=== PATIENT | female | born 1950 | race African-American/Black ===

== ENCOUNTER 2020-01-04 22:32 | Inpatient (IN) | payer OTHER ==
--- NOTE | 2020-01-04 22:44 | PDOC ---
History of Present Illness - General Stated Complaint: G-TUBE REPLACEMENT Time Seen by Provider: 01/04/20 22:44 History Source: Patient, [facility] Records Exam Limitations: Dementia - History of Present Illness Initial Comments: 69 [facility] with PMH schizophrenia, CHF, DM, asthma, GERD, dysphagia, cerebral infarction BIBA to ED for G/J tube clogging. [place] records indicated J-tube, which she receives tube feeds for, is clogged. Pt endoursed no complaints and denied pain. ROS General: denied fever, chills, generalized weakness. HEENT: denied sore throat, rhinorrhea, ear pain. Cardiovascular: denied chest pain, palpitations, syncope, diaphoresis. Respiratory: denied shortness of breath, cough, sputum production, hemoptysis. Gastrointestinal: denied abdominal pain, nausea, vomiting, diarrhea, constipation, blood in stool. Genitourinary: denied dysuria, increased urinary frequency, hematuria, urinary incontinence, flank pain. Back: denied back pain. Musculoskeletal: denied joint pain, muscle pain, joint swelling. Neurological: denied headache, dizziness, numbness, tingling, weakness. Integumentary: denied rash, laceration, abrasion. Hematologic/Lymphatic: denied bruising or bleeding. PE Constitutional: Well-nourished, Well-developed, appearing stated age. HEENT: head is normocephalic, atraumatic. EOMI. PERRLA. pinpoint pupils bilaterally. Neck: supple. Full ROM. Cardiovascular: regular heart rhythm. Normal S1 and S2. no murmurs. no pericardial friction rub. Respiratory: clear to auscultation bilaterally. no crackles, rhonchi or wheezing. no stridor. Chest: right chest permacath noted. Gastrointestinal: soft, flat, nontender. G/J tube noted to abdomen, appears in place, no surrounding erythema or discharge. The G portion is attached to a de la garza bag with yellow gastric contents. The J-tube has food particles in it. normal bowel sounds. no rebound, guarding, or masses. Extremities: peripheral pulses intact and equal. no lower extremity edema noted. Neurological: CN 2-12 grossly intact. moves all four extremities. Psych: awake, alert, oriented x3. follows commands. answers questions appropriately. speaks with few words. Past History - Past Medical History Allergies/Adverse Reactions: Allergies Allergy/AdvReac Type Severity Reaction Status Date / Time lactose Allergy Verified 01/10/20 18:31 levofloxacin Allergy Verified 01/10/20 18:31 lisinopril Allergy Verified 01/10/20 18:31 Phenothiazines Allergy Verified 01/10/20 18:31 sulfamethoxazole Allergy Verified 01/10/20 18:31 [From Bactrim] trimethoprim [From Bactrim] Allergy Verified 01/10/20 18:31 zoysn Allergy Uncoded 01/10/20 18:31 Home Medications: Ambulatory Orders Acetaminophen Oral Solution [Tylenol Oral Solution -] 650 mg GT Q6H PRN Albuterol 2.5/Ipratropium 0.5 [Duoneb -] 1 neb IH QID 01/10/20 Carvedilol [Coreg -] 12.5 mg GT BID 01/10/20 Clopidogrel Bisulfate [Plavix -] 75 mg GT DAILY 01/10/20 Dextran 70/Hypromellose/Pf [Genteal Tears 0.1%-0.3% Drop] 1 each OU TID Fludrocortisone Acetate [Florinef -] 0.1 mg GT ASDIR 01/10/20 Furosemide Oral Solution [Lasix Oral Solution -] 20 mg GT DAILY 01/10/20 Heparin Sodium,Porcine [Heparin Sodium] 5,000 unit IJ Q12H 01/10/20 Hydrocortisone [Cortef -] 10 mg GT DAILY 01/10/20 Insulin Lispro [Humalog] 100 unit SQ TID 01/10/20 Levothyroxine Sodium [Unithroid] 100 mcg GT DAILY 01/10/20 Pantoprazole Suspension [Protonix Packets For Oral Suspension -] 40 mg GT DAILY 01/10/20 Risperidone [Risperdal Oral Soln] 2 mg GT HS 01/10/20 Risperidone [Risperdal Oral Soln] 3 mg GT DAILY 01/10/20 Sennosides [Senna] 10 ml GT DAILY PRN 01/10/20 ED Treatment Course - LABORATORY CBC & Chemistry Diagram: 01/05/20 05:30 01/05/20 05:30 Medical Decision Making - Medical Decision Making 69 year old female with above PMH [facility]. Initial Vital Signs Temp Pulse Resp BP Pulse Ox 98.2 F 73 18 105/53 L 96 01/04/20 23:43 01/04/20 23:43 01/04/20 23:43 01/04/20 23:43 01/04/20 23:43 Afebrile. No tachycardia. No tachypnea. Mild hypotension. No hypoxia on room air. Labs ordered: CBC, CMP, coags, T&S Imaging ordered: CXR Medications ordered: none EKG performed at I attempted to flush the J-tube, but was unsuccessful, pt will need to be admitted for GI evaluation and possible replacement. CXR my view: large heart. no infiltrate noted. right chest port noted. pacer/ defibrillator noted. increased interstitial findings. -Pending official report EKG performed at 0053: rate 67, regular rhythm, normal axis, normal intervals, QTc 481, no acute ST changes. 01/05/20 00:27 Laboratory Last Values WBC 9.3 K/mm3 (4.0-10.0) 01/04/20 23:25 RBC 3.30 M/mm3 (3.60-5.2) L 01/04/20 23:25 Hgb 10.4 GM/dL (10.7-15.3) L 01/04/20 23:25 Hct 31.8 % (32.4-45.2) L 01/04/20 23:25 MCV 96.2 fl (80-96) H 01/04/20 23:25 MCH 31.4 pg (25.7-33.7) 01/04/20 23: MCHC 32.6 g/dl (32.0-36.0) 01/04/20 23:25 RDW 19.9 % (11.6-15.6) H 01/04/20 23:25 Plt Count 355 K/MM3 (134-434) 01/04/20 23:25 MPV 7.8 fl (7.5-11.1) 01/04/20 23:25 Absolute Neuts (auto) 7.4 K/mm3 (1.5-8.0) 01/04/20 23:25 Neutrophils % 78.9 % (42.8-82.8) 01/04/20 23:25 Lymphocytes % 13.4 % (8-40) 01/04/20 23:25 Monocytes % 6.2 % (3.8-10.2) 01/04/20 23:25 Eosinophils % 0.7 % (0-4.5) 01/04/20 23:25 Basophils % 0.8 % (0-2.0) 01/04/20 23:25 Nucleated RBC % 0 % (0-0) 01/04/20 23:25 PT with INR 10.80 SEC (9.7-13.0) 01/04/20 23:25 INR 0.92 (0.83-1.09) 01/04/20 23:25 PTT (Actin FS) 41.5 SECONDS (25.2-36.5) H 01/04/20 23:25 Sodium Cancelled 01/04/20 23:25 Potassium Cancelled 01/04/20 23:25 Chloride Cancelled 01/04/20 23:25 Carbon Dioxide Cancelled 01/04/20 23:25 Anion Gap Cancelled 01/04/20 23:25 BUN Cancelled 01/04/20 23:25 Creatinine Cancelled 01/04/20 23:25 Est GFR (CKD-EPI)AfAm Cancelled 01/04/20 23:25 Est GFR (CKD-EPI)NonAf Cancelled 01/04/20 23:25 Random Glucose Cancelled 01/04/20 23:25 Calcium Cancelled 01/04/20 23:25 Total Bilirubin Cancelled 01/04/20 23:25 AST Cancelled 01/04/20 23:25 ALT Cancelled 01/04/20 23:25 Alkaline Phosphatase Cancelled 01/04/20 23:25 Total Protein Cancelled 01/04/20 23:25 Albumin Cancelled 01/04/20 23:25 Lab reported CMP hemolyzed. Re-draw sent. Pt to be admitted for GI eval and possible J/G-tube replacement. Discharge - Discharge Information Problems reviewed: Yes Clinical Impression/Diagnosis: Jejunostomy malfunction Condition: Stable Disposition: HALFWAY FACILITY - Admission Yes - Follow up/Referral - Patient Discharge Instructions - Post Discharge Activity
--- NOTE | 2020-01-04 23:07 | PDOC ---
Documentation entered by Cassandra Samuels SCRIBE, acting as scribe for Anisa Bryant MD. Anisa Bryant MD: This documentation has been prepared by the Arvind rubio Xhesika, SCRIBE, under my direction and personally reviewed by me in its entirety. I confirm that the documentation accurately reflects all work, treatment, procedures, and medical decision making performed by me. Attending Attestation - Resident Resident Name: LorenaCat - ED Attending Attestation I have performed the following: I have examined & evaluated the patient, The case was reviewed & discussed with the resident, I agree w/resident's findings & plan, Exceptions are as noted - HPI HPI: 01/04/20 23:04 69-year-old female brought in by ambulance from [facility] for replacement of a GT tube that was clogged It is not clear from the notes from the [facility] when this tube was initially placed Patient has not been to the emergency department before - Physicial Exam PE: 01/04/20 23:05 69-year-old female presents with JG tube for evaluation Head normocephalic atraumatic Lungs are clear to auscultation CVS is regular rate rhythm S1-S2 Abdomen is nontender there is a G J-tube that is in place and the gastric tube is draining bile, the J-tube is clogged Skin warm and dry Neuro patient is alert, has halting speech that is difficult to understand - Medical Decision Making 01/04/20 23:06 Past medical history significant for dysphasia ,recurrent aspiration pneumonia and therefore placement of GJ tube pt also has GERD, schizophrenia, diabetes 01/04/20 23:06 Patient needs to be admitted for GI consult and possible IR for replacement of the GJ tube Admit MedSurg 01/05/20 00:42
[2020-01-04 23:36] LABS: BASO % 0.8 % (0-2.0); EOS % 0.7 % (0-4.5); HEMATOCRIT 31.8 % (32.4-45.2); HEMOGLOBIN 10.4 GM/dL (10.7-15.3); LYMPH % 13.4 % (8-40); MCH 31.4 pg (25.7-33.7); MCHC 32.6 g/dl (32.0-36.0); MEAN CELL VOLUME 96.2 fl (80-96); MEAN PLT VOLUME 7.8 fl (7.5-11.1); MONO % 6.2 % (3.8-10.2); NEUT % 78.9 % (42.8-82.8); PLATELET COUNT 355 K/MM3 (134-434); RDW 19.9 % (11.6-15.6); WHITE BLOOD COUNT 9.3 K/mm3 (4.0-10.0)
[2020-01-04 23:55] VITALS: BMI 33.3
[2020-01-04 23:56] LABS: INR 0.92 (0.83-1.09); PROTHROMBIN TIME (PATIENT) 10.8 SEC (9.7-13.0)
[2020-01-05] MEDS ORDERED: SODIUM CHLORIDE 500 ML IV STA (00:10)
[2020-01-05 01:08] LABS: ALBUMIN 2.5 g/dl (3.4-5.0); BILIRUBIN,TOTAL 0.4 mg/dL (0.2-1); BLOOD UREA NITROGEN 82.6 mg/dL (7-18); CALCIUM 9.5 mg/dL (8.5-10.1); CREATININE 1.7 mg/dL (0.55-1.3); POTASSIUM 4.5 mmol/L (3.5-5.1); TOT PROT 7.5 g/dl (6.4-8.2)
--- NOTE | 2020-01-05 02:41 | HP ---
CHIEF COMPLAINT: G-J tube malfunction PCP: Dr. Chapa HISTORY OF PRESENT ILLNESS: 69F PMH schizophrenia, CHF, DM, CKD stage 3, hypothyroidism, Asthma GERD, dysphagia, cerebral infarct who presents today due to G-J tube malfunction. As per group home report patient was receiving feeds until approximately 8:30pm at which point there as a new noise from the machine used to deliver feeds. Staff alerted the MD who recommended transfer to [place]. Upon arrival here the tube could not be flushed. Patient states she is comfortable, and denies any abdominal pain, nausea, vomiting, diarrhea. She denies chest pain, shortness of breath, dysuria, and fevers and chills. She is able to communicate with the examiner but not all sentences are coherent. ER course was notable for: (1) G-J tube was not able to be flushed. (2) Chest X-ray was completed, did not show any acute pathology (3) Initial labs showed hypochloremia, and Hgb of 10.4 Recent Travel: None PAST MEDICAL HISTORY:schizophrenia, CHF, DM, CKD stage 3, hypothyroidism, Asthma GERD, dysphagia, cerebral infarct PAST SURGICAL HISTORY: Denies FAMILY MEDICAL HISTORY: Denies Social History: Smoking:Denies Alcohol:Denies Drugs: Denies Allergies lactose Allergy (Verified 01/05/20 02:19) levofloxacin Allergy (Verified 01/05/20 02:19) lisinopril Allergy (Verified 01/05/20 02:19) Phenothiazines Allergy (Verified 01/05/20 02:19) sulfamethoxazole [From Bactrim] Allergy (Verified 01/05/20 02:19) trimethoprim [From Bactrim] Allergy (Verified 01/05/20 02:19) zoysn Allergy (Uncoded 01/05/20 02:19) HOME MEDICATIONS: Home Medications Medication Instructions Recorded Albuterol 2.5/Ipratropium 0.5 3 ml NEB QID 01/05/20 [Duoneb -] Carvedilol [Coreg -] 12.5 mg GT BID 01/05/20 Clopidogrel Bisulfate [Clopidogrel] 75 mg GT DAILY 01/05/20 Dextran 70/Hypromellose/Pf 1 drop OU TID@0900,1700,2100 01/05/20 [Genteal Tears 0.1%-0.3% Drop] Fludrocortisone Acetate 1 tab GT ASDIR 01/05/20 Furosemide Oral Solution [Lasix 20 ml GT DAILY 01/05/20 Oral Solution -] Hydrocortisone 10 mg GT DAILY 01/05/20 Insulin Lispro [Humalog Kwikpen See Protocol SQ QID 01/05/20 U-100] Levothyroxine [Synthroid -] 100 mcg GT DAILY 01/05/20 Menthol/Zinc Oxide [Calmoseptine 1 applic TP TID 01/05/20 Ointment] Omeprazole 40 mg GT DAILY 01/05/20 Risperidone [Risperdal] 2 ml GT DAILY@1530 01/05/20 Risperidone [Risperdal] 3 ml GT DAILY@0900 01/05/20 REVIEW OF SYSTEMS CONSTITUTIONAL: Absent: fever, chills, diaphoresis, generalized weakness, malaise, loss of appetite, weight change HEENT: Absent: rhinorrhea, nasal congestion, throat pain, throat swelling, difficulty swallowing, mouth swelling, ear pain, eye pain, visual changes CARDIOVASCULAR: Absent: chest pain, syncope, palpitations, irregular heart rate, lightheadedness , peripheral edema RESPIRATORY: Absent: cough, shortness of breath, dyspnea with exertion, orthopnea, wheezing, stridor, hemoptysis GASTROINTESTINAL: Absent: abdominal pain, abdominal distension, nausea, vomiting, diarrhea, constipation, melena, hematochezia GENITOURINARY: Absent: dysuria, frequency, urgency, hesitancy, hematuria, flank pain, genital pain MUSCULOSKELETAL: Absent: myalgia, arthralgia, joint swelling, back pain, neck pain SKIN: Absent: rash, itching, pallor HEMATOLOGIC/IMMUNOLOGIC: Absent: easy bleeding, easy bruising, lymphadenopathy, frequent infections ENDOCRINE: Absent: unexplained weight gain, unexplained weight loss, heat intolerance, cold intolerance NEUROLOGIC: Absent: headache, focal weakness or paresthesias, dizziness, unsteady gait, seizure, mental status changes, bladder or bowel incontinence PHYSICAL EXAMINATION Vital Signs - 24 hr 01/04/20 01/05/20 23:43 02:36 Temperature 98.2 F 97.1 F L Pulse Rate 73 73 Respiratory 18 Rate Blood Pressure 105/53 L 109/67 O2 Sat by Pulse 96 Oximetry (%) GENERAL: Awake, alert, and fully oriented, in no acute distress. HEAD: Normal with no signs of trauma. EYES:ISABELLA, sclera anicteric EARS, NOSE, THROAT: Moist mucous membranes. LUNGS: Breath sounds equal, clear to auscultation bilaterally. No wheezes, and no crackles. No accessory muscle use. HEART: Regular rate and rhythm, normal S1 and S2 without murmur, rub or gallop. ABDOMEN: Nontender, normoactive bowel sounds. G-tube in placed, draining bilious drainage. Slight erythema around placement site. UPPER EXTREMITIES: 2+ pulses, warm, well-perfused. No cyanosis. No clubbing. No peripheral edema. LOWER EXTREMITIES: 2+ pulses, warm, well-perfused. No calf tenderness. No peripheral edema. NEUROLOGICAL: Cranial nerves II-XII intact. PSYCHIATRIC: Cooperative. Good eye contact. Appropriate mood and affect. ill. Laboratory Results - last 24 hr 01/04/20 01/04/20 01/04/20 23:25 23:25 23:25 WBC 9.3 RBC 3.30 L Hgb 10.4 L Hct 31.8 L MCV 96.2 H MCH 31.4 MCHC 32.6 RDW 19.9 H Plt Count 355 MPV 7.8 Absolute Neuts (auto) 7.4 Neutrophils % 78.9 Lymphocytes % 13.4 Monocytes % 6.2 Eosinophils % 0.7 Basophils % 0.8 Nucleated RBC % 0 PT with INR INR PTT (Actin FS) 41.5 H Sodium Cancelled Potassium Cancelled Chloride Cancelled Carbon Dioxide Cancelled Anion Gap Cancelled BUN Cancelled Creatinine Cancelled Est GFR (CKD-EPI)AfAm Cancelled Est GFR (CKD-EPI)NonAf Cancelled Random Glucose Cancelled Calcium Cancelled Total Bilirubin Cancelled AST Cancelled ALT Cancelled Alkaline Phosphatase Cancelled Total Protein Cancelled Albumin Cancelled Blood Type Antibody Screen 01/04/20 01/04/20 01/05/20 23:25 23:25 00:24 WBC RBC Hgb Hct MCV MCH MCHC RDW Plt Count MPV Absolute Neuts (auto) Neutrophils % Lymphocytes % Monocytes % Eosinophils % Basophils % Nucleated RBC % PT with INR 10.80 INR 0.92 PTT (Actin FS) Sodium 134 L Potassium 4.5 Chloride 94 L Carbon Dioxide 30 Anion Gap 11 BUN 82.6 H Creatinine 1.7 H Est GFR (CKD-EPI)AfAm 35.29 Est GFR (CKD-EPI)NonAf 30.45 Random Glucose 98 Calcium 9.5 Total Bilirubin 0.4 AST 17 ALT 15 Alkaline Phosphatase 169 H Total Protein 7.5 Albumin 2.5 L Blood Type B NEGATIVE Antibody Screen Negative ASSESSMENT/PLAN: 69F PMH schizophrenia, CHF, DM, CKD stage 3, hypothyroidism, Asthma GERD, dysphagia, cerebral infarct who presents today due to G-J tube malfunction. 1) Clogged G-J tube -J-tube was working until evening today. Unable to flush in the ED. Draining bilious fluid in the bag. -NPO -GI consulted appreciate recs 2)Hx of DM -HbA1c -Insulin Sliding scale 3) GERD -Holding home medications due to dysphagia and G-tube malfunction 4)Hypothyroidism -Holding home synthroid until tube replaced 5) Hx of CHF -Holding clopidogrel, carvedilol until Tube is replaced 6) Schizophrenia -Holding Risperdal until tube replaced 7)Normoctic anemia -Iron studies, ferritin, TSH, B12 8) Hx of CKD -Continue monitoring Creatinine and BUN -NS @ 75 ml/hr 9) Elevated transaminase -RUQ US F: NS @ 75 ml/hr E: Trend CMP N: NPO Dispo: Admit to Med/Surg Visit type - Emergency Visit Emergency Visit: Yes ED Registration Date: 01/05/20 Care time: The patient presented to the Emergency Department on the above date and was hospitalized for further evaluation of their emergent condition. - New Patient This patient is new to me today: Yes Date on this admission: 01/05/20 - Critical Care Critical Care patient: No ATTENDING PHYSICIAN STATEMENT I saw and evaluated the patient. I reviewed the resident's note and discussed the case with the resident. I agree with the resident's findings and plan as documented. SUBJECTIVE: OBJECTIVE: ASSESSMENT AND PLAN:
--- NOTE | 2020-01-05 04:18 | PN ---
Teaching Attending Note Name of Resident: Shena Plata ATTENDING PHYSICIAN STATEMENT I saw and evaluated the patient. I reviewed the resident's note and discussed the case with the resident. I agree with the resident's findings and plan as documented. SUBJECTIVE: History obtained from medical records and ER records as patient is a poor historian. 69-year-old resident of [facility] with history of schizophrenia, CHF status post AICD, status post right chest Chemo-Port insertion, diabetes mellitus, asthma, GERD, dysphagia, CVA brought in by ambulance after J-tube was clogged and unable to be flushed. Patient herself does not have any complaints. OBJECTIVE: Last Vital Signs Temp Pulse Resp BP Pulse Ox 97.1 F L 73 18 109/67 99 01/05/20 02:36 01/05/20 02:36 01/04/20 23:43 01/05/20 02:36 01/05/20 04:00 On physical exam patient was a elderly lady with unintelligible speech appeared to be sitting in chair. Not in any visible distress. Lungs are clear to auscultation bilaterally, cardiac exam showed S1, S2 with normal rate and rhythm. Abdomen was soft nontender with normal bowel sounds with PEG in place. No lower extremity edema appreciated Abnormal Lab Results 01/04/20 01/04/20 01/05/20 23:25 23:25 00:24 RBC 3.30 L Hgb 10.4 L Hct 31.8 L MCV 96.2 H RDW 19.9 H PTT (Actin FS) 41.5 H Sodium 134 L Chloride 94 L BUN 82.6 H Creatinine 1.7 H Alkaline Phosphatase 169 H Albumin 2.5 L Imaging studies reviewed ASSESSMENT AND PLAN: #Clogged J-tube Admit to [facility] GI consult for J-tube replacement PT/PTT/type and screen Keep n.p.o. for now Fall precautions and bedrest #Diabetes mellitus Send A1c NovoLog sliding scale Basal insulin #GERD Holding medication till J-tube was replaced #Hypothyroidism Holding Synthroid until J-tube is replaced #CHF/CAD? Hold clopidogrel, carvedilol until J-tube is replaced #Schizophrenia Hold Risperdal until J-tube is replaced #Normocytic anemia Iron studies, ferritin, TSH, vitamin B12 #Elevated creatinineuncertain if CKD or DONIS Trend renal parameters IV fluid hydration #Hypoalbuminemia #Elevated alk phos Right upper quadrant ultrasound #DVT prophylaxisheparin subcutaneously
[2020-01-05] MEDS ORDERED: HEPARIN NA (PORCINE) 5,000 UNITS/ML 1ML VIAL ONE (06:24)
[2020-01-05 06:30] LABS: BASO % 0.6 % (0-2.0); EOS % 1.1 % (0-4.5); HEMATOCRIT 30.8 % (32.4-45.2); HEMOGLOBIN 10.4 GM/dL (10.7-15.3); LYMPH % 17.8 % (8-40); MCH 31.9 pg (25.7-33.7); MCHC 33.7 g/dl (32.0-36.0); MEAN CELL VOLUME 94.6 fl (80-96); MEAN PLT VOLUME 7.5 fl (7.5-11.1); MONO % 5.4 % (3.8-10.2); NEUT % 75.1 % (42.8-82.8); PLATELET COUNT 398 K/MM3 (134-434); RBC 3.26 M/mm3 (3.60-5.2); RDW 20.1 % (11.6-15.6); WHITE BLOOD COUNT 8.4 K/mm3 (4.0-10.0)
[2020-01-05] MEDS: HEPARIN NA (PORCINE) 5,000 UNITS/ML 1ML VIAL SQ SCH ×3 (06:33→21:19)
[2020-01-05] MEDS: INSULIN SLIDING SCALE (NOVOLOG) 1 VIAL SQ SCH ×4 (06:33→21:20)
[2020-01-05 06:42] LABS: INR 0.92 (0.83-1.09); PROTHROMBIN TIME (PATIENT) 10.8 SEC (9.7-13.0)
[2020-01-05 06:45] LABS: ACTIVATED PTT 58.9 SECONDS (25.2-36.5)
[2020-01-05 07:07] LABS: ALBUMIN 2.8 g/dl (3.4-5.0); BILIRUBIN,TOTAL 0.3 mg/dL (0.2-1); BLOOD UREA NITROGEN 89.4 mg/dL (7-18); CREATININE 1.8 mg/dL (0.55-1.3); POTASSIUM 4.6 mmol/L (3.5-5.1); TOT PROT 7.9 g/dl (6.4-8.2)
--- NOTE | 2020-01-05 10:41 | EKG ---
Test Reason : Blood Pressure : / mmHG Vent. Rate : 067 BPM Atrial Rate : 067 BPM P-R Int : 162 ms QRS Dur : 094 ms QT Int : 456 ms P-R-T Axes : 055 -22 034 degrees QTc Int : 481 ms NORMAL SINUS RHYTHM POSSIBLE LEFT ATRIAL ENLARGEMENT LEFT VENTRICULAR HYPERTROPHY ABNORMAL ECG NO PREVIOUS ECGS AVAILABLE Confirmed by Rom Scott MD ([id number]) on 01/05/2020 10:41:09 AM Referred By: Confirmed By:Rom Scott MD
[2020-01-05] MEDS ORDERED: VANCOMYCIN 1 GM in D5W (PRE-DOCKED) 1,000 MG/250 ML IVPB ONE (11:13)
[2020-01-05] MEDS ORDERED: HYDROCORTISONE SOD SUCCINATE 100 MG/2 ML VIAL IVPB SCH (11:15)
--- NOTE | 2020-01-05 11:26 | PN ---
Progress Note (short form) - Note Progress Note: Spoke with PMD- DR Chapa-- h/o adrenal insufficiency , schizophrenia,CHF, GERD , large hiatal hernia, CAD, s/p PPM She is hypothermic-- as per PMD-- she is on Florinef-- she gets episodes of hypotension, hypothermia No distress She was sent here by [facility] [place] for malfunction J tube Vital Signs - 24 hr 01/04/20 01/05/20 01/05/20 23:43 02:36 04:00 Temperature 98.2 F 97.1 F L Pulse Rate 73 73 Pulse Rate [ Left] Pulse Rate [ Right Radial] Respiratory 18 Rate Blood Pressure 105/53 L 109/67 Blood Pressure [Left Arm] Blood Pressure [Right Arm] O2 Sat by Pulse 96 99 Oximetry (%) 01/05/20 01/05/20 01/05/20 04:35 06:43 10:54 Temperature 95.0 F L Pulse Rate 76 Pulse Rate [ 78 Left] Pulse Rate [ 75 Right Radial] Respiratory 19 16 18 Rate Blood Pressure 101/59 L Blood Pressure 107/63 [Left Arm] Blood Pressure 102/71 [Right Arm] O2 Sat by Pulse 96 99 Oximetry (%) Current Medications Generic Name Dose Route Start Last Admin Trade Name Freq PRN Reason Stop Dose Admin Heparin Sodium (Porcine) 5,000 unit 01/05/20 06:00 01/05/20 06:33 Heparin - SQ 5,000 unit TID [facility] Administration Hydrocortisone Sodium Succinate 100 mg 01/05/20 11:15 Solu-Cortef - IVPB Q8H [facility] Dextrose/Sodium Chloride 1,000 mls @ 83 mls/hr 01/05/20 11:15 D5-Ns - IV ASDIR [facility] Insulin Aspart 1 vial 01/05/20 07:00 01/05/20 06:33 Novolog Vial Sliding Scale - SQ Not Given ACHS [facility] Protocol Laboratory Results - last 24 hr 01/04/20 01/04/20 01/04/20 23:25 23:25 23:25 WBC 9.3 RBC 3.30 L Hgb 10.4 L Hct 31.8 L MCV 96.2 H MCH 31.4 MCHC 32.6 RDW 19.9 H Plt Count 355 MPV 7.8 Absolute Neuts (auto) 7.4 Neutrophils % 78.9 Lymphocytes % 13.4 Monocytes % 6.2 Eosinophils % 0.7 Basophils % 0.8 Nucleated RBC % 0 PT with INR INR PTT (Actin FS) 41.5 H Sodium Cancelled Potassium Cancelled Chloride Cancelled Carbon Dioxide Cancelled Anion Gap Cancelled BUN Cancelled Creatinine Cancelled Est GFR (CKD-EPI)AfAm Cancelled Est GFR (CKD-EPI)NonAf Cancelled POC Glucometer Random Glucose Cancelled Hemoglobin A1c % Calcium Cancelled Iron TIBC Iron Saturation Unsaturated IBC Ferritin Total Bilirubin Cancelled AST Cancelled ALT Cancelled Alkaline Phosphatase Cancelled Total Protein Cancelled Albumin Cancelled Vitamin B12 TSH Blood Type Antibody Screen 01/04/20 01/04/20 01/05/20 23:25 23:25 00:24 WBC RBC Hgb Hct MCV MCH MCHC RDW Plt Count MPV Absolute Neuts (auto) Neutrophils % Lymphocytes % Monocytes % Eosinophils % Basophils % Nucleated RBC % PT with INR 10.80 INR 0.92 PTT (Actin FS) Sodium 134 L Potassium 4.5 Chloride 94 L Carbon Dioxide 30 Anion Gap 11 BUN 82.6 H Creatinine 1.7 H Est GFR (CKD-EPI)AfAm 35.29 Est GFR (CKD-EPI)NonAf 30.45 POC Glucometer Random Glucose 98 Hemoglobin A1c % Calcium 9.5 Iron TIBC Iron Saturation Unsaturated IBC Ferritin Total Bilirubin 0.4 AST 17 ALT 15 Alkaline Phosphatase 169 H Total Protein 7.5 Albumin 2.5 L Vitamin B12 TSH Blood Type B NEGATIVE Antibody Screen Negative 01/05/20 01/05/20 01/05/20 05:30 05:30 05:30 WBC 8.4 RBC 3.26 L Hgb 10.4 L Hct 30.8 L MCV 94.6 MCH 31.9 MCHC 33.7 RDW 20.1 H Plt Count 398 MPV 7.5 Absolute Neuts (auto) 6.3 Neutrophils % 75.1 Lymphocytes % 17.8 D Monocytes % 5.4 Eosinophils % 1.1 Basophils % 0.6 Nucleated RBC % 0 PT with INR 10.80 INR 0.92 PTT (Actin FS) 58.9 H Sodium 135 L Potassium 4.6 Chloride 90 L Carbon Dioxide 35 H Anion Gap 11 BUN 89.4 H Creatinine 1.8 H Est GFR (CKD-EPI)AfAm 32.94 Est GFR (CKD-EPI)NonAf 28.42 POC Glucometer Random Glucose 124 H Hemoglobin A1c % Calcium 10.0 Iron 93 TIBC 380 Iron Saturation 24 Unsaturated IBC 287 H Ferritin 623.1 H Total Bilirubin 0.3 AST 16 ALT 19 Alkaline Phosphatase 180 H Total Protein 7.9 Albumin 2.8 L Vitamin B12 857 TSH 7.31 H Blood Type Antibody Screen 01/05/20 01/05/20 05:30 06:22 WBC RBC Hgb Hct MCV MCH MCHC RDW Plt Count MPV Absolute Neuts (auto) Neutrophils % Lymphocytes % Monocytes % Eosinophils % Basophils % Nucleated RBC % PT with INR INR PTT (Actin FS) Sodium Potassium Chloride Carbon Dioxide Anion Gap BUN Creatinine Est GFR (CKD-EPI)AfAm Est GFR (CKD-EPI)NonAf POC Glucometer 118 Random Glucose Hemoglobin A1c % 4.9 Calcium Iron TIBC Iron Saturation Unsaturated IBC Ferritin Total Bilirubin AST ALT Alkaline Phosphatase Total Protein Albumin Vitamin B12 TSH Blood Type Antibody Screen S1 S2 RRR Lungs clear Abd- soft, NT Right chest wall portcath Left PPM J tube + No edema A/P Adrenal insuff -- start Hydrocortisone IV -- on jessica hugger as she is hypothermic Malfunction J tube -- GI called by hospitalist team -- IR consult -- iv fluids DVT prophylaxis-- Heparin sc Problem List - Problems (1) Adrenal insufficiency Code(s): E27.40 - UNSPECIFIED ADRENOCORTICAL INSUFFICIENCY (2) CHF (congestive heart failure) Code(s): I50.9 - HEART FAILURE, UNSPECIFIED (3) CAD (coronary artery disease) Code(s): I25.10 - ATHSCL HEART DISEASE OF [place] CORONARY ARTERY W/O ANG PCTRS (4) Jejunostomy malfunction Code(s): K94.13 - ENTEROSTOMY MALFUNCTION
[2020-01-05] MEDS: DEXTROSE 5%-NORMAL SALINE 1,000 ML IV SCH (11:33)
[2020-01-05] MEDS ORDERED: LEVOTHYROXINE SODIUM 100 MCG VIAL IVPUSH SCH (12:00)
[2020-01-05] MEDS ORDERED: PT OWN MED DRAWER 7, Y5N ONE ×2 (12:28→21:11)
--- NOTE | 2020-01-05 14:19 | CON.GI ---
Consult Consult Specialty:: GI Referred by:: Dr. Plata Reason for Consultation:: Clogged J-tube - History of Present Illness Chief Complaint: Clogged J-tube History of Present Illness: Called to see patient for clogged G-J tube. Gastrostomy tube flushes without issue. Unable to pass material through jejunostomy port with modest pressure. Attempted to pass endoscopy cleaning brush, but lumen too narrow. Reason for J portion not clear. Date of placement unclear as well. Patient not conversant. - History Source History Provided By: Medical Record Limitations to Obtaining History: Unresponsive - Alcohol/Substance Use Hx Alcohol Use: No - Smoking History Smoking history: Unknown if ever smoked Have you smoked in the past 12 months: No Home Medications - Allergies Allergies/Adverse Reactions: Allergies Allergy/AdvReac Type Severity Reaction Status Date / Time lactose Allergy Verified 01/05/20 02:19 levofloxacin Allergy Verified 01/05/20 02:19 lisinopril Allergy Verified 01/05/20 02:19 Phenothiazines Allergy Verified 01/05/20 02:19 sulfamethoxazole Allergy Verified 01/05/20 02:19 [From Bactrim] trimethoprim [From Bactrim] Allergy Verified 01/05/20 02:19 zoysn Allergy Uncoded 01/05/20 02:19 - Home Medications Home Medications: Ambulatory Orders Albuterol 2.5/Ipratropium 0.5 [Duoneb -] 3 ml NEB QID 01/05/20 Carvedilol [Coreg -] 12.5 mg GT BID 01/05/20 Clopidogrel Bisulfate [Clopidogrel] 75 mg GT DAILY 01/05/20 Dextran 70/Hypromellose/Pf [Genteal Tears 0.1%-0.3% Drop] 1 drop OU TID@0900, 1700,2100 01/05/20 Fludrocortisone Acetate 1 tab GT ASDIR 01/05/20 Furosemide Oral Solution [Lasix Oral Solution -] 20 ml GT DAILY 01/05/20 Hydrocortisone 10 mg GT DAILY 01/05/20 Insulin Lispro [Humalog Kwikpen U-100] See Protocol SQ QID 01/05/20 Levothyroxine [Synthroid -] 100 mcg GT DAILY 01/05/20 Menthol/Zinc Oxide [Calmoseptine Ointment] 1 applic TP TID 02/12/20 Omeprazole 40 mg GT DAILY 01/05/20 Risperidone [Risperdal] 2 ml GT DAILY@1530 01/05/20 Risperidone [Risperdal] 3 ml GT DAILY@0900 01/05/20 Physical Exam-GI Vital Signs: Vital Signs Temperature 95.0 F L 01/05/20 10:54 Pulse Rate 76 01/05/20 10:54 Respiratory Rate 18 01/05/20 10:54 Blood Pressure 101/59 L 01/05/20 10:54 O2 Sat by Pulse Oximetry (%) 91 L 01/05/20 12:57 Gastrointestinal Inspection: Yes: Other (G-tube with multiple ports epigastrum.) ...Palpate: Yes: Soft. No: Tenderness Labs: CBC, BMP 01/05/20 05:30 01/05/20 05:30 INR, PTT INR 0.92 (0.83-1.09) 01/05/20 05:30 Assessment/Plan Reviewed with 8W nurse. Agree with current plan for IR to OK to use G-tube for meds at this time. Uncertain reason for J portion of G-J tube. Will reassess following IR evaluation.
[2020-01-05] MEDS: HYDROCORTISONE 10 MG TABLET GT SCH (17:38)
[2020-01-05] MEDS: LEVOTHYROXINE NA 100 MCG TABLET (FP) GT SCH (17:38)
[2020-01-05] MEDS ORDERED: INSULIN (NOVOLOG) ASPART 100 UNITS/ML 10ML VIAL ONE (21:11)
[2020-01-05] MEDS: CARVEDILOL 12.5 MG TABLET (FP) GT SCH (21:20)
[2020-01-06] MEDS: FAMOTIDINE 40 MG/5 ML ORAL SUSPENSION NGT SCH ×2 (00:20→09:40)
[2020-01-06] MEDS: HEPARIN NA (PORCINE) 5,000 UNITS/ML 1ML VIAL SQ SCH ×2 (06:24→14:36)
[2020-01-06] MEDS: INSULIN SLIDING SCALE (NOVOLOG) 1 VIAL SQ SCH ×3 (06:24→18:11)
[2020-01-06] MEDS ORDERED: risperiDONE 1 MG/1 ML ML - 30 ML BOTTLE GT SCH ×2 (09:00→15:30)
[2020-01-06] MEDS ORDERED: PT OWN MED DRAWER 7, Y5N ONE ×2 (09:33→14:34)
[2020-01-06] MEDS: HYDROCORTISONE 10 MG TABLET GT SCH (09:39)
[2020-01-06] MEDS: LEVOTHYROXINE NA 100 MCG TABLET (FP) GT SCH (09:39)
[2020-01-06] MEDS: CARVEDILOL 12.5 MG TABLET (FP) GT SCH (09:39)
[2020-01-06] MEDS ORDERED: FUROSEMIDE 40 MG/5 ML UNIT-DOSE CUP GT SCH (10:00)
[2020-01-06] MEDS ORDERED: FLUDROCORTISONE ACETATE 0.1 MG TABLET (FP) GT SCH (10:00)
[2020-01-06] MEDS ORDERED: MORPHINE SULFATE 2 MG/ML VIAL IVPUSH PRN (11:04)
--- NOTE | 2020-01-06 11:33 | DS ---
Physical Examination Vital Signs: Vital Signs Temperature 95.0 F L 01/06/20 09:38 Pulse Rate 75 01/06/20 09:38 Respiratory Rate 18 01/06/20 09:38 Blood Pressure 124/70 01/06/20 09:38 O2 Sat by Pulse Oximetry (%) 94 L 01/05/20 21:00 Constitutional: Yes: No Distress Cardiovascular: Yes: Regular Rate and Rhythm Respiratory: Yes: Diminished Gastrointestinal: Yes: Normal Bowel Sounds, Soft. No: Tenderness Edema: No Labs: CBC, BMP 01/05/20 05:30 01/05/20 05:30 Discharge Summary Problems reviewed: Yes Reason For Visit: MALFUNCTION OF JEJUNOSTOMY Current Active Problems Adrenal insufficiency (Acute) CAD (coronary artery disease) (Acute) CHF (congestive heart failure) (Acute) Jejunostomy malfunction (Acute) Health Concerns: sent from [facility] for malfunction J tube GI evaluated pt-- gastric port is working but J - port is not Sent to IR today now functioning well stable for dc to [place] Condition: Stable - Instructions Referrals: Reymundo Chapa MD [Primary Care Provider] - Disposition: [facility] - Home Medications Comprehensive Discharge Medication List: Ambulatory Orders Albuterol 2.5/Ipratropium 0.5 [Duoneb -] 3 ml NEB QID 01/05/20 Carvedilol [Coreg -] 12.5 mg GT BID 01/05/20 Clopidogrel Bisulfate [Clopidogrel] 75 mg GT DAILY 01/05/20 Dextran 70/Hypromellose/Pf [Genteal Tears 0.1%-0.3% Drop] 1 drop OU TID@0900, 1700,2100 01/05/20 Fludrocortisone Acetate 1 tab GT ASDIR 01/05/20 Furosemide Oral Solution [Lasix Oral Solution -] 20 ml GT DAILY 01/05/20 Hydrocortisone 10 mg GT DAILY 01/05/20 Insulin Lispro [Humalog Kwikpen U-100] See Protocol SQ QID 01/05/20 Levothyroxine [Synthroid -] 100 mcg GT DAILY 01/05/20 Menthol/Zinc Oxide [Calmoseptine Ointment] 1 applic TP TID 01/05/20 Omeprazole 40 mg GT DAILY 01/05/20 Risperidone [Risperdal] 2 ml GT DAILY@1530 01/05/20 Risperidone [Risperdal] 3 ml GT DAILY@0900 01/05/20
[2020-01-06] MEDS: DEXTROSE 5%-NORMAL SALINE 1,000 ML IV SCH (11:57)
[2020-01-06 19:08] VITALS: BP 120/68; PULSE 45; TEMP 98
== END 2020-01-06 21:12 | DRG 394 ==
LOC: JER 22:32 → JERBED 01-05 00:27 → J8W 01-05 09:14
PROVIDERS: ADMIT Internal Medicine; ATTEND Internal Medicine
PROC: 0D2 Gastrointestinal System, Change (ICD-10-PCS; principal; 2020-01-06)
DX: K94.13 Enterostomy malfunction (principal); I13.0 Hypertensive heart and chronic kidney disease with heart failure and stage 1 through stage 4 chronic kidney disease, or unspecified chronic kidney disease; E27.40 Unspecified adrenocortical insufficiency; E11.9 Type 2 diabetes mellitus without complications; I50.9 Heart failure, unspecified; J45.909 Unspecified asthma, uncomplicated; F20.9 Schizophrenia, unspecified; D64.9 Anemia, unspecified; R74.0 Nonspecific elevation of levels of transaminase and lactic acid dehydrogenase [LDH]; E03.9 Hypothyroidism, unspecified; E88.09 Other disorders of plasma-protein metabolism, not elsewhere classified; I25.10 Atherosclerotic heart disease of native coronary artery without angina pectoris; K21.9 Gastro-esophageal reflux disease without esophagitis; N18.3 Chronic kidney disease, stage 3 (moderate); Y83.9 Surgical procedure, unspecified as the cause of abnormal reaction of the patient, or of later complication, without mention of misadventure at the time of the procedure
CPT/HCPCS: 36415; 49452; 71045-TC-FY; 76000-TC-FY; 76705-TC; 80053; 82607; 82728; 82962; 83036; 83540; 83550; 84443; 85025; 85610; 85730; 86850; 86900; 86901; 93005; 93010; 99285-25; C1769; C1887; J1644

== ENCOUNTER 2020-01-10 18:14 | Inpatient (IN) | payer OTHER ==
--- NOTE | 2020-01-10 18:27 | PDOC ---
History of Present Illness - General Chief Complaint: Revisit, Lab Variance Stated Complaint: ABNOMRAL LABS Time Seen by Provider: 01/10/20 18:24 History Source: Patient Exam Limitations: No Limitations - History of Present Illness Initial Comments: 01/10/20 18:25 HPI: 69yo F PMH schizophrenia, CHF, CKD, DM, asthma, GERD, dysphagia, cerebral infarction BIBEMS from [facility] for elevated K (6.2). Patient denies any symptoms, when asked if anything is bothering her she requests a kate tigist. Has jejunostomy tube in place, de la garza catheter draining somewhat cloudy urine. Denies fevers, chills, chest/abdominal pain, nausea, vomiting, SOB. All: Per chart Meds: Per chart PMH: As above PSH: Per chart [facility] Past History - Travel Traveled outside of the country in the last 30 days: No Close contact w/someone who was outside of country & ill: No - Past Medical History Allergies/Adverse Reactions: Allergies Allergy/AdvReac Type Severity Reaction Status Date / Time lactose Allergy Verified 01/10/20 18:31 levofloxacin Allergy Verified 01/10/20 18:31 lisinopril Allergy Verified 01/10/20 18:31 Phenothiazines Allergy Verified 01/10/20 18:31 sulfamethoxazole Allergy Verified 01/10/20 18:31 [From Bactrim] trimethoprim [From Bactrim] Allergy Verified 01/10/20 18:31 zoysn Allergy Uncoded 01/10/20 18:31 Home Medications: Ambulatory Orders Acetaminophen Oral Solution [Tylenol Oral Solution -] 650 mg GT Q6H PRN Albuterol 2.5/Ipratropium 0.5 [Duoneb -] 1 neb IH QID 01/10/20 Carvedilol [Coreg -] 12.5 mg GT BID 01/10/20 Clopidogrel Bisulfate [Plavix -] 75 mg GT DAILY 01/10/20 Dextran 70/Hypromellose/Pf [Genteal Tears 0.1%-0.3% Drop] 1 each OU TID Fludrocortisone Acetate [Florinef -] 0.1 mg GT ASDIR 01/10/20 Furosemide Oral Solution [Lasix Oral Solution -] 20 mg GT DAILY 01/10/20 Heparin Sodium,Porcine [Heparin Sodium] 5,000 unit IJ Q12H 01/10/20 Hydrocortisone [Cortef -] 10 mg GT DAILY 01/10/20 Insulin Lispro [Humalog] 100 unit SQ TID 01/10/20 Levothyroxine Sodium [Unithroid] 100 mcg GT DAILY 01/10/20 Pantoprazole Suspension [Protonix Packets For Oral Suspension -] 40 mg GT DAILY 01/10/20 Risperidone [Risperdal Oral Soln] 2 mg GT HS 01/10/20 Risperidone [Risperdal Oral Soln] 3 mg GT DAILY 01/10/20 Sennosides [Senna] 10 ml GT DAILY PRN 01/10/20 Anemia: Yes Asthma: Yes COPD: Yes CHF: Yes GI Disorders: Yes (GERD) - Psycho Social/Smoking Cessation Hx Smoking History: Unknown if ever smoked Have you smoked in the past 12 months: No Hx Alcohol Use: No Drug/Substance Use Hx: No Substance Use Type: None Hx Substance Use Treatment: No Review of Systems - Review of Systems Able to Perform ROS?: Yes Is the patient limited Norwegian proficient: Yes Constitutional: No: Chills, Fever, Weakness HEENTM: No: Nose Congestion, Throat Pain Respiratory: No: Cough, Shortness of Breath Cardiac (ROS): No: Chest Pain, Irregular Heart Rate, Lightheadedness, Palpitations, Syncope, Chest Tightness ABD/GI: No: Constipated, Diarrhea, Nausea, Poor Appetite, Poor Fluid Intake, Vomiting : No: Burning, Dysuria, Frequency Musculoskeletal: No: Back Pain, Muscle Pain, Muscle Weakness Integumentary: No: Pruritus, Rash Neurological: No: Headache, Numbness, Tingling, Weakness Psychiatric: No: Stressors, Change in Appetite Endocrine: No: Increased Thirst, Increased Urine Hematologic/Lymphatic: No: Anemia, Blood Clots, Easy Bleeding All Other Systems: Reviewed and Negative *Physical Exam - Physical Exam 01/10/20 19:02 Vitals reviewed, AFVSS, borderline hypotensive GEN: Chronically ill, appears stated age, NAD, comfortable. AAOx2 (name, hospital, did not know president). HEENT: NCAT, EOMI, PERRL. Sclera anicteric, non-injected. No facial asymmetry. Moist mucous membranes. Trachea midline. CV: RRR, S1/S2, no murmurs / rubs / gallops appreciated. LUNG: CTAB, normal work of breathing. No wheezes, rales, rhonchi. No cough. Speaking full sentences. GI: Soft, NTND, +BS, no guarding, no rebound. No masses. Neg CVAT b/l. + Jejunostomy tube in place, de la garza in place. EXTREMITIES: 2+ distal pulses. No LE edema. No obvious deformities of all extremities. SKIN: Warm, dry, no rashes appreciated, non-jaundiced. PSYCH: Normal mood and affect. Cooperative and appropriate. NEURO: CN grossly intact. Moving all extremities well. Normal strength and sensation grossly. ED Treatment Course - LABORATORY CBC & Chemistry Diagram: 01/10/20 19:20 01/10/20 21:41 Medical Decision Making - Critical Care Time Total Critical Care Time (minutes): 90 Critical Care Statement: The care of this patient involved high complexity decision making to prevent further life threatening deterioration of the patient 's condition and/or to evaluate & treat vital organ system(s) failure or risk of failure. Management of critical high potassium, torsade de pointes. - Medical Decision Making 01/10/20 18:40 69yo F PMH schizophrenia, CHF, CKD, DM, asthma, GERD, dysphagia, cerebral infarction BIBEMS from [facility] for elevated K (6.2). - CBC, CMP, Cardiac Profile, EKG, UA, UCx EKbpm, NSR, left axis deviation, QTc 439, no ST changes, no peaked T waves or QRS widening 01/10/20 20:56 - Mild leukocytosis - K 7.2, BUN 144, Cr 4.5 - Calcium Gluconate 1000 mg / 20min - D50, Regular Insulin 10 U - Albuterol Nebs x3 - Lokelma 10mg - Will repeat BMP and EKG following treatment administration 01/10/20 21:55 - S/p 2mg Magnesium - 2nd IV placed by Dr. Conti under US guidance - 1L NS running Dispo: Admission 01/10/20 22:22 - ICU team onboard - Sign-out given to hospitalist DIGITAL CAMPAIGN SPECIALIST - Dr. Blount aware, coming in - Call placed to Vascular Surgery for line placement - Spoke with Patient's sister, Whit, states that she is HCP, patient is Full Code - Patient has not been on HD before, but she and sister agree to it Dispo: ICU, Gustabo Silav 01/10/20 23:03 - S/p calcium gluconate - K 5.3 on repeat - Amiodarone given 150 x 2 Discharge - Discharge Information Problems reviewed: Yes Clinical Impression/Diagnosis: Hyperkalemia, DONIS (acute kidney injury) Condition: Guarded - Admission Yes - Follow up/Referral - Patient Discharge Instructions - Post Discharge Activity
--- NOTE | 2020-01-10 18:43 | PDOC ---
Documentation entered by Sanjana Kilgore SCRIBE, acting as scribe for Anisa Bryant MD. Anisa Bryant MD: This documentation has been prepared by the scribe, Sanjana Kilgore SCRIBE, under my direction and personally reviewed by me in its entirety. I confirm that the documentation accurately reflects all work, treatment, procedures, and medical decision making performed by me. Attending Attestation - Resident Resident Name: Nixon Fountain - ED Attending Attestation I have performed the following: I have examined & evaluated the patient, The case was reviewed & discussed with the resident, I agree w/resident's findings & plan, Exceptions are as noted - HPI HPI: 01/10/20 18:42 69-year-old female [facility]. The patient is a 69-year-old female with a past medical history significant for schizophrenia, COPD, CHF,HTN, CKD, hypothyroidism, cerebral infarct, dysphagia, DM, jejunostomy who presents to the emergency department from [facility] for evaluation for elevated potassium. - Physicial Exam PE: 01/10/20 21:11 GENERAL: Conversant 70 year old female, who can tell you her name. Well-appearing, well-nourished. No apparent distress. HEENT: +pinpoint pupils. Normocephalic, atraumatic. CARDIOVASCULAR: Normal S1, S2. Regular rhythm. CHEST: Port in place to anterior chest. PULMONARY: Clear to auscultation bilaterally. ABDOMEN: +protuberant abdomen, soft. Feeding tube without erythema or drainage from the area. EXTREMITIES: Normal ROM in all four extremities. No gross deformities. SKIN: Warm, dry. No rash NEUROLOGICAL: Alert and oriented x1, Able to raise all extremities, follows simple commands. - Critical Care Time Total Critical Care Time: 90 Critical Care Statement: The care of this patient involved high complexity decision making to prevent further life threatening deterioration of the patient 's condition and/or to evaluate & treat vital organ system(s) failure or risk of failure. - Medical Decision Making 01/10/20 22:08 Bedside bladder ultrasound did not show any appreciable urine in the bladder 01/10/20 22:08 Patient had a witnessed run of V. tach and was given amiodarone 300 mg IV bolus she had a second run an amiodarone infusion was started she was also given magnesium she also had a run of torsades Dr. Hernandez was consulted and came in and saw the pt, He also spoke to the sister, Whit who gave permission for dialysis if it was needed I also witnessed the sister's giving approval for dialysis and any other live saving procedures needed including intubation 01/10/20 23:16 01/10/20 23:22 REPEAT K=5.3 and pt will not need emergent dialysis pt accepted for admission to ICU
[2020-01-10 20:14] LABS: BASO % 0.2 % (0-2.0); EOS % 0.2 % (0-4.5); HEMATOCRIT 40.6 % (32.4-45.2); HEMOGLOBIN 13.2 GM/dL (10.7-15.3); LYMPH % 12.2 % (8-40); MCH 31.7 pg (25.7-33.7); MCHC 32.5 g/dl (32.0-36.0); MEAN CELL VOLUME 97.5 fl (80-96); MEAN PLT VOLUME 7.7 fl (7.5-11.1); MONO % 6.6 % (3.8-10.2); NEUT % 80.8 % (42.8-82.8); PLATELET COUNT 596 K/MM3 (134-434); RBC 4.17 M/mm3 (3.60-5.2); RDW 20.4 % (11.6-15.6); WHITE BLOOD COUNT 12.4 K/mm3 (4.0-10.0)
[2020-01-10 20:49] LABS: ALBUMIN 3.5 g/dl (3.4-5.0); ALK PHOS 250 U/L (45-117); ANION GAP 14 MMOL/L (8-16); BILIRUBIN,TOTAL 0.4 mg/dL (0.2-1); CALCIUM 10.8 mg/dL (8.5-10.1); CHLORIDE 95 mmol/L (98-107); CO2 25 mmol/L (21-32); CREATININE 4.5 mg/dL (0.55-1.3); GLUCOSE,RANDOM 132 mg/dL (74-106); SGOT/AST 19 U/L (15-37); SGPT/ALT 32 U/L (13-61); SODIUM 133 mmol/L (136-145); TOT PROT 9.7 g/dl (6.4-8.2)
[2020-01-10 20:51] LABS: BLOOD UREA NITROGEN 144.3 mg/dL (7-18); POTASSIUM 7.3 mmol/L (3.5-5.1)
[2020-01-10] MEDS ORDERED: INSULIN REGULAR HUMAN 100 UNITS/ML *VIAL IVPUSH ONE (20:53)
[2020-01-10] MEDS ORDERED: ALBUTEROL SO4 0.5 % INH SOLN 2.5 MG/0.5 ML VIAL.NEB. NEB ONE (20:53)
[2020-01-10] MEDS ORDERED: CALCIUM GLUCONATE 10% - 1,000 MG/10 ML VIAL IVPB ONE ×2 (20:54→22:14)
[2020-01-10] MEDS ORDERED: DEXTROSE 50%-WATER - 25 GM/50 ML VIAL IVPUSH ONE (20:54)
[2020-01-10] MEDS ORDERED: SODIUM ZIRCONIUM CYCLOSILICATE (LOKELMA) 5 GM PACKET PO ONE (21:00)
[2020-01-10] MEDS ORDERED: CALCIUM GLUCONATE 10% - 1,000 MG/10 ML VIAL ONE ×2 (21:02→22:52)
[2020-01-10] MEDS ORDERED: DEXTROSE 50%-WATER 25 GM/50 ML DISP.SYRIN ONE (21:02)
[2020-01-10] MEDS ORDERED: ALBUTEROL SO4 0.083% IH SOL 2.5 MG/3 ML VIAL.NEB. NEB ONE (21:02)
[2020-01-10] MEDS ORDERED: INSULIN REGULAR HUMAN 100 UNITS/ML *VIAL ONE (21:02)
[2020-01-10] MEDS ORDERED: AMIODARONE HCL 150 MG/3 ML VIAL IVPUSH ONE (21:26)
[2020-01-10] MEDS ORDERED: AMIODARONE HCL 150 MG/3 ML VIAL ONE (21:34)
[2020-01-10] MEDS ORDERED: AMIODARONE IN DEXTROSE,ISO-OSM 150 MG/100 ML BAG IVPB ONE ×2 (21:40→22:04)
[2020-01-10] MEDS ORDERED: MAGNESIUM SULF 50% (8.12 MEQ/2 ML-1 GM VIAL) IVPB ONE ×2 (21:41→22:12)
[2020-01-10] MEDS ORDERED: MAGNESIUM 1GM/D5W - 2 GM/200 ML IVPB IVPB ONE (21:45)
[2020-01-10] MEDS ORDERED: AMIODARONE IN DEXTROSE,ISO-OSM 360 MG/200 ML BAG ONE (21:45)
[2020-01-10] MEDS ORDERED: MAGNESIUM SULF 50% (8.12 MEQ/2 ML-1 GM VIAL) ONE (21:52)
[2020-01-10] MEDS ORDERED: SODIUM CHLORIDE 1,000 ML IV STA ×2 (21:58→22:50)
--- NOTE | 2020-01-10 22:28 | HP ---
Admitting History and Physical - Primary Care Physician PCP: Rona Tyson - Admission Chief Complaint: Abnormal Lab Value- Hyperkalemia History of Present Illness: This is a 69-year-old woman from [facility] with a past medical history significant for Schizophrenia, COPD, CHF, HTN, DM, CKD, Hypothyroidism, Cerebral Infarct, Dysphagia,s /p jejunostomy. Who presents to the emergency department for evaluation for elevated potassium. Patient is unable to provide HPI due to her clinical condition- non-verbal. In the ED, K- 7.3, patient had 2 episodes of Vtach with Torsades. Patient was given Hyperkalemia Protocol. Repeat K 5.3, Patient was given Amiodarone bolus then started on a Amiodarone Infusion. Renal was consulted for possible emergent dialysis. Patient will be admitted to ICU. 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 Cardiovascular: Yes: CHF, HTN Pulmonary: Yes: COPD Renal/: Yes: Renal Failure Endocrine: Yes: Diabetes Mellitus, Hypothyroidism - Past Surgical History Additional Past Surgical History: Jejunostomy - Advance Directives Advance Directives: Yes: Health Care Proxy - Smoking History Smoking history: Unknown if ever smoked Have you smoked in the past 12 months: No - Alcohol/Substance Use Hx Alcohol Use: No History of Substance Use: reports: None - Social History Usual Living Arrangement: Yes: Longterm ADL: Support Services History of Recent Travel: No Home Medications - Allergies Allergies/Adverse Reactions: Allergies Allergy/AdvReac Type Severity Reaction Status Date / Time lactose Allergy Verified 01/10/20 18:31 levofloxacin Allergy Verified 01/10/20 18:31 lisinopril Allergy Verified 01/10/20 18:31 Phenothiazines Allergy Verified 01/10/20 18:31 sulfamethoxazole Allergy Verified 01/10/20 18:31 [From Bactrim] trimethoprim [From Bactrim] Allergy Verified 01/10/20 18:31 zoysn Allergy Uncoded 01/10/20 18:31 - Home Medications Home Medications: Ambulatory Orders Acetaminophen Oral Solution [Tylenol Oral Solution -] 650 mg GT Q6H PRN Albuterol 2.5/Ipratropium 0.5 [Duoneb -] 1 neb IH QID 01/10/20 Carvedilol [Coreg -] 12.5 mg GT BID 01/10/20 Clopidogrel Bisulfate [Plavix -] 75 mg GT DAILY 01/10/20 Dextran 70/Hypromellose/Pf [Genteal Tears 0.1%-0.3% Drop] 1 each OU TID Fludrocortisone Acetate [Florinef -] 0.1 mg GT ASDIR 01/10/20 Furosemide Oral Solution [Lasix Oral Solution -] 20 mg GT DAILY 01/10/20 Heparin Sodium,Porcine [Heparin Sodium] 5,000 unit IJ Q12H 01/10/20 Hydrocortisone [Cortef -] 10 mg GT DAILY 01/10/20 Insulin Lispro [Humalog] 100 unit SQ TID 01/10/20 Levothyroxine Sodium [Unithroid] 100 mcg GT DAILY 01/10/20 Pantoprazole Suspension [Protonix Packets For Oral Suspension -] 40 mg GT DAILY 01/10/20 Risperidone [Risperdal Oral Soln] 2 mg GT HS 01/10/20 Risperidone [Risperdal Oral Soln] 3 mg GT DAILY 01/10/20 Sennosides [Senna] 10 ml GT DAILY PRN 01/10/20 Family Medical History Family History: Unable to Obtain Review of Systems Unable to obtain ROS, reason: Clinical Condition Physical Examination Vital Signs: Vital Signs Temperature 98.1 F 01/10/20 18:29 Pulse Rate 102 H 01/10/20 20:57 Respiratory Rate 22 H 01/10/20 20:57 Blood Pressure 110/75 01/10/20 20:57 O2 Sat by Pulse Oximetry (%) 94 L 01/10/20 20:57 Constitutional: Yes: No Distress, Calm, Other (non-verbal at baseline) Eyes: Yes: Conjunctiva Clear, PERRL HENT: Yes: WNL, Atraumatic, Normocephalic Neck: Yes: WNL, Supple, Trachea Midline Cardiovascular: Yes: Tachycardia, Pulse Irregular, S1, S2 Respiratory: Yes: Diminished, On Nasal O2 Gastrointestinal: Yes: Normal Bowel Sounds, Other (Jejunostomy mid abd- intact bilious content noted intubing and collection bag) Renal/: Yes: De La Garza Present (cloudy, sediment yellow urine noted in tubing and de la garza bag) Breast(s): Yes: WNL, Left Musculoskeletal: Yes: WNL Extremities: Yes: WNL Edema: No Peripheral Pulses WNL: Yes Labs: CBC, BMP 01/10/20 19:20 Laboratory Tests 01/10/20 01/10/20 01/10/20 19:20 19:20 19:20 WBC 12.4 H RBC 4.17 Hgb 13.2 Hct 40.6 D MCV 97.5 H MCH 31.7 MCHC 32.5 RDW 20.4 H Plt Count 596 H D MPV 7.7 Absolute Neuts (auto) 10.1 H Neutrophils % 80.8 Lymphocytes % 12.2 D Monocytes % 6.6 Eosinophils % 0.2 D Basophils % 0.2 Nucleated RBC % 1 H Puncture Site Patient Temperature ABG pH ABG pCO2 at Pt Temp ABG pO2 at Pt Temp ABG HCO3 ABG O2 Sat (Measured) ABG O2 Content ABG Base Excess Doug Test O2 Delivery Device Oxygen Flow Rate Sodium 133 L Potassium 7.3 H* Chloride 95 L Carbon Dioxide 25 Anion Gap 14 BUN 144.3 H* Creatinine 4.5 H Est GFR (CKD-EPI)AfAm 10.88 Est GFR (CKD-EPI)NonAf 9.39 Random Glucose 132 H Lactic Acid Calcium 10.8 H Total Bilirubin 0.4 AST 19 ALT 32 Alkaline Phosphatase 250 H Creatine Kinase Cancelled 25 L Troponin I Cancelled < 0.02 Total Protein 9.7 H Albumin 3.5 Urine Color Urine Appearance Urine pH Ur Specific [place] Urine Protein Urine Glucose (UA) Urine Ketones Urine Blood Urine Nitrite Urine Bilirubin Urine Urobilinogen Ur Leukocyte Esterase Urine WBC (Auto) Urine RBC (Auto) Urine Casts (Auto) U Epithel Cells (Auto) Urine Bacteria (Auto) Ur Random Creatinine Ur Random Sodium Ur Random Potassium 01/10/20 21:41 WBC RBC Hgb Hct MCV MCH MCHC RDW Plt Count MPV Absolute Neuts (auto) Neutrophils % Lymphocytes % Monocytes % Eosinophils % Basophils % Nucleated RBC % Puncture Site Patient Temperature ABG pH ABG pCO2 at Pt Temp ABG pO2 at Pt Temp ABG HCO3 ABG O2 Sat (Measured) ABG O2 Content ABG Base Excess Doug Test O2 Delivery Device Oxygen Flow Rate Sodium 136 Potassium 5.3 H Chloride 98 Carbon Dioxide 24 Anion Gap 14 BUN 146.7 H* Creatinine 4.7 H Est GFR (CKD-EPI)AfAm 10.32 Est GFR (CKD-EPI)NonAf 8.91 Random Glucose 271 H Lactic Acid Calcium 11.4 H Total Bilirubin AST ALT Alkaline Phosphatase Creatine Kinase Troponin I < 0.02 Total Protein Albumin Urine Color Urine Appearance Urine pH Ur Specific [place] Urine Protein Urine Glucose (UA) Urine Ketones Urine Blood Urine Nitrite Urine Bilirubin Urine Urobilinogen Ur Leukocyte Esterase Urine WBC (Auto) Urine RBC (Auto) Urine Casts (Auto) U Epithel Cells (Auto) Urine Bacteria (Auto) Ur Random Creatinine Ur Random Sodium Ur Random Potassium Intake & Output 01/08/20 01/09/20 01/10/20 01/11/20 23:59 23:59 23:59 23:59 Weight 73.028 kg 65.771 kg Imaging - Results Chest X-ray: Report Reviewed, Image Reviewed EKG: Image Reviewed Problem List - Problems (1) Hyperkalemia Code(s): E87.5 - HYPERKALEMIA (2) Ventricular tachycardia seen on mold changer Code(s): I47.2 - VENTRICULAR TACHYCARDIA (3) Torsades de pointes Code(s): I47.2 - VENTRICULAR TACHYCARDIA (4) Acute renal failure superimposed on chronic kidney disease Code(s): N17.9 - ACUTE KIDNEY FAILURE, UNSPECIFIED; N18.9 - CHRONIC KIDNEY DISEASE, UNSPECIFIED (5) CAD (coronary artery disease) Code(s): I25.10 - ATHSCL HEART DISEASE OF [place] CORONARY ARTERY W/O ANG PCTRS (6) CHF (congestive heart failure) Code(s): I50.9 - HEART FAILURE, UNSPECIFIED (7) Diabetes mellitus Code(s): E11.9 - TYPE 2 DIABETES MELLITUS WITHOUT COMPLICATIONS (8) HTN (hypertension) Code(s): I10 - ESSENTIAL (PRIMARY) HYPERTENSION (9) Hypothyroidism Code(s): E03.9 - HYPOTHYROIDISM, UNSPECIFIED (10) H/O cerebral infarction Code(s): Z86.73 - PRSNL HX OF TIA (TIA), AND CEREB INFRC W/O RESID DEFICITS Assessment/Plan This is a 69-year-old woman from [facility] with a past medical history significant for Schizophrenia, COPD, CHF, HTN, DM, CKD, Hypothyroidism, Cerebral Infarct, Dysphagia, s/p Jejunostomy. Admitted to ICU for Hyperkalemia, Acute on Chronic Renal Failure, Cardiac Dysrhythmia for further evaluation of their emergent condition. Problems: 1. Acute on Chronic CKD 2. Hyperkalemia 3. Dysrhythmias 4. Hypertension 5. Diabetes Mellitus 6. CHF 7. COPD 8. Cerebral Infarct 9. Hypothyroidism 10. Schizophrenia Plan: Admit ICU ARF Likely due to profound dehydration Nephrology aware and is following Urine lytes, osmo, serum osmo, Na spot-pending Renal US-pending UA, Urine Culture-pending Sputum Culture-pending Continue cardiac monitoring K 7.3- Hyperkalemia Protocol initiated in ED, repeat K 5.3 V Tach and Torsades noted on mold changer- likely secondary to Hyperkalemia- Amiodarone bolus and Infusion started in ED Appreciate Cardiology consult Appreciate Nursing Coordinator consult Serial Enzymes neg x2 Echo in am Monitor CBC, BMP, Mg, Phos Check TSH BGMs ISS, when feedings resumed Hold BP meds- currently normotensive Maintain MAP > 65 Continue Duoneb O2 FEN- Replete lytes prn, NPO DVT ppx- SCDs, Heparin SQ Code Status- Full Code, HCP- sister Keys ([phone]) Dispo: Requires Inpatient Care Visit type - Emergency Visit Emergency Visit: Yes ED Registration Date: 01/10/20 Care time: The patient presented to the Emergency Department on the above date and was hospitalized for further evaluation of their emergent condition. - New Patient This patient is new to me today: Yes Date on this admission: 01/10/20 - Critical Care Critical Care patient: Yes Total Critical Care Time (in minutes): 35 Critical Care Statement: The care of this patient involved high complexity decision making to prevent further life threatening deterioration of the patient 's condition and/or to evaluate & treat vital organ system(s) failure or risk of failure.
[2020-01-10 22:33] LABS: ANION GAP 14 MMOL/L (8-16); CALCIUM 11.4 mg/dL (8.5-10.1); CHLORIDE 98 mmol/L (98-107); CO2 24 mmol/L (21-32); CREATININE 4.7 mg/dL (0.55-1.3); GLUCOSE,RANDOM 271 mg/dL (74-106); POTASSIUM 5.3 mmol/L (3.5-5.1); SODIUM 136 mmol/L (136-145)
--- NOTE | 2020-01-10 22:37 | CONSULT ---
Consultation: REQUESTING PROVIDER: Dr. Bryant CONSULT REQUEST: ICU management. HISTORY OF PRESENT ILLNESS: 69 y/o female with PMH of CHF, schizophrenia, DM, CKD stage 3, hypothyroidism, GERD, previous cerebral infarct presents to the ED from [facility] with elevated potassium - patient had a potassium of 6.3 in the fpc with an elevated Cr. upon arrival to the ED - patient had a potassium of 7.3, BUN 144 Cr. 4.5 patient also had multiple runs of torsades de pointes- EKG showed no peaked T waves; no ST or T wave abnormalities; patient received a total of 4 mg magnesium sulfate , 1 gram calcium gluconate, (x2) lokelma x1, 2L of normal saline, started on an amiodarone drip repeat BMP shows K 5.3, Na 136, REVIEW OF SYSTEMS: unable to fully obtain as patient is altered though she denies pain CONSTITUTIONAL: Absent: fever, chills, diaphoresis, generalized weakness, malaise, loss of appetite, weight change HEENT: Absent: rhinorrhea, nasal congestion, throat pain, throat swelling, difficulty swallowing, mouth swelling, ear pain, eye pain, visual changes CARDIOVASCULAR: Absent: chest pain, syncope, palpitations, irregular heart rate, lightheadedness, peripheral edema RESPIRATORY: Absent: cough, shortness of breath, dyspnea with exertion, orthopnea, wheezing, stridor, hemoptysis GASTROINTESTINAL: Absent: abdominal pain, abdominal distension, nausea, vomiting, diarrhea, constipation, melena, hematochezia GENITOURINARY: Absent: dysuria, frequency, urgency, hesitancy, hematuria, flank pain, genital pain MUSCULOSKELETAL: Absent: myalgia, arthralgia, joint swelling, back pain, neck pain SKIN: Absent: rash, itching, pallor HEMATOLOGIC/IMMUNOLOGIC: Absent: easy bleeding, easy bruising, lymphadenopathy, frequent infections ENDOCRINE: Absent: unexplained weight gain, unexplained weight loss, heat intolerance, cold intolerance NEUROLOGIC: Absent: headache, focal weakness or paresthesias, dizziness, unsteady gait, seizure, mental status changes, bladder or bowel incontinence PSYCHIATRIC: Absent: anxiety, depression, suicidal or homicidal ideation, hallucinations. PHYSICAL EXAMINATION Vital Signs - 24 hr 01/10/20 01/10/20 01/10/20 18:29 18:45 20:57 Temperature 98.1 F Pulse Rate 96 H Pulse Rate [ 102 H Radial] Respiratory 20 22 H Rate Blood Pressure 95/69 Blood Pressure 110/75 [Left Arm] O2 Sat by Pulse 98 96 94 L Oximetry (%) GENERAL: Awake, alert, oriented to self; NAD EYES: PEERLA; EOMI; no scleral icterus NECK:no JVD; no lymphadenopathy. LUNGS: CTA B/L; no rales, rhonchi or wheezing HEART: Regular rate and rhythm, normal S1 and S2 without murmur, rub or gallop. ABDOMEN: Soft, NT/ND +BS in all 4 quadrants ; J tube in place no erythema surrounding the area MUSCULOSKELETAL: Normal range of motion at all joints. No bony deformities or tenderness. No CVA tenderness. EXTREMITIES: warm; well-perfused no clubbing/cyanosis or edema NEUROLOGICAL: unable to assess due to patients mental status . PSYCHIATRIC: Cooperative. Good eye contact. Appropriate mood and affect. SKIN: Warm, dry, normal turgor, no rashes or lesions noted. Laboratory Results - last 24 hr 01/10/20 01/10/20 01/10/20 19:20 19:20 19:20 WBC 12.4 H RBC 4.17 Hgb 13.2 Hct 40.6 D MCV 97.5 H MCH 31.7 MCHC 32.5 RDW 20.4 H Plt Count 596 H D MPV 7.7 Absolute Neuts (auto) 10.1 H Neutrophils % 80.8 Lymphocytes % 12.2 D Monocytes % 6.6 Eosinophils % 0.2 D Basophils % 0.2 Nucleated RBC % 1 H Sodium 133 L Potassium 7.3 H* Chloride 95 L Carbon Dioxide 25 Anion Gap 14 BUN 144.3 H* Creatinine 4.5 H Est GFR (CKD-EPI)AfAm 10.88 Est GFR (CKD-EPI)NonAf 9.39 Random Glucose 132 H Calcium 10.8 H Total Bilirubin 0.4 AST 19 ALT 32 Alkaline Phosphatase 250 H Creatine Kinase Cancelled 25 L Troponin I Cancelled < 0.02 Total Protein 9.7 H Albumin 3.5 01/10/20 21:41 WBC RBC Hgb Hct MCV MCH MCHC RDW Plt Count MPV Absolute Neuts (auto) Neutrophils % Lymphocytes % Monocytes % Eosinophils % Basophils % Nucleated RBC % Sodium 136 Potassium 5.3 H Chloride 98 Carbon Dioxide 24 Anion Gap 14 BUN Creatinine 4.7 H Est GFR (CKD-EPI)AfAm 10.32 Est GFR (CKD-EPI)NonAf 8.91 Random Glucose 271 H Calcium 11.4 H Total Bilirubin AST ALT Alkaline Phosphatase Creatine Kinase Troponin I < 0.02 Total Protein Albumin Active Medications Generic Name Dose Route Start Last Admin Trade Name Kate PRN Reason Stop Dose Admin Chlorhexidine Gluconate 1 applic 01/11/20 22:00 Hibiclens For Decolonization - TP HS ISELA Heparin Sodium (Porcine) 5,000 unit 01/11/20 10:00 Heparin - SQ BID ISELA Sodium Chloride 1,000 mls @ 1,000 mls/hr 01/10/20 21:58 Normal Saline - IV 01/10/20 22:57 ASDIR STA Mupirocin 1 applic 01/11/20 10:00 Bactroban Ointment (For Decolonization) - NS 01/16/20 09:59 BID ISELA ASSESSMENT/PLAN: 69 y/o female with PMH of CHF, schizophrenia, DM, CKD stage 3, hypothyroidism, GERD, previous cerebral infarct presents to the ED from [facility] with elevated potassium and change in mental status #Neuro patient is currenty AOX1 -baseline mental status unclear; willl call family for info regarding baseline -previous infarct; #Cardio history of CHF, HTN, CAD -underwent a few episodes of torsades; received 4 gram mag started on amiodarone gtt -cardio consulted -echo ordered -monitor hemodynamics -will hold antihypertensives in light of slight hypotension -holding risperidone in light of episodes of torsades -repeat EKG in AM #Endo DM history -ISS -BGMS ACHS #GI GERD history patient has G tube -will c/w feeds #Pulm stable; no issues maintain O2 >90 #Psych history of schizophrenia -holding risperidone in light of torsades episodess #Renal CKD history -k7.3-->5.3; Cr 4.7 -received lokelma x1, calcium gluconate x2, 2l of NS -Dr eduardo consulted; no need for emergent HD as K improved -monitor urine output; I's and O's -repeat BMP in AM -after 2nd liter of NS will start IVF ns@125mls/hr -renal/bladder US ordered F/E/N NS@125mls/hr monitor electrolytes-repeat BMP in AM G tube feeds code status: full code- sister Whit is HCP Dispo: We will continue to follow the patient. Thank you for this consultative opportunity. Problem List - Problems (1) DONIS (acute kidney injury) Code(s): N17.9 - ACUTE KIDNEY FAILURE, UNSPECIFIED (2) Hyperkalemia Code(s): E87.5 - HYPERKALEMIA (3) CAD (coronary artery disease) Code(s): I25.10 - ATHSCL HEART DISEASE OF [place] CORONARY ARTERY W/O ANG PCTRS (4) CHF (congestive heart failure) Code(s): I50.9 - HEART FAILURE, UNSPECIFIED (5) Jejunostomy malfunction Code(s): K94.13 - ENTEROSTOMY MALFUNCTION Visit type - Emergency Visit Emergency Visit: Yes Care time: The patient presented to the Emergency Department on the above date and was hospitalized for further evaluation of their emergent condition. - New Patient This patient is new to me today: Yes Date on this admission: 01/10/20 - Critical Care Critical Care patient: Yes Total Critical Care Time (in minutes): 35 Critical Care Statement: The care of this patient involved high complexity dec ision making to prevent further life threatening deterioration of the patient's condition and/or to evaluate & treat vital organ system(s) failure or risk of failure. ATTENDING PHYSICIAN STATEMENT I saw and evaluated the patient. I reviewed the resident's note and discussed the case with the resident. I agree with the resident's findings and plan as documented. SUBJECTIVE: OBJECTIVE: ASSESSMENT AND PLAN:
[2020-01-10] MEDS ORDERED: AMIODARONE IN DEXTROSE,ISO-OSM 360 MG/200 ML BAG IVPB ONE (22:56)
[2020-01-10 23:04] LABS: BLOOD UREA NITROGEN 146.7 mg/dL (7-18)
--- NOTE | 2020-01-10 23:05 | CONSULT ---
Consult Consult Specialty:: Nephrology Reason for Consultation:: DONIS and hyperkalemia - History of Present Illness Chief Complaint: sent in for hyperkalemia History of Present Illness: Pt is a 69 year old female with pmhx of schizophrenia, copd, chf, htn, ckd, hypothyroidisn, cva, dm, and j-tube who presents with hyperkalemia and renal failure. [place] to give history. She says that she is thirsty. She denies shortness of breath. Her renal function has worsened since her last hospitalization. She has a de la garza. I was called as a stat consult. Her potassium was treated medically in the ER. Her repeat potassium improved. 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 Cardio/Vascular: Yes: HTN - Alcohol/Substance Use Hx Alcohol Use: No - Smoking History Smoking history: Unknown if ever smoked Have you smoked in the past 12 months: No Home Medications - Allergies Allergies/Adverse Reactions: Allergies Allergy/AdvReac Type Severity Reaction Status Date / Time lactose Allergy Verified 01/10/20 18:31 levofloxacin Allergy Verified 01/10/20 18:31 lisinopril Allergy Verified 01/10/20 18:31 Phenothiazines Allergy Verified 01/10/20 18:31 sulfamethoxazole Allergy Verified 01/10/20 18:31 [From Bactrim] trimethoprim [From Bactrim] Allergy Verified 01/10/20 18:31 zoysn Allergy Uncoded 01/10/20 18:31 - Home Medications Home Medications: Ambulatory Orders Acetaminophen Oral Solution [Tylenol Oral Solution -] 650 mg GT Q6H PRN Albuterol 2.5/Ipratropium 0.5 [Duoneb -] 1 neb IH QID 01/10/20 Carvedilol [Coreg -] 12.5 mg GT BID 01/10/20 Clopidogrel Bisulfate [Plavix -] 75 mg GT DAILY 01/10/20 Dextran 70/Hypromellose/Pf [Genteal Tears 0.1%-0.3% Drop] 1 each OU TID Fludrocortisone Acetate [Florinef -] 0.1 mg GT ASDIR 01/10/20 Furosemide Oral Solution [Lasix Oral Solution -] 20 mg GT DAILY 01/10/20 Heparin Sodium,Porcine [Heparin Sodium] 5,000 unit IJ Q12H 01/10/20 Hydrocortisone [Cortef -] 10 mg GT DAILY 01/10/20 Insulin Lispro [Humalog] 100 unit SQ TID 01/10/20 Levothyroxine Sodium [Unithroid] 100 mcg GT DAILY 01/10/20 Pantoprazole Suspension [Protonix Packets For Oral Suspension -] 40 mg GT DAILY 01/10/20 Risperidone [Risperdal Oral Soln] 2 mg GT HS 01/10/20 Risperidone [Risperdal Oral Soln] 3 mg GT DAILY 01/10/20 Sennosides [Senna] 10 ml GT DAILY PRN 01/10/20 Family Medical History Family History: Denies Review of Systems Unable to obtain ROS, reason: poor historian - Review of Systems Constitutional: reports: Malaise Eyes: reports: No Symptoms HENT: reports: No Symptoms Neck: reports: No Symptoms Cardiovascular: reports: No Symptoms Genitourinary: reports: Other (de la garza) Musculoskeletal: reports: Muscle Weakness Endocrine: reports: No Symptoms Hematology/Lymphatic: reports: No Symptoms Psychiatric: reports: No Symptoms Physical Exam Vital Signs: Vital Signs Temperature 98.1 F 01/10/20 18:29 Pulse Rate 102 H 01/10/20 20:57 Respiratory Rate 22 H 01/10/20 20:57 Blood Pressure 110/75 01/10/20 20:57 O2 Sat by Pulse Oximetry (%) 94 L 01/10/20 20:57 Constitutional: Yes: Calm Eyes: Yes: Conjunctiva Clear HENT: Yes: Atraumatic, Other (dry mucous [place]braines) Cardiovascular: Yes: S1, S2 Respiratory: Yes: CTA Bilaterally, On Nasal O2 Gastrointestinal: Yes: Soft Renal/: Yes: De La Garza Present Musculoskeletal: Yes: Muscle Weakness Edema: No Neurological: Yes: Confusion Labs: CBC, BMP 01/10/20 19:20 01/10/20 21:41 Imaging - Results Chest X-ray: Report Reviewed Problem List - Problems (1) DONIS (acute kidney injury) Code(s): N17.9 - ACUTE KIDNEY FAILURE, UNSPECIFIED (2) Hyperkalemia Code(s): E87.5 - HYPERKALEMIA (3) CAD (coronary artery disease) Code(s): I25.10 - ATHSCL HEART DISEASE OF [place] CORONARY ARTERY W/O ANG PCTRS (4) CHF (congestive heart failure) Code(s): I50.9 - HEART FAILURE, UNSPECIFIED Assessment/Plan Current Medications Generic Name Dose Route Start Last Admin Trade Name Freq PRN Reason Stop Dose Admin Chlorhexidine Gluconate 1 applic 01/11/20 22:00 Hibiclens For Decolonization - TP HS ISELA Chlorhexidine Gluconate 1 applic 01/11/20 22:00 Hibiclens For Decolonization - TP HS ISELA Heparin Sodium (Porcine) 5,000 unit 01/11/20 10:00 Heparin - SQ BID ISELA Sodium Chloride 1,000 mls @ 1,000 mls/hr 01/10/20 22:50 Normal Saline - IV 01/10/20 23:49 ASDIR STA Amiodarone HCl/Dextrose 360 mg in 200 mls @ 33.333 mls/hr 01/10/20 22:56 Nexterone 360 Mg/200 Ml Bag IVPB 01/11/20 04:55 ONCE ONE Protocol 1 MG/MIN Mupirocin 1 applic 01/11/20 10:00 Bactroban Ointment (For Decolonization) - NS 01/16/20 09:59 BID ISELA Mupirocin 1 applic 01/11/20 10:00 Bactroban Ointment (For Decolonization) - NS 01/16/20 09:59 BID ISELA Laboratory Tests 01/10/20 01/10/20 01/10/20 19:20 19:20 21:41 WBC 12.4 H Hgb 13.2 Plt Count 596 H D Sodium 133 L 136 Potassium 7.3 H* 5.3 H BUN 144.3 H* Pending Creatinine 4.5 H 4.7 H Calcium 10.8 H 11.4 H Impression 1. DONIS 2. hyperkalemia 3. hypercalcemia 4. hx cva 5. hx htn 6. dm Plan - potassium is improved - pt is starting to make urine - potassium treated medically - called and spoke to her sister [phone] (Sheba Abdi) - admit to ICU - discussed with ER and ICU team - pt appears very dehydrated - will need hypercalcemia workup if not improved by am - keep on tele - cardio eval - will evaluate again for HD tomorrow - check ua, drill punch operator and lytes to calc fena - check u/s kidneys and bladder
[2020-01-10 23:50] LABS: EPI CELLS 0.8 /HPF (0-5/HPF); HYALINE CASTS 8 /lpf (0-8); URINE APPEARANCE CLOUDY; URINE BACTERIA 95.5 /hpf (NEGATIVE); URINE BILIRUBIN NEGATIVE (NEGATIVE); URINE COLOR YELLOW; URINE GLUCOSE (UA) NEGATIVE (NEGATIVE); URINE KETONE TRACE (NEGATIVE); URINE LEUK ESTERASE 3+ (NEGATIVE); URINE NITRITE NEGATIVE (NEGATIVE); URINE PROTEIN TRACE (NEGATIVE); URINE UROBILINOGEN 0.2 mg/dL (0.2-1.0); URINE WBC 112 /hpf (0-5)
[2020-01-11] MEDS: SODIUM CHLORIDE 1,000 ML IV SCH ×2 (00:30→23:54)
[2020-01-11 01:40] LABS: URINE RBC 5.9 /hpf (0-4)
[2020-01-11] MEDS ORDERED: VASOPRESSIN 20 UNITS/ML VIAL IV ONE (03:17)
[2020-01-11] MEDS ORDERED: PIPERACILLIN/TAZOBACTAM 3.375 GM VIAL IVPB ONE (03:25)
[2020-01-11] MEDS ORDERED: DEXTROSE 5%-WATER - 50 ML IVPB ONE (03:25)
[2020-01-11] MEDS: PIPERACILLIN/TAZOB 3.375 GM 3.375 GM in DEXTROSE 5%-WATER - 50 ML IVPB ONE ×2 (03:29→03:46)
[2020-01-11] MEDS: VASOPRESSIN 50 UNITS in SODIUM CHLORIDE 97.5 ML IVPB SCH (03:30)
[2020-01-11 03:32] LABS: EPI CELLS 11.8 /HPF (0-5/HPF); HYALINE CASTS 19 /lpf (0-8); URINE APPEARANCE CLOUDY; URINE BACTERIA 97.4 /hpf (NEGATIVE); URINE BILIRUBIN NEGATIVE (NEGATIVE); URINE COLOR YELLOW; URINE GLUCOSE (UA) NEGATIVE (NEGATIVE); URINE KETONE NEGATIVE (NEGATIVE); URINE LEUK ESTERASE 2+ (NEGATIVE); URINE NITRITE NEGATIVE (NEGATIVE); URINE PROTEIN NEGATIVE (NEGATIVE); URINE RBC 2 /hpf (0-4); URINE UROBILINOGEN 0.2 mg/dL (0.2-1.0); URINE WBC 14 /hpf (0-5)
[2020-01-11 03:36] LABS: ARTERIAL BLD GAS O2 SATURATION 98.1 % (95-98); ARTERIAL BLOOD GAS PCO2 43.4 mmHg (35-45); ARTERIAL BLOOD GAS PO2 121 mmHg (80-100); ARTERIAL BLOOD GAS pH 7.28 (7.35-7.45)
[2020-01-11 03:37] LABS: ALLENS TEST POSITIVE
[2020-01-11] MEDS ORDERED: PORTA CATH FLUSH 10 ML IVPUSH PRN (04:01)
[2020-01-11] MEDS ORDERED: RAPID SEQUENCE INTUBATION KIT NR ONE (04:43)
[2020-01-11] MEDS: AMIODARONE IN DEXTROSE,ISO-OSM 360 MG/200 ML BAG IVPB SCH ×2 (05:00→16:08)
--- NOTE | 2020-01-11 05:45 | PN ---
Progress Note (short form) - Note Progress Note: Central Line Placement Note Called to ICU to assist in placement of central line for the patient admitted with hyperkalemia and currently presenting with a sepsis like presentation. Patient was on vasopressors and was somnolent. The patient left neck was prepped and draped in sterile fashion, ultrasound guidance was used to identify the Left internal jugular, an 18g needle with angiocath was used to cannulate the left IJ, venous placement was confirmed using pressure transduction and color, guide wire was inserted taking care to no force through any resistance. A triple lumen catheter was inserted over the guide wire after a stiff dilator was used. Blood flow was confirmed through each lumen and caps were placed on the ends. A biopatch was applied and the TLC was sutured to the skin. The area was then cleaned again with chloroprep and a bioocclusive dressing was placed. A chest x ray was performed to confirm placement.
--- NOTE | 2020-01-11 05:50 | PN ---
Progress Note (short form) - Note Progress Note: Intubation Note Called back to patient's room soon after placement of central line because the patient was no unresponsive and had an episode of vtach with pulse. The patient was currently in sinus rhythm but still unresponsive. A 7.5 ETT was prepared, the patient was pre oxygenated, 50mg rocuronium was given and direct laryngoscopy was performed with a mac 3 blade with good view of the vocal cords. The ETT could not advance past 2cm distal to the vocal cords. A 7.0 tube was attempted with similar results. The patient became hypertensive at this point and 4mg etomidate was given. A 6.5 tube was passed with minimal difficulty and placement was confirmed with the tube at 21cm at the lip. Care was returned to the ICU team.
[2020-01-11 06:11] LABS: BASO % 0.1 % (0-2.0); EOS % 0.4 % (0-4.5); HEMATOCRIT 26.1 % (32.4-45.2); HEMOGLOBIN 8.4 GM/dL (10.7-15.3); LYMPH % 13.8 % (8-40); MCH 31.4 pg (25.7-33.7); MCHC 32.2 g/dl (32.0-36.0); MEAN CELL VOLUME 97.5 fl (80-96); MONO % 7.6 % (3.8-10.2); NEUT % 78.1 % (42.8-82.8); PLATELET COUNT 412 K/MM3 (134-434); RBC 2.68 M/mm3 (3.60-5.2); RDW 20.1 % (11.6-15.6); WHITE BLOOD COUNT 12.8 K/mm3 (4.0-10.0)
[2020-01-11] MEDS ORDERED: ETOMIDATE 20 MG/10 ML AMPUL IVPUSH ONE (06:14)
[2020-01-11] MEDS ORDERED: ROCURONIUM BROMIDE 50 MG/5 ML VIAL IV ONE (06:14)
[2020-01-11 06:24] LABS: ARTERIAL BLD GAS O2 SATURATION 99.8 % (95-98); ARTERIAL BLOOD GAS BASE EXCESS -5.6 meq/l (-2-2); ARTERIAL BLOOD GAS PCO2 40.3 mmHg (35-45); ARTERIAL BLOOD GAS PO2 391 mmHg (80-100); ARTERIAL BLOOD GAS pH 7.31 (7.35-7.45)
[2020-01-11 06:28] LABS: ALLENS TEST POSITIVE
[2020-01-11] MEDS ORDERED: CEFEPIME 2 GM in DEXTROSE 5%-WATER 100 ML IVPB ONE (06:45)
[2020-01-11 07:09] LABS: ALBUMIN 2.2 g/dl (3.4-5.0); BILIRUBIN,TOTAL 0.3 mg/dL (0.2-1); CALCIUM 9.2 mg/dL (8.5-10.1); CREATININE 3.7 mg/dL (0.55-1.3); PHOSPHOROUS 6.8 mg/dL (2.5-4.9); TOT PROT 6.3 g/dl (6.4-8.2)
[2020-01-11 07:39] LABS: BLOOD UREA NITROGEN 121.2 mg/dL (7-18)
[2020-01-11] MEDS ORDERED: MIDAZOLAM IN 0.9 % SOD.CHLORID 1 MG/1 ML PLAST..BAG ONE (07:44)
[2020-01-11] MEDS ORDERED: MIDAZOLAM 100 MG in SODIUM CHLORIDE 100 ML IVPB SCH (07:45)
[2020-01-11] MEDS ORDERED: PT OWN MED DRAWER 7, Y5N ONE ×3 (08:41→16:50)
--- NOTE | 2020-01-11 08:55 | PN ---
Physical Exam: SUBJECTIVE: Patient seen and examined. Pt was obtunded overnight and is now sedated and intubated, central line in place. Making urine (475cc in de la garza overnight). OBJECTIVE: Vital Signs Period Temp Pulse Resp BP Sys/Schaeffer Pulse Ox Last 24 Hr 94.3 F-98.7 F 60-102 10-22 80-142/47-78 93-100 GENERAL: The sedated and intubated. HEAD: Normal with no signs of trauma. EYES: PERRL, sclera anicteric, conjunctiva clear. No ptosis. ENT: Ears normal, nares patent, oropharynx clear without exudates, moist mucous membranes. ETT in place. NECK: Trachea midline, full range of motion, supple. LIJ in place with mild erythema. LUNGS: Breath sounds equal, clear to auscultation bilaterally, no wheezes, no crackles, no accessory muscle use. HEART: Regular rate and rhythm, S1, S2 without murmur, rub or gallop. ABDOMEN: Soft, nontender, nondistended, normoactive bowel sounds, no guarding, no rebound, no hepatosplenomegaly, no masses. J tube in place with no surrounding erythema. EXTREMITIES: 2+ pulses, warm, well-perfused, no edema. NEUROLOGICAL: Sedated. SKIN: Warm, dry, normal turgor, no rashes or lesions noted Laboratory Results - last 24 hr CBC, BMP 01/11/20 05:30 01/11/20 05:30 Active Medications Chlorhexidine Gluconate (Hibiclens For Decolonization -) 1 applic TP HS ISELA Heparin Sodium (Porcine) (Heparin -) 5,000 unit SQ BID ISELA IV Flush (Joseph-Cath Flush) 10 ml IVPUSH PRN PRN PRN Reason: FLUSH Sodium Chloride (Normal Saline -) 1,000 mls @ 125 mls/hr IV ASDIR ISELA Last Admin: 01/11/20 00:30 Dose: 125 mls/hr Vasopressin 50 units/ Sodium (Chloride) 100 mls @ 4 mls/hr IVPB ASDIR ISELA; Protocol Last Titration: 01/11/20 05:02 Dose: 2 units/hr, 4 mls/hr Amiodarone HCl/Dextrose (Nexterone 360 Mg/200 Ml Bag) 360 mg in 200 mls @ 16.667 mls/hr IVPB ASDIR ISELA; Protocol Last Admin: 01/11/20 05:00 Dose: 16.667 mls/hr Midazolam HCl 100 mg/ Sodium (Chloride) 100 mls @ 1 mls/hr IVPB TITR ISELA; Protocol Last Admin: 01/11/20 07:58 Dose: 1 mg/hr, 1 mls/hr Insulin Aspart (Novolog Vial Sliding Scale -) 1 vial SQ TIDAC [facility]; Protocol Mupirocin (Bactroban Ointment (For Decolonization) -) 1 applic NS BID ISELA Stop: 01/16/20 09:59 ASSESSMENT/PLAN: Patient is a 69 year old female with PMH of CHF, schizophrenia, DM, CKD stage 3, hypothyroidism, GERD, previous cerebral infarct presents to the ED from formerly [facility] with elevated potassium and change in mental status. Neuro -Intubated and sedated -Hx of schizophrenia and previous cerebral infarct -Baseline mental status is unclear -Hold risperidone in light of torsades Cardiovascular -Hx of CHF, HTN, CAD -Underwent Vtach and few episodes of torsades, received 4gm Mg and started on amiodarone gtt -Echo (01/11): LVEF: 35%, severe global hypokinesis of LV, trace MR and TR, mild aortic valve thickening -Pt on vasopressin 2units 4ml/hr -Monitor CVP reading Q6H, will switch vaso-->levophed if needed -Cont amiodarone gtt -IVF NS @ 125ml/hr to keep CVP 8-12 -Hold antihypertensive medications in light of hypotension -Hold amiodarone in light of episodes of torsades -Cont tele monitoring -CVP reading Q6H and -Cardio consulted (Dr. Broussard) Contact pt's wringer operator Dr. Saab. Pacemaker has [employer] pacemaker, last interrogated in Jul 2019 and was unremarkable. Pulmonary -Acute respiratory failure -Intubated overnight -CXR: new infiltrate and atelectasis in BL upper lobes -Cont IV abx empirically -ABG: pO2 391, will decrease oxygen setting -Maintain O2 >90 Renal -Hx of CKD -Hyperkalemia 7.3-->5.0 s/p lokelma x1, calcium gluconate x2, 2L NS -Cr: 4.7-->3.7 -Nephro following (Dr. Blount): no need for emergent HD at this time, will cont to assess daily -Monitor urine output and strict I's & O's (475cc from catheter overnight) -Cont IV NS @ 125ml/hr -F/u renal/bladder US ID -Septic shock likely 2/2 PNA vs UTI -Cont IV cefepime 1gm BID and vanc 1gm -ID following (Dr. Cummings) -F/u blood, urine, and sputum cx GI -Hx of GERD -Pt has J tube in place, monitor output (500cc gastric drainage overnight) -Will cont with tube feeds when stable Endo -Hx of TIIDM -ISS and BGM TIDAC Heme -Hgb: 13.2 --> 8.4 -F/u haptoglobin and LDH to assess if pt is hemolyzing Psych -Hx of schizophrenia -Holding risperidone in light of torsades episodes DVT ppx -Heparin SQ FEN -IV NS @ 125ml/hr -Monitor for hyperkalemia and DONIS -NPO Dispo: -Will continue to monitor in ICU -Full code, sister is HCP Visit type - Emergency Visit Emergency Visit: No - New Patient This patient is new to me today: Yes Date on this admission: 01/11/20 - Critical Care Critical Care patient: Yes Total Critical Care Time (in minutes): 45 Critical Care Statement: The care of this patient involved high complexity decision making to prevent further life threatening deterioration of the patient's condition and/or to evaluate & treat vital organ system(s) failure or risk of failure. ATTENDING PHYSICIAN STATEMENT I saw and evaluated the patient. I reviewed the resident's note and discussed the case with the resident. I agree with the resident's findings and plan as documented. SUBJECTIVE: OBJECTIVE: ASSESSMENT AND PLAN:
--- NOTE | 2020-01-11 09:17 | EKG ---
Test Reason : Blood Pressure : / mmHG Vent. Rate : 095 BPM Atrial Rate : 095 BPM P-R Int : 154 ms QRS Dur : 102 ms QT Int : 350 ms P-R-T Axes : 064 -33 087 degrees QTc Int : 439 ms NORMAL SINUS RHYTHM LEFT AXIS DEVIATION MINIMAL VOLTAGE CRITERIA FOR LVH, MAY BE NORMAL VARIANT ABNORMAL ECG Confirmed by Rom Scott MD ([id number]) on 01/11/2020 9:17:36 AM Referred By: Confirmed By:Rom Scott MD
[2020-01-11] MEDS ORDERED: MUPIROCIN 2% TOPICAL OINTMENT FOR DECOLONIZATION NS SCH (10:00)
--- NOTE | 2020-01-11 10:37 | PN ---
Progress Note (short form) - Note Progress Note: ID CONSULT DICTATED HYPERKALEMIA S/P TORSADES RESP FAILURE HYPOTENSION R/O SEPTIC SHOCK UTI R/O SEPIS SECONDARY TO UTI LEUKOCYTOSIS ACUTE ON CHRONIC RENAL FAILURE ANTIBIOTIC ALLERGIES AWAIT SEPSIS W/U EMPIRIC CEFEPIME/ VANCOMYCIN ADJUSTED FOR RENAL FAILURE VENTILATORY/ HEMODYNAMIC SUPPORT CRITICAL CARE TIME 35 MIN
--- NOTE | 2020-01-11 10:37 | PN ---
Progress Note (short form) - Note Progress Note: Pt examined in ICU was recently admitted here last week for malfunction J tube and sent back after IR procedure Sedated Intubated s/p v tach and torsades in ER Vital Signs - 24 hr 01/10/20 01/10/20 01/10/20 18:29 18:45 20:57 Temperature 98.1 F Pulse Rate 96 H Pulse Rate [ 102 H Radial] Respiratory 20 22 H Rate Blood Pressure 95/69 Blood Pressure 110/75 [Left Arm] O2 Sat by Pulse 98 96 94 L Oximetry (%) 01/10/20 01/11/20 01/11/20 23:52 00:20 00:30 Temperature 94.3 F L Pulse Rate 75 Pulse Rate [ 75 Radial] Respiratory 17 19 Rate Blood Pressure 115/69 Blood Pressure 123/69 [Left Arm] O2 Sat by Pulse 98 100 Oximetry (%) 01/11/20 01/11/20 01/11/20 01:30 01:50 02:00 Temperature 94.5 F L 94.5 F L Pulse Rate 76 75 Pulse Rate [ Radial] Respiratory 17 10 Rate Blood Pressure 98/59 L 92/52 L Blood Pressure [Left Arm] O2 Sat by Pulse 98 100 93 L Oximetry (%) 01/11/20 01/11/20 01/11/20 02:15 02:20 02:30 Temperature 94.6 F L 94.7 F L 98.4 F Pulse Rate 75 75 75 Pulse Rate [ Radial] Respiratory 14 10 10 Rate Blood Pressure 90/51 L 85/56 L 93/53 L Blood Pressure [Left Arm] O2 Sat by Pulse 98 99 Oximetry (%) 01/11/20 01/11/20 01/11/20 03:00 03:10 03:30 Temperature 95.1 F L 95.1 F L 95.3 F L Pulse Rate 75 75 75 Pulse Rate [ Radial] Respiratory 14 14 14 Rate Blood Pressure 91/55 L 89/51 L 80/51 L Blood Pressure [Left Arm] O2 Sat by Pulse 98 Oximetry (%) 01/11/20 01/11/20 01/11/20 03:34 04:00 04:07 Temperature 98.7 F 95.8 F L Pulse Rate 75 75 75 Pulse Rate [ Radial] Respiratory 16 14 Rate Blood Pressure 84/47 L 116/66 116/66 Blood Pressure [Left Arm] O2 Sat by Pulse Oximetry (%) 01/11/20 01/11/20 01/11/20 04:20 04:30 04:50 Temperature 95.9 F L 95.9 F L 96.1 F L Pulse Rate 82 75 60 Pulse Rate [ Radial] Respiratory 17 18 20 Rate Blood Pressure 110/63 114/62 123/74 Blood Pressure [Left Arm] O2 Sat by Pulse Oximetry (%) 01/11/20 01/11/20 01/11/20 05:00 05:20 05:30 Temperature 96.1 F L 96.3 F L 96.3 F L Pulse Rate 75 75 75 Pulse Rate [ Radial] Respiratory 22 H 14 14 Rate Blood Pressure 142/73 123/78 121/75 Blood Pressure [Left Arm] O2 Sat by Pulse Oximetry (%) 01/11/20 01/11/20 01/11/20 06:00 06:30 07:00 Temperature 96.3 F L 96.5 F L 97.0 F L Pulse Rate 75 75 75 Pulse Rate [ Radial] Respiratory 14 14 18 Rate Blood Pressure 113/68 112/65 103/65 Blood Pressure [Left Arm] O2 Sat by Pulse Oximetry (%) 01/11/20 01/11/20 01/11/20 07:34 08:26 09:00 Temperature 97.5 F L Pulse Rate 75 Pulse Rate [ Radial] Respiratory 16 14 14 Rate Blood Pressure 104/66 Blood Pressure [Left Arm] O2 Sat by Pulse 100 100 Oximetry (%) Current Medications Generic Name Dose Route Start Last Admin Trade Name Freq PRN Reason Stop Dose Admin Chlorhexidine Gluconate 1 applic 01/11/20 22:00 Hibiclens For Decolonization - TP HS ISELA Heparin Sodium (Porcine) 5,000 unit 01/11/20 10:00 Heparin - SQ BID ISELA IV Flush 10 ml 01/11/20 04:01 Joseph-Cath Flush IVPUSH PRN PRN FLUSH Sodium Chloride 1,000 mls @ 125 mls/hr 01/10/20 23:45 01/11/20 00:30 Normal Saline - IV 125 mls/hr ASDIR ISELA Administration Vasopressin 50 units/ Sodium 100 mls @ 4 mls/hr 01/11/20 03:30 01/11/20 05:02 Chloride IVPB 2 units/hr ASDIR ISELA 4 mls/hr Titration Protocol 2 UNITS/HR Amiodarone HCl/Dextrose 360 mg in 200 mls @ 16.667 mls/hr 01/11/20 05:00 05:00 Nexterone 360 Mg/200 Ml Bag IVPB 16.667 mls/hr ASDIR ISELA Administration Protocol 0.5 MG/MIN Midazolam HCl 100 mg/ Sodium 100 mls @ 1 mls/hr 01/11/20 07:45 01/11/20 07:58 Chloride IVPB 1 mg/hr TITR ISELA 1 mls/hr Administration Protocol 1 MG/HR Insulin Aspart 1 vial 01/11/20 11:00 Novolog Vial Sliding Scale - SQ TIDAC [facility] Protocol Mupirocin 1 applic 01/11/20 10:00 Bactroban Ointment (For Decolonization) - NS 01/16/20 09:59 BID [facility] Laboratory Results - last 24 hr 01/10/20 01/10/20 01/10/20 19:20 19:20 19:20 WBC 12.4 H RBC 4.17 Hgb 13.2 Hct 40.6 D MCV 97.5 H MCH 31.7 MCHC 32.5 RDW 20.4 H Plt Count 596 H D MPV 7.7 Absolute Neuts (auto) 10.1 H Neutrophils % 80.8 Lymphocytes % 12.2 D Monocytes % 6.6 Eosinophils % 0.2 D Basophils % 0.2 Nucleated RBC % 1 H Anticoagulation Therapy Puncture Site Patient Temperature ABG pH ABG pCO2 at Pt Temp ABG pO2 at Pt Temp ABG HCO3 ABG O2 Sat (Measured) ABG O2 Content ABG Base Excess Doug Test O2 Delivery Device Oxygen Flow Rate Vent Mode Vent Rate Mechanical Rate PEEP Pressure Support Vent Sodium 133 L Potassium 7.3 H* Chloride 95 L Carbon Dioxide 25 Anion Gap 14 BUN 144.3 H* Creatinine 4.5 H Est GFR (CKD-EPI)AfAm 10.88 Est GFR (CKD-EPI)NonAf 9.39 POC Glucometer Random Glucose 132 H Lactic Acid Calcium 10.8 H Phosphorus Magnesium Total Bilirubin 0.4 AST 19 ALT 32 Alkaline Phosphatase 250 H Creatine Kinase Cancelled 25 L Troponin I Cancelled < 0.02 Total Protein 9.7 H Albumin 3.5 TSH Urine Color Urine Appearance Urine pH Ur Specific [place] Urine Protein Urine Glucose (UA) Urine Ketones Urine Blood Urine Nitrite Urine Bilirubin Urine Urobilinogen Ur Leukocyte Esterase Urine WBC (Auto) Urine RBC (Auto) Urine Casts (Auto) U Pathogenic Cast Auto U Epithel Cells (Auto) U Sm Round Cell (Auto) Urine Bacteria (Auto) Ur Random Creatinine Ur Random Sodium Ur Random Potassium 01/10/20 01/10/20 01/11/20 21:41 23:30 02:50 WBC RBC Hgb Hct MCV MCH MCHC RDW Plt Count MPV Absolute Neuts (auto) Neutrophils % Lymphocytes % Monocytes % Eosinophils % Basophils % Nucleated RBC % Anticoagulation Therapy Puncture Site Patient Temperature ABG pH ABG pCO2 at Pt Temp ABG pO2 at Pt Temp ABG HCO3 ABG O2 Sat (Measured) ABG O2 Content ABG Base Excess Doug Test O2 Delivery Device Oxygen Flow Rate Vent Mode Vent Rate Mechanical Rate PEEP Pressure Support Vent Sodium 136 Potassium 5.3 H Chloride 98 Carbon Dioxide 24 Anion Gap 14 BUN 146.7 H* Creatinine 4.7 H Est GFR (CKD-EPI)AfAm 10.32 Est GFR (CKD-EPI)NonAf 8.91 POC Glucometer Random Glucose 271 H Lactic Acid 1.8 Calcium 11.4 H Phosphorus Magnesium Total Bilirubin AST ALT Alkaline Phosphatase Creatine Kinase Troponin I < 0.02 Total Protein Albumin TSH Urine Color Yellow Urine Appearance Cloudy Urine pH 5.0 Ur Specific [place] 1.020 Urine Protein Trace Urine Glucose (UA) Negative Urine Ketones Trace H Urine Blood Negative Urine Nitrite Negative Urine Bilirubin Negative Urine Urobilinogen 0.2 Ur Leukocyte Esterase 3+ H Urine WBC (Auto) 112 Urine RBC (Auto) 5.9 Urine Casts (Auto) 8 U Pathogenic Cast Auto U Epithel Cells (Auto) 0.8 U Sm Round Cell (Auto) Urine Bacteria (Auto) 95.5 Ur Random Creatinine Ur Random Sodium Ur Random Potassium 01/11/20 01/11/20 01/11/20 02:50 02:50 02:50 WBC RBC Hgb Hct MCV MCH MCHC RDW Plt Count MPV Absolute Neuts (auto) Neutrophils % Lymphocytes % Monocytes % Eosinophils % Basophils % Nucleated RBC % Anticoagulation Therapy Puncture Site Patient Temperature ABG pH ABG pCO2 at Pt Temp ABG pO2 at Pt Temp ABG HCO3 ABG O2 Sat (Measured) ABG O2 Content ABG Base Excess Doug Test O2 Delivery Device Oxygen Flow Rate Vent Mode Vent Rate Mechanical Rate PEEP Pressure Support Vent Sodium Potassium Chloride Carbon Dioxide Anion Gap BUN Creatinine Est GFR (CKD-EPI)AfAm Est GFR (CKD-EPI)NonAf POC Glucometer Random Glucose Lactic Acid Calcium Phosphorus Magnesium Total Bilirubin AST ALT Alkaline Phosphatase Creatine Kinase Troponin I < 0.02 Total Protein Albumin TSH Urine Color Yellow Urine Appearance Cloudy Urine pH 5.0 Ur Specific [place] 1.016 Urine Protein Negative Urine Glucose (UA) Negative Urine Ketones Negative Urine Blood Negative Urine Nitrite Negative Urine Bilirubin Negative Urine Urobilinogen 0.2 Ur Leukocyte Esterase 2+ H Urine WBC (Auto) 14 Urine RBC (Auto) 2 Urine Casts (Auto) 19 U Pathogenic Cast Auto None U Epithel Cells (Auto) 11.8 U Sm Round Cell (Auto) None Urine Bacteria (Auto) 97.4 Ur Random Creatinine 56.0 Ur Random Sodium 49 Ur Random Potassium 01/11/20 01/11/20 01/11/20 02:50 03:28 05:30 WBC 12.8 H RBC 2.68 L Hgb 8.4 L Hct 26.1 L D MCV 97.5 H MCH 31.4 MCHC 32.2 RDW 20.1 H Plt Count 412 D MPV 7.0 L Absolute Neuts (auto) 10.0 H Neutrophils % 78.1 Lymphocytes % 13.8 Monocytes % 7.6 Eosinophils % 0.4 D Basophils % 0.1 Nucleated RBC % 0 Anticoagulation Therapy Puncture Site Left radial Patient Temperature 95.3 ABG pH 7.28 L ABG pCO2 at Pt Temp 43.4 ABG pO2 at Pt Temp 121 H ABG HCO3 20.3 L ABG O2 Sat (Measured) 98.1 H ABG O2 Content 11.6 ABG Base Excess -6.0 L Doug Test Positive O2 Delivery Device Nasal Oxygen Flow Rate 2l Vent Mode Vent Rate Mechanical Rate PEEP Pressure Support Vent Sodium Potassium Chloride Carbon Dioxide Anion Gap BUN Creatinine Est GFR (CKD-EPI)AfAm Est GFR (CKD-EPI)NonAf POC Glucometer Random Glucose Lactic Acid Calcium Phosphorus Magnesium Total Bilirubin AST ALT Alkaline Phosphatase Creatine Kinase Troponin I Total Protein Albumin TSH Urine Color Urine Appearance Urine pH Ur Specific [place] Urine Protein Urine Glucose (UA) Urine Ketones Urine Blood Urine Nitrite Urine Bilirubin Urine Urobilinogen Ur Leukocyte Esterase Urine WBC (Auto) Urine RBC (Auto) Urine Casts (Auto) U Pathogenic Cast Auto U Epithel Cells (Auto) U Sm Round Cell (Auto) Urine Bacteria (Auto) Ur Random Creatinine Ur Random Sodium Ur Random Potassium 50.0 01/11/20 01/11/20 01/11/20 05:30 05:41 06:00 WBC RBC Hgb Hct MCV MCH MCHC RDW Plt Count MPV Absolute Neuts (auto) Neutrophils % Lymphocytes % Monocytes % Eosinophils % Basophils % Nucleated RBC % Anticoagulation Therapy No Result Required. Puncture Site Right radial Patient Temperature ABG pH 7.31 L ABG pCO2 at Pt Temp 40.3 ABG pO2 at Pt Temp 391 H ABG HCO3 19.7 L ABG O2 Sat (Measured) 99.8 H ABG O2 Content 12.7 ABG Base Excess -5.6 L Doug Test Positive O2 Delivery Device Vent Oxygen Flow Rate 100% Vent Mode No Result Required. Vent Rate 14 Mechanical Rate No Result Required. PEEP 5.0 Pressure Support Vent 450 Sodium 140 Potassium 5.0 Chloride 107 Carbon Dioxide 22 Anion Gap 11 BUN 121.2 H* Creatinine 3.7 H Est GFR (CKD-EPI)AfAm 13.78 Est GFR (CKD-EPI)NonAf 11.89 POC Glucometer 128 Random Glucose 151 H Lactic Acid Calcium 9.2 Phosphorus 6.8 H Magnesium 4.0 H Total Bilirubin 0.3 AST 14 L ALT 19 Alkaline Phosphatase 162 H Creatine Kinase Troponin I Total Protein 6.3 L Albumin 2.2 L TSH 3.89 H Urine Color Urine Appearance Urine pH Ur Specific [place] Urine Protein Urine Glucose (UA) Urine Ketones Urine Blood Urine Nitrite Urine Bilirubin Urine Urobilinogen Ur Leukocyte Esterase Urine WBC (Auto) Urine RBC (Auto) Urine Casts (Auto) U Pathogenic Cast Auto U Epithel Cells (Auto) U Sm Round Cell (Auto) Urine Bacteria (Auto) Ur Random Creatinine Ur Random Sodium Ur Random Potassium Intubated s1 S2 RRR Lungs decreased Abd- soft, Jtube+ no edema A/P Septic shock Adrenal crisis Respiratory failure S/p V tach and Torsades Hyperkalemia--> resolved -- vent management per ICU -- spoke with ID -- she has a portacath in right chest wall -- for access -- PPM+ -- iv antibiotics -- continue with meds Problem List - Problems (1) DONIS (acute kidney injury) Code(s): N17.9 - ACUTE KIDNEY FAILURE, UNSPECIFIED (2) Acute renal failure superimposed on chronic kidney disease Code(s): N17.9 - ACUTE KIDNEY FAILURE, UNSPECIFIED; N18.9 - CHRONIC KIDNEY DISEASE, UNSPECIFIED (3) Diabetes mellitus Code(s): E11.9 - TYPE 2 DIABETES MELLITUS WITHOUT COMPLICATIONS (4) H/O cerebral infarction Code(s): Z86.73 - PRSNL HX OF TIA (TIA), AND CEREB INFRC W/O RESID DEFICITS (5) HTN (hypertension) Code(s): I10 - ESSENTIAL (PRIMARY) HYPERTENSION (6) Hyperkalemia Code(s): E87.5 - HYPERKALEMIA (7) Hypothyroidism Code(s): E03.9 - HYPOTHYROIDISM, UNSPECIFIED (8) Torsades de pointes Code(s): I47.2 - VENTRICULAR TACHYCARDIA (9) Adrenal insufficiency Code(s): E27.40 - UNSPECIFIED ADRENOCORTICAL INSUFFICIENCY (10) CAD (coronary artery disease) Code(s): I25.10 - ATHSCL HEART DISEASE OF [place] CORONARY ARTERY W/O ANG PCTRS
[2020-01-11] MEDS ORDERED: VANCOMYCIN 1 GRAM (PRE-DOCKED) 1,000 MG/250 ML BAG IVPB ONE (10:40)
[2020-01-11] MEDS: HEPARIN NA (PORCINE) 5,000 UNITS/ML 1ML VIAL SQ SCH ×3 (11:00→21:38)
[2020-01-11] MEDS: MUPIROCIN 2% TOPICAL OINTMENT FOR DECOLONIZATION NS SCH ×2 (11:11→21:40)
[2020-01-11] MEDS: CEFEPIME 1 GM in DEXTROSE 5%-WATER 100 ML IVPB SCH ×2 (11:14→21:38)
--- NOTE | 2020-01-11 11:29 | PN ---
Teaching Attending Note Name of Resident: China Arroyo ATTENDING PHYSICIAN STATEMENT I saw and evaluated the patient. I reviewed the resident's note and discussed the case with the resident. I agree with the resident's findings and plan as documented. SUBJECTIVE: Pt seen and examined in the ICU. Remains intubated, sedated on vasopressin gtt. Potassium improving. No further arrhythmias since intubation. OBJECTIVE: Vital Signs Period Temp Pulse Resp BP Sys/Schaeffer Pulse Ox Last 24 Hr 94.3 F-98.7 F 60-102 10-22 80-142/47-78 93-100 Intake & Output 01/08/20 01/09/20 01/10/20 01/11/20 23:59 23:59 23:59 23:59 Intake Total 766 Output Total 975 Balance -209 Weight 73.028 kg 66.179 kg Gen: intubated, sedated Heart: RRR Lung: decreased breath sounds at the bases Abd: soft, nontender, G tube Ext: no edema CBC, BMP 01/11/20 05:30 01/11/20 05:30 Active Medications Chlorhexidine Gluconate (Hibiclens For Decolonization -) 1 applic TP HS ISELA Heparin Sodium (Porcine) (Heparin -) 5,000 unit SQ BID ISELA IV Flush (Joseph-Cath Flush) 10 ml IVPUSH PRN PRN PRN Reason: FLUSH Sodium Chloride (Normal Saline -) 1,000 mls @ 125 mls/hr IV ASDIR ISELA Last Admin: 01/11/20 00:30 Dose: 125 mls/hr Vasopressin 50 units/ Sodium (Chloride) 100 mls @ 4 mls/hr IVPB ASDIR ISELA; Protocol Last Titration: 01/11/20 05:02 Dose: 2 units/hr, 4 mls/hr Amiodarone HCl/Dextrose (Nexterone 360 Mg/200 Ml Bag) 360 mg in 200 mls @ 16.667 mls/hr IVPB ASDIR ISELA; Protocol Last Admin: 01/11/20 05:00 Dose: 16.667 mls/hr Midazolam HCl 100 mg/ Sodium (Chloride) 100 mls @ 1 mls/hr IVPB TITR ISELA; Protocol Last Admin: 01/11/20 07:58 Dose: 1 mg/hr, 1 mls/hr Vancomycin HCl (Vancomycin (Pre-Docked)) 1,000 mg in 250 mls @ 166.667 mls/hr IVPB ONCE ONE; Protocol Stop: 01/11/20 12:09 Last Admin: 01/11/20 11:26 Dose: 166.667 mls/hr Cefepime HCl 1 gm/ Dextrose 100 mls @ 100 mls/hr IVPB BID [facility]; Protocol Last Admin: 01/11/20 11:14 Dose: Not Given Insulin Aspart (Novolog Vial Sliding Scale -) 1 vial SQ TIDAC [facility]; Protocol Mupirocin (Bactroban Ointment (For Decolonization) -) 1 applic NS BID [facility] Stop: 01/16/20 09:59 Last Admin: 01/11/20 11:11 Dose: 1 applic Pantoprazole Sodium (Protonix Iv) 40 mg IVPUSH BID [facility] ASSESSMENT AND PLAN: Acute Respiratory Failure V Tach Hyperkalemia Pneumonia Septic Shock Acute on Chronic Renal Failure Hypercalcemia COPD HTN DM Anemia Schizophrenia h/o CVA - continue antibiotics - f/u cultures - check CVP - IVF to keep CVP 8-12 - taper pressors to maintain MAP >65 - monitor urine output, creatinine - continue amiodarone - echocardiogram - monitor lytes - check LDH, haptoglobin - DVT/GI prophylaxis - continue ICU monitoring critical care time spent in reviewing chart, evaluating patient and formulating plan 35 min
[2020-01-11 11:40] LABS: LDH 147 U/L (84-246)
--- NOTE | 2020-01-11 11:44 | ECHO ---
Name: SEB ORDONEZ Exam:Adult Echocardiogram Study Date: 01/11/2020 08:23 AM Age: 69 yrs Reason For Study: V tachmHyperkalemia MMode/2D Measurements & Calculations IVSd: 0.71 cm Ao root diam: 2.7 cm LVIDd: 4.5 cm LA dimension: 1.9 cm LVIDs: 3.5 cm ACS: 1.5 cm LVPWd: 0.83 cm LVPWs: 1.1 cm EDV(Teich): 94.3 ml ESV(Teich): 49.2 ml Doppler Measurements & Calculations MV E max joslyn: 59.2 cm/sec Ao V2 max: 152.0 cm/sec MV A max joslyn: 87.9 cm/sec Ao max P.2 mmHg MV E/A: 0.67 TR max joslyn: 207.9 cm/sec Med Peak E' Joslyn: 6.3 cm/sec TR max P.3 mmHg Med E/e': 9.5 Lat Peak E' Joslyn: 6.8 cm/sec Lat E/e': 8.7 Procedure A complete two-dimensional transthoracic echocardiogram was performed (2D, M-mode, Doppler and color flow Doppler). Left Ventricle The left ventricle is normal in size. Left ventricular systolic function is severely reduced. Ejectio n Fraction = 35%. E/A reversal consistent with but not diagnostic of poor LV compliance. There is sever e global hypokinesis of the left ventricle. Right Ventricle The right ventricle is normal in size and function. Atria Normal left and right atrial size and function. Mitral Valve The mitral valve is normal in structure and function. There is trace mitral regurgitation. Tricuspid Valve The tricuspid valve is normal in structure and function. There is trace tricuspid regurgitation. Righ t ventricular systolic pressure is 23 mmhg. Assuming the RA pressure is 5 mmHg. Aortic Valve There is mild aortic valve thickening. Pulmonic Valve The pulmonic valve is not well visualized. Great Vessels The aortic root is normal size. Pericardium/Pleura There is no pericardial effusion. There is no pleural effusion. Interpretation Summary There is severe global hypokinesis of the left ventricle. Left ventricular systolic function is severely reduced. Ejection Fraction = 35%. There is trace mitral regurgitation. There is trace tricuspid regurgitation. Right ventricular systolic pressure is 23 mmhg. There is mild aortic valve thickening. MD Rom Scott 01/11/2020 11:43 AM
[2020-01-11] MEDS: INSULIN SLIDING SCALE (NOVOLOG) 1 VIAL SQ SCH ×2 (11:46→16:21)
--- NOTE | 2020-01-11 11:47 | CON.CARD ---
Consult Consult Specialty:: Cardiology Referred by:: ICU Reason for Consultation:: ventricular tachycardia - History of Present Illness Chief Complaint: abnormal labs History of Present Illness: 69F h/o CHF, schizophrenia, DM, CKD, hypothyroidism, GERD p/w elevated K from [facility] [place]. K 6.3 with elevated Cr, in ER K was 7.3. Was treatd for hyperkalemia, noted multiple runs of torsades de pointes per ER records, treated with 4 g magnesium sulfate, 1 g calcium gluconate, lokelma, IVF and started on amio gtt. Overnight central line placed, had episode of monomorphic VT with pulse and was intubated. This AM she is intubated and sedated, hx obtained from chart. 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: CVA Cardio/Vascular: Yes: CHF, HTN Pulmonary: Yes: COPD Renal/: Yes: Renal Failure Endocrine: Yes: Diabetes Mellitus, Hypothyroidism - Alcohol/Substance Use Hx Alcohol Use: No History of Substance Use: reports: None - Smoking History Smoking history: Unknown if ever smoked Have you smoked in the past 12 months: No - Social History ADL: Support Services History of Recent Travel: No Home Medications - Allergies Allergies/Adverse Reactions: Allergies Allergy/AdvReac Type Severity Reaction Status Date / Time lactose Allergy Verified 01/10/20 18:31 levofloxacin Allergy Verified 01/10/20 18:31 lisinopril Allergy Verified 01/10/20 18:31 Phenothiazines Allergy Verified 01/10/20 18:31 sulfamethoxazole Allergy Verified 01/10/20 18:31 [From Bactrim] trimethoprim [From Bactrim] Allergy Verified 01/10/20 18:31 zoysn Allergy Uncoded 01/10/20 18:31 - Home Medications Home Medications: Ambulatory Orders Acetaminophen Oral Solution [Tylenol Oral Solution -] 650 mg GT Q6H PRN Albuterol 2.5/Ipratropium 0.5 [Duoneb -] 1 neb IH QID 01/10/20 Carvedilol [Coreg -] 12.5 mg GT BID 01/10/20 Clopidogrel Bisulfate [Plavix -] 75 mg GT DAILY 01/10/20 Dextran 70/Hypromellose/Pf [Genteal Tears 0.1%-0.3% Drop] 1 each OU TID Fludrocortisone Acetate [Florinef -] 0.1 mg GT ASDIR 01/10/20 Furosemide Oral Solution [Lasix Oral Solution -] 20 mg GT DAILY 01/10/20 Heparin Sodium,Porcine [Heparin Sodium] 5,000 unit IJ Q12H 01/10/20 Hydrocortisone [Cortef -] 10 mg GT DAILY 01/10/20 Insulin Lispro [Humalog] 100 unit SQ TID 01/10/20 Levothyroxine Sodium [Unithroid] 100 mcg GT DAILY 01/10/20 Pantoprazole Suspension [Protonix Packets For Oral Suspension -] 40 mg GT DAILY 01/10/20 Risperidone [Risperdal Oral Soln] 2 mg GT HS 01/10/20 Risperidone [Risperdal Oral Soln] 3 mg GT DAILY 01/10/20 Sennosides [Senna] 10 ml GT DAILY PRN 01/10/20 Family Medical History Family History: Unable to Obtain Review of Systems Unable to obtain ROS, reason: intubated, sedated Vital Signs: Vital Signs Temperature 97.5 F L 01/11/20 09:00 Pulse Rate 75 01/11/20 09:00 Respiratory Rate 14 01/11/20 09:00 Blood Pressure 104/66 01/11/20 09:00 O2 Sat by Pulse Oximetry (%) 100 01/11/20 08:26 Constitutional: Yes: No Distress, Calm Eyes: Yes: Conjunctiva Clear, EOM Intact HENT: Yes: Atraumatic, Normocephalic Neck: Yes: Supple, Trachea Midline Respiratory: Yes: Regular, Mechanically Ventilated Gastrointestinal: Yes: Normal Bowel Sounds, Soft Cardiovascular: Yes: Regular Rate and Rhythm JVD: No PMI: Non-Displaced Extremities: No: Cold Edema: No Integumentary: No: Jaundice Neurological: Yes: Other (sedated) Psychiatric: No: Agitated - Other Data Labs, Other Data: CBC, BMP 01/11/20 05:30 01/11/20 05:30 Troponin, BNP 01/10/20 01/10/20 01/10/20 19:20 19:20 21:41 Troponin I Cancelled < 0.02 < 0.02 01/11/20 02:50 Troponin I < 0.02 Troponin, BNP 01/10/20 01/10/20 01/10/20 19:20 19:20 21:41 Troponin I Cancelled < 0.02 < 0.02 01/11/20 02:50 Troponin I < 0.02 Assessment/Plan EKG: sinus, LVH, no ischemic changes, QTc 439 ms tele: sinus, VT episode 4:30 AM ventricular tachycardia - reportedly torsades in the ER and episode of VT while in ICU on amio gtt - likely in setting of electrolyte abnormalities - trop neg x 3, EKG no ischemic changes, less likely ACS - cont amio gtt for now - agree with holding risperdal - echo pending - would interrogate PPM/ICD septic shock, UTI - manage per primary, ID - on vasopressin per critical care - cont pressors for MAP >60 hyperkalemia, DONIS on CKD - renal following CHF - EF not known, echo pending - s/p PPM/ICD - holding home lasix, bb given septic shock CAD - per chart - holding clopidogrel DM - manage per primary schizophrenia - holding risperdal as above estimated critical care time = 35 min
--- NOTE | 2020-01-11 12:34 | CONS ---
DATE OF CONSULTATION: DATE OF DICTATION: 01/11/2020 HISTORY OF PRESENT ILLNESS: The patient is a 69-year-old intermediate resident who was evaluated for possible sepsis. History was obtained from the chart as she cannot give a history as she is presently intubated in the Intensive Care Unit. The patient was transferred from the intermediate after she was noted to have hyperkalemia. According to the notes her serum potassium was 6.3. She was transferred to the emergency room where she was noted to have a potassium of 7.3. Her course was complicated by ventricular tachycardia and Torsades. In the emergency room a Lozano catheter showed cloudy urine. According to the notes, she has an indwelling Lozano catheter at the intermediate. The patient was treated with amiodarone and magnesium. Her course was complicated by worsening respiratory status requiring intubation. At 5 a.m. this morning she was found to be unresponsive with ventricular tachycardia with a pulse. She was admitted to the Intensive Care Unit. A central line was placed and her course was further complicated by hypotension requiring pressors. Cultures were obtained. She was empirically treated with cefepime. At the present time she was intubated in the Intensive Care Unit on mechanical ventilation hypotensive on pressors. She was recently hospitalized earlier this month with a malfunctioning jejunostomy tube. No reports of recent febrile illness, shaking chills, labored breathing, vomiting, diarrhea, infected decubitus ulcers. PAST MEDICAL HISTORY: Positive for schizophrenia, COPD, congestive heart failure, chronic kidney disease, diabetes mellitus, hypertension, asthma, gastroesophageal reflux, CVA. ALLERGIES: To multiple agents including LEVAQUIN, SULFA, ZOSYN, PHENOTHIAZINE, LISINOPRIL. Nature of the allergies is not documented. MEDICATIONS: Present medications include cefepime, albuterol, amiodarone, magnesium. SOCIAL HISTORY: She resides in a [facility] facility, no active tobacco or alcohol use. PAST SURGICAL HISTORY: Status post feeding jejunostomy tube, right-sided vascular port and permanent pacemaker. SYSTEMS REVIEW: Neurologic: Positive for mental illness. Cardiac: As per HPI. Respiratory: As per HPI. Gastrointestinal: Status post feeding tube. Genitourinary: Acute on chronic renal failure. LABORATORY DATA: White count 12.8, 78 neutrophils, 13 lymphocytes, 7 monocytes, hematocrit 26.1, platelet count 412, creatinine 3.7, total bilirubin 0.3, alkaline phosphatase 162, AST 14. Urinalysis 14 white cells. Blood and urine cultures are pending. Chest x-ray showed some atelectasis at the upper lobes bilaterally. No focal consolidation. There was presence of a permanent pacemaker and a port. PHYSICAL EXAMINATION: General: On physical examination the patient is on the ventilator not responsive. Vitals: Temperature 97.5, blood pressure 104/66, pulse 74 regular, respirations 14 per minute. HEENT: Sclera anicteric. Patient was orally intubated. Heart: Sounds S1, S2. Lungs: Air entry bilaterally. Port site no erythema or tenderness. Abdomen: Soft, no tenderness elicited, no mass, rebound, or rigidity. Extremities: Negative for edema. Negative Wendy sign. IMPRESSION: 1. Hyperkalemia, status post Torsades. 2. Acute respiratory failure. 3. Hypotension, rule out septic shock. 4. Urinary tract infection, rule out sepsis secondary to urinary tract focus. 5. Leukocytosis. 6. Acute on chronic renal failure. 7. HISTORY OF MULTIPLE ANTIBIOTIC ALLERGIES. RECOMMENDATIONS: Await sepsis workup. Continue ventilator and hemodynamic support. Empiric antibiotic coverage in this patient with multiple antibiotic allergies with cefepime and vancomycin and then culture results. Prognosis is guarded. Critical care time spent 35 minutes. Thank you for the kind referral. PATEL SHAHID M.D. [id number]
[2020-01-11 15:15] LABS: HEMOGLOBIN 7.9 GM/dL (10.7-15.3); MCH 31.8 pg (25.7-33.7); MCHC 32.7 g/dl (32.0-36.0); MEAN CELL VOLUME 97.3 fl (80-96); MEAN PLT VOLUME 7.1 fl (7.5-11.1); PLATELET COUNT 365 K/MM3 (134-434); RBC 2.47 M/mm3 (3.60-5.2); RDW 19.9 % (11.6-15.6); WHITE BLOOD COUNT 9.6 K/mm3 (4.0-10.0)
[2020-01-11 15:49] LABS: CALCIUM 9.2 mg/dL (8.5-10.1); CREATININE 3.4 mg/dL (0.55-1.3); POTASSIUM 5.1 mmol/L (3.5-5.1)
[2020-01-11 15:54] LABS: BLOOD UREA NITROGEN 118.2 mg/dL (7-18)
--- NOTE | 2020-01-11 16:26 | PN ---
Progress Note, Physician History of Present Illness: Pt seen and examined at bedside. She is now intubated. She remains in the ICU. Her renal function is improving. Her potassium is also improving. - Current Medication List Current Medications: Active Medications Chlorhexidine Gluconate (Hibiclens For Decolonization -) 1 applic TP HS ISELA Heparin Sodium (Porcine) (Heparin -) 5,000 unit SQ BID ISELA Last Admin: 01/11/20 11:00 Dose: 5,000 unit IV Flush (Joseph-Cath Flush) 10 ml IVPUSH PRN PRN PRN Reason: FLUSH Sodium Chloride (Normal Saline -) 1,000 mls @ 125 mls/hr IV ASDIR ISELA Last Admin: 01/11/20 00:30 Dose: 125 mls/hr Vasopressin 50 units/ Sodium (Chloride) 100 mls @ 4 mls/hr IVPB ASDIR ISELA; Protocol Last Titration: 01/11/20 05:02 Dose: 2 units/hr, 4 mls/hr Amiodarone HCl/Dextrose (Nexterone 360 Mg/200 Ml Bag) 360 mg in 200 mls @ 16.667 mls/hr IVPB ASDIR ISELA; Protocol Last Admin: 01/11/20 16:08 Dose: 16.667 mls/hr Midazolam HCl 100 mg/ Sodium (Chloride) 100 mls @ 1 mls/hr IVPB TITR ISELA; Protocol Last Titration: 01/11/20 09:00 Dose: 2 mg/hr, 2 mls/hr Cefepime HCl 1 gm/ Dextrose 100 mls @ 100 mls/hr IVPB BID ISELA; Protocol Last Admin: 01/11/20 11:14 Dose: Not Given Insulin Aspart (Novolog Vial Sliding Scale -) 1 vial SQ TIDAC [facility]; Protocol Last Admin: 01/11/20 11:46 Dose: Not Given Mupirocin (Bactroban Ointment (For Decolonization) -) 1 applic NS BID ISELA Stop: 01/16/20 09:59 Last Admin: 01/11/20 11:11 Dose: 1 applic Pantoprazole Sodium (Protonix Iv) 40 mg IVPUSH BID ISELA - Objective Vital Signs: Vital Signs Temperature 97.5 F L 01/11/20 15:00 Pulse Rate 75 01/11/20 15:00 Respiratory Rate 14 02/18/20 15:00 Blood Pressure 107/62 02/18/20 15:00 O2 Sat by Pulse Oximetry (%) 100 01/11/20 08:26 Constitutional: Yes: Calm Eyes: Yes: Conjunctiva Clear HENT: Yes: Atraumatic Cardiovascular: Yes: S1, S2 Respiratory: Yes: Mechanically Ventilated Gastrointestinal: Yes: Soft Genitourinary: Yes: WNL Musculoskeletal: Yes: WNL Edema: No Neurological: Yes: Lethargy Labs: CBC, BMP 01/11/20 13:40 01/11/20 13:40 - ....Imaging Chest X-ray: Report Reviewed Problem List - Problems (1) DONIS (acute kidney injury) Code(s): N17.9 - ACUTE KIDNEY FAILURE, UNSPECIFIED (2) Hyperkalemia Code(s): E87.5 - HYPERKALEMIA (3) CAD (coronary artery disease) Code(s): I25.10 - ATHSCL HEART DISEASE OF [place] CORONARY ARTERY W/O ANG PCTRS (4) CHF (congestive heart failure) Code(s): I50.9 - HEART FAILURE, UNSPECIFIED Assessment/Plan Current Medications Generic Name Dose Route Start Last Admin Trade Name Freq PRN Reason Stop Dose Admin Chlorhexidine Gluconate 1 applic 01/11/20 22:00 Hibiclens For Decolonization - TP HS ISELA Heparin Sodium (Porcine) 5,000 unit 01/11/20 10:00 01/11/20 11:00 Heparin - SQ 5,000 unit BID ISELA Administration IV Flush 10 ml 01/11/20 04:01 Joseph-Cath Flush IVPUSH PRN PRN FLUSH Sodium Chloride 1,000 mls @ 125 mls/hr 01/10/20 23:45 01/11/20 00:30 Normal Saline - IV 125 mls/hr ASDIR ISELA Administration Vasopressin 50 units/ Sodium 100 mls @ 4 mls/hr 01/11/20 03:30 01/11/20 05:02 Chloride IVPB 2 units/hr ASDIR ISELA 4 mls/hr Titration Protocol 2 UNITS/HR Amiodarone HCl/Dextrose 360 mg in 200 mls @ 16.667 mls/hr 01/11/20 05:00 16:08 Nexterone 360 Mg/200 Ml Bag IVPB 16.667 mls/hr ASDIR ISELA Administration Protocol 0.5 MG/MIN Midazolam HCl 100 mg/ Sodium 100 mls @ 1 mls/hr 01/11/20 07:45 01/11/20 09:00 Chloride IVPB 2 mg/hr TITR ISELA 2 mls/hr Titration Protocol 1 MG/HR Cefepime HCl 1 gm/ Dextrose 100 mls @ 100 mls/hr 01/11/20 10:45 01/11/20 11: 14 IVPB Not Given BID [facility] Protocol Insulin Aspart 1 vial 01/11/20 11:00 01/11/20 16:21 Novolog Vial Sliding Scale - SQ Not Given TIDAC [facility] Protocol Mupirocin 1 applic 01/11/20 10:00 01/11/20 11:11 Bactroban Ointment (For Decolonization) - NS 01/16/20 09:59 1 applic BID ISELA Administration Pantoprazole Sodium 40 mg 01/11/20 22:00 Protonix Iv IVPUSH BID ISELA Impression 1. DONIS 2. hyperkalemia 3. hypercalcemia 4. hx cva 5. hx htn 6. dm 7. resp failure requiring intubation Plan - renal function is improving - urine output improving - potassium improved - no indication for HD at this time - monitor calcium - check pth - serologic workup - check u/s kidneys and bladder
[2020-01-11] MEDS ORDERED: PROPOFOL 1,000,000 MCG/100 ML VIAL IVPB SCH (19:30)
[2020-01-11] MEDS ORDERED: DEXTROSE 5%-WATER 100 ML IVPB ONE (21:06)
[2020-01-11] MEDS ORDERED: CEFEPIME HCL 1 GM VIAL (RESTRICTED TO ID) ONE (21:06)
[2020-01-11] MEDS: PANTOPRAZOLE SODIUM 40 MG VIAL IVPUSH SCH (21:38)
[2020-01-11] MEDS: CHLORHEXIDINE GLUCONATE 4% CLEANSER FOR DECOLONIZATION TP SCH (21:40)
[2020-01-11] MEDS ORDERED: CHLORHEXIDINE GLUCONATE 4% CLEANSER FOR DECOLONIZATION TP SCH (22:00)
[2020-01-12] MEDS: AMIODARONE IN DEXTROSE,ISO-OSM 360 MG/200 ML BAG IVPB SCH ×3 (02:34→15:29)
[2020-01-12] MEDS: VASOPRESSIN 50 UNITS in SODIUM CHLORIDE 97.5 ML IVPB SCH (04:00)
[2020-01-12] MEDS ORDERED: MIDAZOLAM IN 0.9 % SOD.CHLORID 1 MG/1 ML PLAST..BAG ONE (06:00)
[2020-01-12] MEDS: MIDAZOLAM IN 0.9 % SOD.CHLORID 100 MG/100 ML PLAST..BAG IVPB SCH (06:33)
[2020-01-12 06:38] LABS: BASO % 0.3 % (0-2.0); EOS % 1.1 % (0-4.5); HEMOGLOBIN 7.1 GM/dL (10.7-15.3); LYMPH % 12.1 % (8-40); MCHC 32.4 g/dl (32.0-36.0); MEAN CELL VOLUME 98.8 fl (80-96); MONO % 8.2 % (3.8-10.2); NEUT % 78.3 % (42.8-82.8); PLATELET COUNT 316 K/MM3 (134-434); RBC 2.23 M/mm3 (3.60-5.2); RDW 20.4 % (11.6-15.6); WHITE BLOOD COUNT 7.6 K/mm3 (4.0-10.0)
[2020-01-12 06:50] LABS: BILIRUBIN,TOTAL 0.3 mg/dL (0.2-1); BLOOD UREA NITROGEN 95.5 mg/dL (7-18); CALCIUM 8.7 mg/dL (8.5-10.1); CREATININE 2.8 mg/dL (0.55-1.3); MAGNESIUM 3.2 mg/dL (1.8-2.4); PHOSPHOROUS 4.1 mg/dL (2.5-4.9); POTASSIUM 4.4 mmol/L (3.5-5.1); TOT PROT 5.6 g/dl (6.4-8.2)
[2020-01-12] MEDS: INSULIN SLIDING SCALE (NOVOLOG) 1 VIAL SQ SCH ×3 (07:01→17:47)
[2020-01-12] MEDS: NOREPINEPHRINE BITARTRATE 8,000 MCG in DEXTROSE 5%-WATER - 492 ML IV SCH (08:09)
[2020-01-12] MEDS ORDERED: CEFEPIME HCL 1 GM VIAL (RESTRICTED TO ID) ONE ×2 (09:01→22:05)
[2020-01-12] MEDS ORDERED: DEXTROSE 5%-WATER 100 ML IVPB ONE ×2 (09:02→22:06)
[2020-01-12] MEDS: CEFEPIME 1 GM in DEXTROSE 5%-WATER 100 ML IVPB SCH ×2 (09:04→22:20)
[2020-01-12] MEDS: PANTOPRAZOLE SODIUM 40 MG VIAL IVPUSH SCH ×2 (09:05→22:22)
[2020-01-12] MEDS: MUPIROCIN 2% TOPICAL OINTMENT FOR DECOLONIZATION NS SCH ×2 (09:05→22:21)
[2020-01-12] MEDS ORDERED: HYDROCORTISONE 20 MG TABLET PO SCH (11:00)
[2020-01-12] MEDS ORDERED: LACTATED RINGERS SOLUTION 1000 ML INFUS.BAG IV ONE (11:00)
[2020-01-12] MEDS: HEPARIN NA (PORCINE) 5,000 UNITS/ML 1ML VIAL SQ SCH ×2 (11:00→22:21)
[2020-01-12] MEDS ORDERED: FLUDROCORTISONE ACETATE 0.1 MG TABLET (FP) GT SCH (11:01)
--- NOTE | 2020-01-12 11:03 | PN ---
Progress Note (short form) - Note Progress Note: s: intubated, awake Current Medications Chlorhexidine Gluconate (Hibiclens For Decolonization -) 1 applic TP HS ISELA Last Admin: 01/11/20 21:40 Dose: 1 applic Heparin Sodium (Porcine) (Heparin -) 5,000 unit SQ BID ISELA Last Admin: 01/11/20 21:38 Dose: 5,000 unit IV Flush (Joseph-Cath Flush) 10 ml IVPUSH PRN PRN PRN Reason: FLUSH Sodium Chloride (Normal Saline -) 1,000 mls @ 125 mls/hr IV ASDIR ISELA Last Admin: 01/11/20 23:54 Dose: 125 mls/hr Amiodarone HCl/Dextrose (Nexterone 360 Mg/200 Ml Bag) 360 mg in 200 mls @ 16.667 mls/hr IVPB ASDIR ISELA; Protocol Last Admin: 01/12/20 05:20 Dose: Not Given Cefepime HCl 1 gm/ Dextrose 100 mls @ 100 mls/hr IVPB BID [facility]; Protocol Last Admin: 01/12/20 09:04 Dose: 100 mls/hr Propofol (Diprivan -) 1,000,000 mcg in 100 mls @ 1.985 mls/hr IVPB TITR [facility]; Protocol Last Titration: 01/12/20 08:00 Dose: 0 mcg/kg/min, 0 mls/hr Midazolam HCl (Midazolam 100mg/100ml-0.9%Nacl) 100 mg in 100 mls @ 1 mls/hr IVPB TITR [facility]; Protocol Last Titration: 01/12/20 08:10 Dose: 0 mg/hr, 0 mls/hr Norepinephrine Bitartrate 8, (000 mcg/ Dextrose) 500 mls @ 18.75 mls/hr IV TITR I[facility]; Protocol Last Admin: 01/12/20 08:09 Dose: 5 mcg/min, 18.75 mls/hr Insulin Aspart (Novolog Vial Sliding Scale -) 1 vial SQ TIDAC [facility]; Protocol Last Admin: 01/12/20 07:01 Dose: Not Given Mupirocin (Bactroban Ointment (For Decolonization) -) 1 applic NS BID ISELA Stop: 01/16/20 09:59 Last Admin: 01/12/20 09:05 Dose: 1 applic Pantoprazole Sodium (Protonix Iv) 40 mg IVPUSH BID [facility] Last Admin: 01/12/20 09:05 Dose: 40 mg Vital Signs Period Temp Pulse Resp BP Sys/Schaeffer Pulse Ox Last 24 Hr 95.6 F-97.9 F 60-76 12-20 92-107/47-66 97-100 Constitutional: Yes: No Distress, Calm Eyes: Yes: Conjunctiva Clear, EOM Intact HENT: Yes: Atraumatic, Normocephalic Neck: Yes: Supple, Trachea Midline Respiratory: Yes: Regular, Mechanically Ventilated Gastrointestinal: Yes: Normal Bowel Sounds, Soft Cardiovascular: Yes: Regular Rate and Rhythm JVD: No PMI: Non-Displaced Extremities: No: Cold Edema: No Integumentary: No: Jaundice Neurological: Yes: Other (sedated) Psychiatric: No: Agitated Assessment/Plan EKG: sinus, LVH, no ischemic changes, QTc 439 ms tele: sinus, artifact, NSVT echo 12/2019 severe global hypokinesis of LV, EF 35%, tr MR, tr TR, RVSP 23 mmHg ventricular tachycardia - reportedly torsades in the ER and episode of VT while in ICU on amio gtt - likely in setting of electrolyte abnormalities, cardiomyopathy - trop neg x 3, EKG no ischemic changes, less likely ACS - cont amio gtt for now - agree with holding risperdal - would interrogate PPM/ICD - device core piler not known, 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
--- NOTE | 2020-01-12 11:13 | PN ---
Progress Note (short form) - Note Progress Note: remains intubated Vital Signs - 24 hr 01/11/20 01/11/20 01/11/20 12:10 13:00 15:00 Temperature 97.8 F 97.5 F L Pulse Rate 75 75 Respiratory 14 14 14 Rate Blood Pressure 105/60 107/62 O2 Sat by Pulse Oximetry (%) 01/11/20 01/11/20 01/11/20 16:54 17:00 19:00 Temperature 97.2 F L 97.7 F Pulse Rate 75 60 Respiratory 16 20 12 Rate Blood Pressure 106/66 105/60 O2 Sat by Pulse Oximetry (%) 01/11/20 01/11/20 01/11/20 20:34 21:00 23:00 Temperature 97.4 F L 97.2 F L Pulse Rate 75 75 Respiratory 14 14 19 Rate Blood Pressure 105/58 L 102/58 L O2 Sat by Pulse 100 Oximetry (%) 01/12/20 01/12/20 01/12/20 00:04 01:00 03:00 Temperature 95.6 F L 95.7 F L Pulse Rate 75 75 Respiratory 14 19 15 Rate Blood Pressure 102/60 100/57 L O2 Sat by Pulse Oximetry (%) 01/12/20 01/12/20 01/12/20 03:16 04:00 04:27 Temperature Pulse Rate 76 Respiratory 14 Rate Blood Pressure 92/57 L O2 Sat by Pulse 97 Oximetry (%) 01/12/20 01/12/20 01/12/20 05:00 07:00 08:09 Temperature 97.9 F 97.6 F Pulse Rate 75 75 75 Respiratory 16 16 Rate Blood Pressure 101/60 99/62 95/62 O2 Sat by Pulse Oximetry (%) 01/12/20 01/12/20 08:28 09:00 Temperature 97.8 F Pulse Rate 75 Respiratory 16 16 Rate Blood Pressure 93/47 L O2 Sat by Pulse Oximetry (%) Current Medications Generic Name Dose Route Start Last Admin Trade Name Freq PRN Reason Stop Dose Admin Chlorhexidine Gluconate 1 applic 01/11/20 22:00 01/11/20 21:40 Hibiclens For Decolonization - TP 1 applic HS ISELA Administration Fludrocortisone Acetate 0.1 mg 01/12/20 11:01 Florinef - GT [id number]@1000 ISELA Heparin Sodium (Porcine) 5,000 unit 01/11/20 10:00 01/11/20 21:38 Heparin - SQ 5,000 unit BID ISELA Administration Hydrocortisone 100 mg 01/12/20 11:00 Cortef - PO 01/15/20 10:59 DAILY ISELA IV Flush 10 ml 01/11/20 04:01 Joseph-Cath Flush IVPUSH PRN PRN FLUSH Sodium Chloride 1,000 mls @ 125 mls/hr 01/10/20 23:45 01/11/20 23:54 Normal Saline - IV 125 mls/hr ASDIR ISELA Administration Amiodarone HCl/Dextrose 360 mg in 200 mls @ 16.667 mls/hr 01/11/20 05:00 05:20 Nexterone 360 Mg/200 Ml Bag IVPB Not Given ASDIR ISELA Protocol 0.5 MG/MIN Cefepime HCl 1 gm/ Dextrose 100 mls @ 100 mls/hr 01/11/20 10:45 01/12/20 09: 04 IVPB 100 mls/hr BID ISELA Administration Protocol Propofol 1,000,000 mcg in 100 mls @ 1.985 mls/hr 01/11/20 19:30 01/12/20 08: 00 Diprivan - IVPB 0 mcg/kg/min TITR ISELA 0 mls/hr Titration Protocol 5 MCG/KG/MIN Midazolam HCl 100 mg in 100 mls @ 1 mls/hr 01/12/20 06:15 01/12/20 08:10 Midazolam 100mg/100ml-0.9%Nacl IVPB 0 mg/hr TITR ISELA 0 mls/hr Titration Protocol 1 MG/HR Norepinephrine Bitartrate 8, 500 mls @ 18.75 mls/hr 01/12/20 07:15 01/12/20 08:09 000 mcg/ Dextrose IV 5 mcg/min TITR ISELA 18.75 mls/hr Administration Protocol 5 MCG/MIN Insulin Aspart 1 vial 01/11/20 11:00 01/12/20 07:01 Novolog Vial Sliding Scale - SQ Not Given TIDAC [facility] Protocol Mupirocin 1 applic 01/11/20 10:00 01/12/20 09:05 Bactroban Ointment (For Decolonization) - NS 01/16/20 09:59 1 applic BID ISELA Administration Pantoprazole Sodium 40 mg 01/11/20 22:00 01/12/20 09:05 Protonix Iv IVPUSH 40 mg BID ISELA Administration Laboratory Results - last 24 hr 01/11/20 01/11/20 01/11/20 02:50 02:50 11:30 WBC RBC Hgb Hct MCV MCH MCHC RDW Plt Count MPV Absolute Neuts (auto) Neutrophils % Lymphocytes % Monocytes % Eosinophils % Basophils % Nucleated RBC % Haptoglobin 308 Sodium Potassium Chloride Carbon Dioxide Anion Gap BUN Creatinine Est GFR (CKD-EPI)AfAm Est GFR (CKD-EPI)NonAf POC Glucometer 135 Random Glucose Calcium Phosphorus Magnesium Total Bilirubin AST ALT Alkaline Phosphatase LD Total 147 Troponin I < 0.02 Total Protein Albumin Random Vancomycin 01/11/20 01/11/20 01/11/20 13:40 13:40 16:18 WBC 9.6 RBC 2.47 L Hgb 7.9 L Hct 24.0 L MCV 97.3 H MCH 31.8 MCHC 32.7 RDW 19.9 H Plt Count 365 MPV 7.1 L Absolute Neuts (auto) Neutrophils % Lymphocytes % Monocytes % Eosinophils % Basophils % Nucleated RBC % Haptoglobin Sodium 139 Potassium 5.1 Chloride 107 Carbon Dioxide 22 Anion Gap 10 BUN 118.2 H* Creatinine 3.4 H Est GFR (CKD-EPI)AfAm 15.27 Est GFR (CKD-EPI)NonAf 13.17 POC Glucometer 120 Random Glucose 161 H Calcium 9.2 Phosphorus Magnesium Total Bilirubin AST ALT Alkaline Phosphatase LD Total Troponin I Total Protein Albumin Random Vancomycin 01/11/20 01/12/20 01/12/20 22:16 05:30 05:30 WBC 7.6 RBC 2.23 L Hgb 7.1 L Hct 22.0 L MCV 98.8 H MCH 32.0 MCHC 32.4 RDW 20.4 H Plt Count 316 MPV 7.0 L Absolute Neuts (auto) 6.0 Neutrophils % 78.3 Lymphocytes % 12.1 Monocytes % 8.2 Eosinophils % 1.1 D Basophils % 0.3 Nucleated RBC % 0 Haptoglobin Sodium Potassium Chloride Carbon Dioxide Anion Gap BUN Creatinine Est GFR (CKD-EPI)AfAm Est GFR (CKD-EPI)NonAf POC Glucometer 129 Random Glucose Calcium Phosphorus Magnesium Total Bilirubin AST ALT Alkaline Phosphatase LD Total Troponin I Total Protein Albumin Random Vancomycin 16.7 01/12/20 01/12/20 05:30 05:48 WBC RBC Hgb Hct MCV MCH MCHC RDW Plt Count MPV Absolute Neuts (auto) Neutrophils % Lymphocytes % Monocytes % Eosinophils % Basophils % Nucleated RBC % Haptoglobin Sodium 145 Potassium 4.4 Chloride 114 H Carbon Dioxide 20 L Anion Gap 10 BUN 95.5 H Creatinine 2.8 H Est GFR (CKD-EPI)AfAm 19.31 Est GFR (CKD-EPI)NonAf 16.66 POC Glucometer 119 Random Glucose 123 H Calcium 8.7 Phosphorus 4.1 Magnesium 3.2 H Total Bilirubin 0.3 AST 11 L ALT 15 Alkaline Phosphatase 130 H LD Total Troponin I Total Protein 5.6 L Albumin 2.0 L Random Vancomycin S1 S2 RRR Lungs clear Abd- soft, NT, GT/JT NO edema de la garza PPM Rt portacath PLAN Acute anemia -- check stool -- transfuse today Acute respiratory failure -- weaning per ICU team Sepsis -- on Cefepime Adrenal insufficiency -- on Florinef -- stress dose steroids h/o aspiration pneumonia -- had a large hiatal hernia -- has both G and J tube -- feeding and meds through J tube and intermittent suctioning through G tube -- swallow eval for possible pleasure feeds-- very small bites just for taste only Acute renal failure -- renal function better
--- NOTE | 2020-01-12 11:25 | PN ---
Teaching Attending Note Name of Resident: Sukumar Whitmore ATTENDING PHYSICIAN STATEMENT I saw and evaluated the patient. I reviewed the resident's note and discussed the case with the resident. I agree with the resident's findings and plan as documented. SUBJECTIVE: Pt seen and examined in the ICU. Remains intubated, awake off sedation. Tolerating CPAP/PS and subsequently extubated during rounds. No significant arrhythmias overnight. Good urine output. Back on levophed gtt. OBJECTIVE: Vital Signs Period Temp Pulse Resp BP Sys/Schaeffer Pulse Ox Last 24 Hr 95.6 F-97.9 F 60-76 12-20 92-107/47-66 97-100 Intake & Output 01/09/20 01/10/20 01/11/20 01/12/20 23:59 23:59 23:59 23:59 Intake Total 2944 1192.7 Output Total 2835 600 Balance 109 592.7 Weight 73.028 kg 66.179 kg 70.261 kg Gen: extubated Heart: RRR Lung: decreased breath sounds at the bases Abd: soft, nontender Ext: no edema CBC, BMP 01/12/20 05:30 01/12/20 05:30 Active Medications Chlorhexidine Gluconate (Hibiclens For Decolonization -) 1 applic TP HS ISELA Last Admin: 01/11/20 21:40 Dose: 1 applic Fludrocortisone Acetate (Florinef -) 0.1 mg GT MoWeFr@1000 ISELA Heparin Sodium (Porcine) (Heparin -) 5,000 unit SQ BID ISELA Last Admin: 01/11/20 21:38 Dose: 5,000 unit Hydrocortisone (Cortef -) 100 mg PO DAILY [facility] Stop: 01/15/20 10:59 IV Flush (Joseph-Cath Flush) 10 ml IVPUSH PRN PRN PRN Reason: FLUSH Sodium Chloride (Normal Saline -) 1,000 mls @ 125 mls/hr IV ASDIR ISELA Last Admin: 01/11/20 23:54 Dose: 125 mls/hr Amiodarone HCl/Dextrose (Nexterone 360 Mg/200 Ml Bag) 360 mg in 200 mls @ 16.667 mls/hr IVPB ASDIR [facility]; Protocol Last Admin: 01/12/20 05:20 Dose: Not Given Cefepime HCl 1 gm/ Dextrose 100 mls @ 100 mls/hr IVPB BID [facility]; Protocol Last Admin: 01/12/20 09:04 Dose: 100 mls/hr Propofol (Diprivan -) 1,000,000 mcg in 100 mls @ 1.985 mls/hr IVPB TITR [facility]; Protocol Last Titration: 01/12/20 08:00 Dose: 0 mcg/kg/min, 0 mls/hr Midazolam HCl (Midazolam 100mg/100ml-0.9%Nacl) 100 mg in 100 mls @ 1 mls/hr IVPB TITR [facility]; Protocol Last Titration: 01/12/20 08:10 Dose: 0 mg/hr, 0 mls/hr Norepinephrine Bitartrate 8, (000 mcg/ Dextrose) 500 mls @ 18.75 mls/hr IV TITR [facility]; Protocol Last Admin: 01/12/20 08:09 Dose: 5 mcg/min, 18.75 mls/hr Insulin Aspart (Novolog Vial Sliding Scale -) 1 vial SQ TIDAC [facility]; Protocol Last Admin: 01/12/20 07:01 Dose: Not Given Mupirocin (Bactroban Ointment (For Decolonization) -) 1 applic NS BID [facility] Stop: 01/16/20 09:59 Last Admin: 01/12/20 09:05 Dose: 1 applic Pantoprazole Sodium (Protonix Iv) 40 mg IVPUSH BID [facility] Last Admin: 01/12/20 09:05 Dose: 40 mg ASSESSMENT AND PLAN: s/p Acute Respiratory Failure V Tach Hyperkalemia improving Pneumonia Septic Shock Acute on Chronic Renal Failure Hypercalcemia LV Systolic/Diastolic Dysfunction COPD HTN DM Anemia Schizophrenia h/o CVA - continue antibiotics - f/u cultures - bolus IVF to keep CVP 8-12 - taper pressors to maintain MAP >65 - monitor urine output, creatinine - place on stress dose steroids as pt on chronic hydrocortisone - monitor lytes - monitor H/H - DVT/GI prophylaxis - continue ICU monitoring critical care time spent in reviewing chart, evaluating patient and formulating plan 35 min
[2020-01-12] MEDS ORDERED: SODIUM CHLORIDE 500 ML IV STA (11:29)
[2020-01-12] MEDS: HYDROCORTISONE SOD SUCCINATE 100 MG/2 ML VIAL IVPB SCH ×2 (12:11→18:23)
--- NOTE | 2020-01-12 13:21 | PN ---
Physical Exam: SUBJECTIVE: Patient seen and examined NAEON. Off vassopressin overnight. Not on sedation Intubated and following commands. Shakes head when asked about pain OBJECTIVE: Vital Signs Period Temp Pulse Resp BP Sys/Schaeffer Pulse Ox Last 24 Hr 95.6 F-97.9 F 60-76 10-20 92-123/47-66 97-100 GENERAL: intubated, following commands HEAD: Normal with no signs of trauma. EYES: PERRL, sclera anicteric, conjunctiva clear. No ptosis. ENT: Ears normal, nares patent. ETT in place NECK: Trachea midline, full range of motion, supple. LIJ in place with mild erythema. LUNGS: Breath sounds equal, clear to auscultation bilaterally, no wheezes, no crackles. Paced on cardiac monitoring. Left-sided implanted device w/o overlying erythema. Right-sided subcutaneous port in place. HEART: Regular rate and rhythm, S1, S2 without murmur, rub or gallop. ABDOMEN: Soft, nontender, nondistended, normoactive bowel sounds, no guarding, no rebound, no hepatosplenomegaly, no masses. G-J tube in place with no surrounding erythema. G-tube to gravity, draining dark yellow-green fluid. J- tube w/o feeds EXTREMITIES: 2+ pulses, warm, well-perfused, no edema. NEUROLOGICAL: following commands; able to stick out tongue, cough, 4/5 retail key holder strength b/l SKIN: Warm, dry, normal turgor, no rashes or lesions noted Laboratory Results - last 24 hr 01/11/20 01/11/20 01/11/20 02:50 13:40 13:40 WBC 9.6 RBC 2.47 L Hgb 7.9 L Hct 24.0 L MCV 97.3 H MCH 31.8 MCHC 32.7 RDW 19.9 H Plt Count 365 MPV 7.1 L Absolute Neuts (auto) Neutrophils % Lymphocytes % Monocytes % Eosinophils % Basophils % Nucleated RBC % Haptoglobin 308 Sodium 139 Potassium 5.1 Chloride 107 Carbon Dioxide 22 Anion Gap 10 BUN 118.2 H* Creatinine 3.4 H Est GFR (CKD-EPI)AfAm 15.27 Est GFR (CKD-EPI)NonAf 13.17 POC Glucometer Random Glucose 161 H Calcium 9.2 Phosphorus Magnesium Total Bilirubin AST ALT Alkaline Phosphatase Total Protein Albumin Random Vancomycin 02/18/20 02/18/20 02/19/20 16:18 22:16 05:30 WBC RBC Hgb Hct MCV MCH MCHC RDW Plt Count MPV Absolute Neuts (auto) Neutrophils % Lymphocytes % Monocytes % Eosinophils % Basophils % Nucleated RBC % Haptoglobin Sodium Potassium Chloride Carbon Dioxide Anion Gap BUN Creatinine Est GFR (CKD-EPI)AfAm Est GFR (CKD-EPI)NonAf POC Glucometer 120 129 Random Glucose Calcium Phosphorus Magnesium Total Bilirubin AST ALT Alkaline Phosphatase Total Protein Albumin Random Vancomycin 16.7 01/12/20 01/12/20 01/12/20 05:30 05:30 05:48 WBC 7.6 RBC 2.23 L Hgb 7.1 L Hct 22.0 L MCV 98.8 H MCH 32.0 MCHC 32.4 RDW 20.4 H Plt Count 316 MPV 7.0 L Absolute Neuts (auto) 6.0 Neutrophils % 78.3 Lymphocytes % 12.1 Monocytes % 8.2 Eosinophils % 1.1 D Basophils % 0.3 Nucleated RBC % 0 Haptoglobin Sodium 145 Potassium 4.4 Chloride 114 H Carbon Dioxide 20 L Anion Gap 10 BUN 95.5 H Creatinine 2.8 H Est GFR (CKD-EPI)AfAm 19.31 Est GFR (CKD-EPI)NonAf 16.66 POC Glucometer 119 Random Glucose 123 H Calcium 8.7 Phosphorus 4.1 Magnesium 3.2 H Total Bilirubin 0.3 AST 11 L ALT 15 Alkaline Phosphatase 130 H Total Protein 5.6 L Albumin 2.0 L Random Vancomycin 01/12/20 11:48 WBC RBC Hgb Hct MCV MCH MCHC RDW Plt Count MPV Absolute Neuts (auto) Neutrophils % Lymphocytes % Monocytes % Eosinophils % Basophils % Nucleated RBC % Haptoglobin Sodium Potassium Chloride Carbon Dioxide Anion Gap BUN Creatinine Est GFR (CKD-EPI)AfAm Est GFR (CKD-EPI)NonAf POC Glucometer 133 Random Glucose Calcium Phosphorus Magnesium Total Bilirubin AST ALT Alkaline Phosphatase Total Protein Albumin Random Vancomycin Active Medications Generic Name Dose Route Start Last Admin Trade Name Freq PRN Reason Stop Dose Admin Chlorhexidine Gluconate 1 applic 01/11/20 22:00 01/11/20 21:40 Hibiclens For Decolonization - TP 1 applic HS ISELA Administration Fludrocortisone Acetate 0.1 mg 01/12/20 11:01 Florinef - GT MoWeFr@1000 ISELA Heparin Sodium (Porcine) 5,000 unit 01/11/20 10:00 01/12/20 11:00 Heparin - SQ 5,000 unit BID ISELA Administration Hydrocortisone Sodium Succinate 100 mg 01/12/20 11:30 01/12/20 12:11 Solu-Cortef - IVPB 100 mg Q8H-IV ISELA Administration IV Flush 10 ml 01/11/20 04:01 Joseph-Cath Flush IVPUSH PRN PRN FLUSH Sodium Chloride 1,000 mls @ 125 mls/hr 01/10/20 23:45 01/11/20 23:54 Normal Saline - IV 125 mls/hr ASDIR ISELA Administration Amiodarone HCl/Dextrose 360 mg in 200 mls @ 16.667 mls/hr 01/11/20 05:00 01/12/20 05:20 Nexterone 360 Mg/200 Ml Bag IVPB Not Given ASDIR ISELA Protocol 0.5 MG/MIN Cefepime HCl 1 gm/ Dextrose 100 mls @ 100 mls/hr 01/11/20 10:45 01/12/20 09:04 IVPB 100 mls/hr BID ISELA Administration Protocol Propofol 1,000,000 mcg in 100 mls @ 1.985 mls/hr 01/11/20 19:30 01/12/20 08:00 Diprivan - IVPB 0 mcg/kg/min TITR ISELA 0 mls/hr Titration Protocol 5 MCG/KG/MIN Midazolam HCl 100 mg in 100 mls @ 1 mls/hr 01/12/20 06:15 01/12/20 08:10 Midazolam 100mg/100ml-0.9%Nacl IVPB 0 mg/hr TITR ISELA 0 mls/hr Titration Protocol 1 MG/HR Norepinephrine Bitartrate 8, 500 mls @ 18.75 mls/hr 01/12/20 07:15 01/12/20 12:00 000 mcg/ Dextrose IV 2 mcg/min TITR ISELA 7.5 mls/hr Titration Protocol 5 MCG/MIN Insulin Aspart 1 vial 01/11/20 11:00 01/12/20 11:51 Novolog Vial Sliding Scale - SQ Not Given TIDAC [facility] Protocol Mupirocin 1 applic 01/11/20 10:00 01/12/20 09:05 Bactroban Ointment (For Decolonization) - NS 01/16/20 09:59 1 applic BID ISELA Administration Pantoprazole Sodium 40 mg 01/11/20 22:00 01/12/20 09:05 Protonix Iv IVPUSH 40 mg BID ISELA Administration ASSESSMENT/PLAN: 69 year old female with PMH of CHF, schizophrenia, DM, CKD stage 3, hypothyroidism, GERD, previous cerebral infarct presents to the ED from [facility] with elevated potassium and change in mental status. Intubated due to AMS and inability to protect airway. Now extubated. Neuro -Extubated and able to follow commands -Hx of schizophrenia and previous cerebral infarct -Baseline mental status is unclear -HOLDing risperidone in light of torsades Cardiovascular -Hx of CHF, HTN, CAD -Underwent Vtach and few episodes of torsades, received 4gm Mg and started on amiodarone gtt -Echo (01/11): LVEF: 35%, severe global hypokinesis of LV, trace MR and TR, mild aortic valve thickening -MAP >65: levophed ~5mcg, titrating -goal CVP 8-12: IVF NS @ 125ml/hr -Monitor CVP reading Q6H; CVP goal 8-12 --will fluid bolus today d/t CVP ~6 -Hold antihypertensive medications in light of hypotension -Cont tele monitoring -Cardio consulted (Dr. Broussard) --Contacted pt's administrative program specialist Dr. Saab. Pacemaker has [employer] pacemaker, last interrogated in Jul 2019 and was unremarkable. --cw amiodaraone gtt Pulmonary -Acute respiratory failure --resolving -CXR: infiltrate and atelectasis in BL upper lobes that have improved, retrocardiac atelectasis/infiltrate -Cont IV abx(cefepime) empirically -Maintain O2 >90 Renal > US renal/bladder: neg for hydronephrosis, mild Left renal atrophy > UA(01/10/20): LE 3+, WBC 112 -Hx of CKD -Hyperkalemia 7.3-->4.4 s/p lokelma x1, calcium gluconate x2, 2L NS -Cr: 4.7-->2.8 -Nephro following (Dr. Blount): no need for emergent HD at this time, will cont to assess daily -Monitor urine output and strict I's & O's (1435cc from [place] overnight) -Cont IV NS @ 125ml/hr -IV abx ID > Sputum Cx(01/11/20): nonlactose fermenting GNR > UCX(01/11/20): lact fermenting GNR(50-60k CFU) -Septic shock likely / PNA vs UTI -Cont IV cefepime 1gm BID and vanc 1gm -ID following (Dr. Cummings) GI -Hx of GERD -Pt has G-J tube in place, monitor output (500cc gastric drainage overnight) -Will cont with tube feeds when stable -G-tube: will clamp; vent PRN for nausea Endo -Hx of TIIDM -ISS and BGM TIDAC Heme -Hgb: 13.2 --> 7.1 > Haptoglobin 308(normal) and LDH 147(normal): unlikely hemolysis - monitor - transfuse if Hgb < 7.0 Psych -Hx of schizophrenia -Holding risperidone in light of torsades episodes DVT ppx -Heparin SQ FEN -IV NS @ 125ml/hr -Monitor for hyperkalemia and DONIS -NPO, will consider starting J-tube feeds -indication for G-Jtube is unknown Dispo: -Will continue to monitor in ICU -Full code, sister is HCP Visit type - Emergency Visit Emergency Visit: No - New Patient This patient is new to me today: Yes Date on this admission: 01/12/20 - Critical Care Critical Care patient: Yes Total Critical Care Time (in minutes): 35 Critical Care Statement: The care of this patient involved high complexity d ecision making to prevent further life threatening deterioration of the patient's condition and/or to evaluate & treat vital organ system(s) failure or risk of failure. ATTENDING PHYSICIAN STATEMENT I saw and evaluated the patient. I reviewed the resident's note and discussed the case with the resident. I agree with the resident's findings and plan as documented. SUBJECTIVE: OBJECTIVE: ASSESSMENT AND PLAN:
--- NOTE | 2020-01-12 13:45 | PN ---
Progress Note, Physician History of Present Illness: Pt seen and examined at bedside. She was just extubated. - Current Medication List Current Medications: Active Medications Chlorhexidine Gluconate (Hibiclens For Decolonization -) 1 applic TP HS ISELA Last Admin: 01/11/20 21:40 Dose: 1 applic Fludrocortisone Acetate (Florinef -) 0.1 mg GT MoWeFr@1000 ISELA Heparin Sodium (Porcine) (Heparin -) 5,000 unit SQ BID SIELA Last Admin: 01/12/20 11:00 Dose: 5,000 unit Hydrocortisone Sodium Succinate (Solu-Cortef -) 100 mg IVPB Q8H-IV ISELA Last Admin: 01/12/20 12:11 Dose: 100 mg IV Flush (Joseph-Cath Flush) 10 ml IVPUSH PRN PRN PRN Reason: FLUSH Sodium Chloride (Normal Saline -) 1,000 mls @ 125 mls/hr IV ASDIR ISELA Last Admin: 01/11/20 23:54 Dose: 125 mls/hr Amiodarone HCl/Dextrose (Nexterone 360 Mg/200 Ml Bag) 360 mg in 200 mls @ 16.667 mls/hr IVPB ASDIR ISELA; Protocol Last Admin: 01/12/20 05:20 Dose: Not Given Cefepime HCl 1 gm/ Dextrose 100 mls @ 100 mls/hr IVPB BID ISELA; Protocol Last Admin: 01/12/20 09:04 Dose: 100 mls/hr Propofol (Diprivan -) 1,000,000 mcg in 100 mls @ 1.985 mls/hr IVPB TITR [facility]; Protocol Last Titration: 01/12/20 08:00 Dose: 0 mcg/kg/min, 0 mls/hr Midazolam HCl (Midazolam 100mg/100ml-0.9%Nacl) 100 mg in 100 mls @ 1 mls/hr IVPB TITR [facility]; Protocol Last Titration: 01/12/20 08:10 Dose: 0 mg/hr, 0 mls/hr Norepinephrine Bitartrate 8, (000 mcg/ Dextrose) 500 mls @ 18.75 mls/hr IV TITR [facility]; Protocol Last Titration: 01/12/20 12:00 Dose: 2 mcg/min, 7.5 mls/hr Insulin Aspart (Novolog Vial Sliding Scale -) 1 vial SQ TIDAC [facility]; Protocol Last Admin: 01/12/20 11:51 Dose: Not Given Mupirocin (Bactroban Ointment (For Decolonization) -) 1 applic NS BID ISELA Stop: 01/16/20 09:59 Last Admin: 01/12/20 09:05 Dose: 1 applic Pantoprazole Sodium (Protonix Iv) 40 mg IVPUSH BID [facility] Last Admin: 01/12/20 09:05 Dose: 40 mg - Objective Vital Signs: Vital Signs Temperature 97.8 F 01/12/20 09:00 Pulse Rate 75 01/12/20 12:00 Respiratory Rate 10 01/12/20 10:35 Blood Pressure 123/60 01/12/20 12:00 O2 Sat by Pulse Oximetry (%) 97 01/12/20 03:16 Constitutional: Yes: Calm Eyes: Yes: Conjunctiva Clear Cardiovascular: Yes: S1, S2 Respiratory: Yes: On Venti-Mask, Rhonchi Gastrointestinal: Yes: Soft Genitourinary: Yes: [place] Present Musculoskeletal: Yes: Muscle Weakness Edema: No Neurological: Yes: Lethargy Labs: CBC, BMP 01/12/20 05:30 01/12/20 05:30 - ....Imaging Chest X-ray: Report Reviewed Problem List - Problems (1) DONIS (acute kidney injury) Code(s): N17.9 - ACUTE KIDNEY FAILURE, UNSPECIFIED (2) Hyperkalemia Code(s): E87.5 - HYPERKALEMIA (3) CAD (coronary artery disease) Code(s): I25.10 - ATHSCL HEART DISEASE OF [place] CORONARY ARTERY W/O ANG PCTRS (4) CHF (congestive heart failure) Code(s): I50.9 - HEART FAILURE, UNSPECIFIED Assessment/Plan Current Medications Generic Name Dose Route Start Last Admin Trade Name Freq PRN Reason Stop Dose Admin Chlorhexidine Gluconate 1 applic 01/11/20 22:00 01/11/20 21:40 Hibiclens For Decolonization - TP 1 applic HS ISELA Administration Fludrocortisone Acetate 0.1 mg 01/12/20 11:01 Florinef - GT MoWeFr@1000 ISELA Heparin Sodium (Porcine) 5,000 unit 01/11/20 10:00 01/12/20 11:00 Heparin - SQ 5,000 unit BID ISEAL Administration Hydrocortisone Sodium Succinate 100 mg 01/12/20 11:30 01/12/20 12:11 Solu-Cortef - IVPB 100 mg Q8H-IV ISELA Administration IV Flush 10 ml 01/11/20 04:01 Joseph-Cath Flush IVPUSH PRN PRN FLUSH Sodium Chloride 1,000 mls @ 125 mls/hr 01/10/20 23:45 01/11/20 23:54 Normal Saline - IV 125 mls/hr ASDIR ISELA Administration Amiodarone HCl/Dextrose 360 mg in 200 mls @ 16.667 mls/hr 01/11/20 05:00 05:20 Nexterone 360 Mg/200 Ml Bag IVPB Not Given ASDIR ISELA Protocol 0.5 MG/MIN Cefepime HCl 1 gm/ Dextrose 100 mls @ 100 mls/hr 01/11/20 10:45 01/12/20 09: 04 IVPB 100 mls/hr BID ISELA Administration Protocol Propofol 1,000,000 mcg in 100 mls @ 1.985 mls/hr 01/11/20 19:30 01/12/20 08: 00 Diprivan - IVPB 0 mcg/kg/min TITR ISELA 0 mls/hr Titration Protocol 5 MCG/KG/MIN Midazolam HCl 100 mg in 100 mls @ 1 mls/hr 01/12/20 06:15 01/12/20 08:10 Midazolam 100mg/100ml-0.9%Nacl IVPB 0 mg/hr TITR ISELA 0 mls/hr Titration Protocol 1 MG/HR Norepinephrine Bitartrate 8, 500 mls @ 18.75 mls/hr 01/12/20 07:15 01/12/20 12:00 000 mcg/ Dextrose IV 2 mcg/min TITR ISELA 7.5 mls/hr Titration Protocol 5 MCG/MIN Insulin Aspart 1 vial 01/11/20 11:00 01/12/20 11:51 Novolog Vial Sliding Scale - SQ Not Given TIDAC ISELA Protocol Mupirocin 1 applic 01/11/20 10:00 01/12/20 09:05 Bactroban Ointment (For Decolonization) - NS 01/16/20 09:59 1 applic BID ISELA Administration Pantoprazole Sodium 40 mg 01/11/20 22:00 01/12/20 09:05 Protonix Iv IVPUSH 40 mg BID ISELA Administration Impression 1. DONIS 2. hyperkalemia 3. hypercalcemia 4. hx cva 5. hx htn 6. dm 7. resp failure requiring intubation Plan - pt extubated - renal function improving - repeat labs in am - monitor urine output - discussed with ICU team - calcium improved - renal ultrasound reviewed
[2020-01-12] MEDS: SODIUM CHLORIDE 1,000 ML IV SCH (15:30)
--- NOTE | 2020-01-12 19:05 | PN ---
Progress Note, Physician Chief Complaint: EXTUBATED NO COMPLAINTS OF PAIN WHEN QUESTIONED AFEBRILE BREATHING NON-LABORED - Current Medication List Current Medications: Active Medications Chlorhexidine Gluconate (Hibiclens For Decolonization -) 1 applic TP HS ISELA Last Admin: 01/11/20 21:40 Dose: 1 applic Fludrocortisone Acetate (Florinef -) 0.1 mg GT DAILY ISELA Heparin Sodium (Porcine) (Heparin -) 5,000 unit SQ BID ISELA Last Admin: 01/12/20 11:00 Dose: 5,000 unit Hydrocortisone Sodium Succinate (Solu-Cortef -) 100 mg IVPB Q8H-IV ISELA Last Admin: 01/12/20 18:23 Dose: 100 mg IV Flush (Joseph-Cath Flush) 10 ml IVPUSH PRN PRN PRN Reason: FLUSH Sodium Chloride (Normal Saline -) 1,000 mls @ 125 mls/hr IV ASDIR ISELA Last Admin: 01/12/20 15:30 Dose: 125 mls/hr Amiodarone HCl/Dextrose (Nexterone 360 Mg/200 Ml Bag) 360 mg in 200 mls @ 16.667 mls/hr IVPB ASDIR ISELA; Protocol Last Admin: 01/12/20 15:29 Dose: 16.667 mls/hr Cefepime HCl 1 gm/ Dextrose 100 mls @ 100 mls/hr IVPB BID ISELA; Protocol Last Admin: 01/12/20 09:04 Dose: 100 mls/hr Midazolam HCl (Midazolam 100mg/100ml-0.9%Nacl) 100 mg in 100 mls @ 1 mls/hr IVPB TITR [facility]; Protocol Last Titration: 01/12/20 08:10 Dose: 0 mg/hr, 0 mls/hr Norepinephrine Bitartrate 8, (000 mcg/ Dextrose) 500 mls @ 18.75 mls/hr IV TITR [facility]; Protocol Last Titration: 01/12/20 15:00 Dose: 0 mcg/min, 0 mls/hr Insulin Aspart (Novolog Vial Sliding Scale -) 1 vial SQ TIDAC [facility]; Protocol Last Admin: 01/12/20 17:47 Dose: Not Given Mupirocin (Bactroban Ointment (For Decolonization) -) 1 applic NS BID ISELA Stop: 01/16/20 09:59 Last Admin: 01/12/20 09:05 Dose: 1 applic Pantoprazole Sodium (Protonix Iv) 40 mg IVPUSH BID ISELA Last Admin: 01/12/20 09:05 Dose: 40 mg - Objective Vital Signs: Vital Signs Temperature 97.6 F 01/12/20 15:00 Pulse Rate 75 01/12/20 15:00 Respiratory Rate 14 01/12/20 15:00 Blood Pressure 110/59 L 01/12/20 15:00 O2 Sat by Pulse Oximetry (%) 97 01/12/20 03:16 Constitutional: Yes: No Distress Cardiovascular: Yes: Regular Rate and Rhythm, S1, S2 Respiratory: Yes: Diminished Gastrointestinal: Yes: Normal Bowel Sounds, Soft Labs: CBC, BMP 01/12/20 05:30 01/12/20 05:30 Assessment/Plan RESPIRATORY FAILURE S/P EXTUBATION UTI R/O SEPSIS SECONDARY TO UTI S/P TORSADES ANTIBIOTIC ALLERGIES AWAIT C/S CONTINUE EMPIRIC VANCOMYCIN CEFEPIME
[2020-01-12] MEDS: CHLORHEXIDINE GLUCONATE 4% CLEANSER FOR DECOLONIZATION TP SCH (22:21)
[2020-01-13] MEDS: HYDROCORTISONE SOD SUCCINATE 100 MG/2 ML VIAL IVPB SCH ×3 (02:13→18:22)
[2020-01-13] MEDS ORDERED: risperiDONE 1 MG TABLET PO ONE (03:21)
[2020-01-13] MEDS: AMIODARONE IN DEXTROSE,ISO-OSM 360 MG/200 ML BAG IVPB SCH ×2 (03:29→04:52)
[2020-01-13] MEDS: MIDAZOLAM IN 0.9 % SOD.CHLORID 100 MG/100 ML PLAST..BAG IVPB SCH (06:17)
[2020-01-13 06:22] LABS: BASO % 0.2 % (0-2.0); HEMATOCRIT 21.1 % (32.4-45.2); LYMPH % 3.6 % (8-40); MCHC 32.9 g/dl (32.0-36.0); MEAN CELL VOLUME 97.3 fl (80-96); MEAN PLT VOLUME 7.3 fl (7.5-11.1); MONO % 2.7 % (3.8-10.2); NEUT % 93.5 % (42.8-82.8); PLATELET COUNT 287 K/MM3 (134-434); RBC 2.17 M/mm3 (3.60-5.2); RDW 20.7 % (11.6-15.6); WHITE BLOOD COUNT 11.3 K/mm3 (4.0-10.0)
[2020-01-13] MEDS: INSULIN SLIDING SCALE (NOVOLOG) 1 VIAL SQ SCH ×3 (06:30→17:16)
[2020-01-13 06:40] LABS: HEMOGLOBIN 6.9 GM/dL (10.7-15.3)
[2020-01-13 06:52] LABS: BILIRUBIN,TOTAL 0.6 mg/dL (0.2-1); BLOOD UREA NITROGEN 74.4 mg/dL (7-18); CREATININE 2.4 mg/dL (0.55-1.3); MAGNESIUM 2.7 mg/dL (1.8-2.4); POTASSIUM 4.4 mmol/L (3.5-5.1)
[2020-01-13 09:29] LABS: ANISOCYTOSIS 2+; MACROCYTOSIS 2+; PLATELET ESTIMATE NORMAL
[2020-01-13] MEDS ORDERED: DEXTROSE 5%-WATER 100 ML IVPB ONE ×2 (09:38→21:00)
[2020-01-13] MEDS ORDERED: CEFEPIME HCL 1 GM VIAL (RESTRICTED TO ID) ONE ×2 (09:38→21:00)
[2020-01-13] MEDS ORDERED: FLUDROCORTISONE ACETATE 0.1 MG TABLET (FP) GT SCH (10:00)
[2020-01-13 10:10] LABS: PARATHYROID HORM INTACT 94 pg/mL (15-65)
[2020-01-13] MEDS: CEFEPIME 1 GM in DEXTROSE 5%-WATER 100 ML IVPB SCH ×2 (10:30→22:59)
[2020-01-13] MEDS: PANTOPRAZOLE SODIUM 40 MG VIAL IVPUSH SCH ×2 (10:30→23:01)
[2020-01-13] MEDS: MUPIROCIN 2% TOPICAL OINTMENT FOR DECOLONIZATION NS SCH ×2 (10:30→22:42)
[2020-01-13] MEDS: HEPARIN NA (PORCINE) 5,000 UNITS/ML 1ML VIAL SQ SCH ×2 (10:30→22:58)
--- NOTE | 2020-01-13 11:17 | PN ---
Progress Note (short form) - Note Progress Note: Extubated Awake and alert confused Wants to eat wants to remove de la garza Vital Signs - 24 hr 01/12/20 01/12/20 01/12/20 12:00 13:00 15:00 Temperature 97.8 F 97.6 F Pulse Rate 75 75 75 Respiratory 14 14 Rate Blood Pressure 123/60 123/60 110/59 L O2 Sat by Pulse Oximetry (%) 01/12/20 01/12/20 01/12/20 17:00 19:00 20:00 Temperature 97.4 F L Pulse Rate 75 75 75 Respiratory 16 19 14 Rate Blood Pressure 116/63 105/49 L 108/57 L O2 Sat by Pulse 98 96 Oximetry (%) 01/12/20 01/12/20 01/12/20 21:00 22:00 23:00 Temperature 94.8 F L 94.8 F L 95.2 F L Pulse Rate 82 75 75 Respiratory 16 16 13 Rate Blood Pressure 116/58 L 119/65 116/78 O2 Sat by Pulse 96 Oximetry (%) 01/13/20 01/13/20 01/13/20 00:00 01:00 02:00 Temperature 97.3 F L 97.5 F L Pulse Rate 75 75 81 Respiratory 15 16 10 Rate Blood Pressure 135/65 105/52 L 124/66 O2 Sat by Pulse Oximetry (%) 01/13/20 01/13/20 01/13/20 03:00 03:06 03:20 Temperature 97.3 F L Pulse Rate 87 82 Respiratory 16 Rate Blood Pressure 116/53 L O2 Sat by Pulse 95 95 Oximetry (%) 01/13/20 01/13/20 01/13/20 03:59 04:00 06:00 Temperature 97.3 F L 98 F Pulse Rate 86 81 82 Respiratory 20 21 H Rate Blood Pressure 125/72 123/53 L O2 Sat by Pulse 96 96 Oximetry (%) 01/13/20 10:00 Temperature 97.6 F Pulse Rate 75 Respiratory 17 Rate Blood Pressure 129/66 O2 Sat by Pulse Oximetry (%) Current Medications Generic Name Dose Route Start Last Admin Trade Name Freq PRN Reason Stop Dose Admin Chlorhexidine Gluconate 1 applic 01/11/20 22:00 01/12/20 22:21 Hibiclens For Decolonization - TP 1 applic HS ISELA Administration Fludrocortisone Acetate 0.1 mg 01/13/20 10:00 01/13/20 10:29 Florinef - GT 0.1 mg DAILY ISELA Administration Heparin Sodium (Porcine) 5,000 unit 01/11/20 10:00 01/13/20 10:30 Heparin - SQ 5,000 unit BID ISELA Administration Hydrocortisone Sodium Succinate 100 mg 01/12/20 11:30 01/13/20 10:30 Solu-Cortef - IVPB 100 mg Q8H-IV ISELA Administration IV Flush 10 ml 01/11/20 04:01 Joseph-Cath Flush IVPUSH PRN PRN FLUSH Amiodarone HCl/Dextrose 360 mg in 200 mls @ 16.667 mls/hr 01/11/20 05:00 04:52 Nexterone 360 Mg/200 Ml Bag IVPB Not Given ASDIR ISELA Protocol 0.5 MG/MIN Cefepime HCl 1 gm/ Dextrose 100 mls @ 100 mls/hr 01/11/20 10:45 01/13/20 10: 30 IVPB 100 mls/hr BID ISELA Administration Protocol Norepinephrine Bitartrate 8, 500 mls @ 18.75 mls/hr 01/12/20 07:15 01/12/20 15:00 000 mcg/ Dextrose IV 0 mcg/min TITR ISELA 0 mls/hr Titration Protocol 5 MCG/MIN Insulin Aspart 1 vial 01/11/20 11:00 01/13/20 06:30 Novolog Vial Sliding Scale - SQ 2 units TIDAC ISELA Administration Protocol Mupirocin 1 applic 01/11/20 10:00 01/13/20 10:30 Bactroban Ointment (For Decolonization) - NS 01/16/20 09:59 1 applic BID ISELA Administration Pantoprazole Sodium 40 mg 01/11/20 22:00 01/13/20 10:30 Protonix Iv IVPUSH 40 mg BID ISELA Administration Laboratory Results - last 24 hr 01/12/20 01/12/20 01/12/20 05:30 11:48 17:23 WBC RBC Hgb Hct MCV MCH MCHC RDW Plt Count MPV Absolute Neuts (auto) Neutrophils % Neutrophils % (Manual) Band Neutrophils % Lymphocytes % Lymphocytes % (Manual) Monocytes % Monocytes % (Manual) Eosinophils % Eosinophils % (Manual) Basophils % Basophils % (Manual) Myelocytes % (Man) Promyelocytes % (Man) Blast Cells % (Manual) Nucleated RBC % Metamyelocytes Hypochromia Platelet Estimate Polychromasia Poikilocytosis Basophilic Stippling Anisocytosis Microcytosis Macrocytosis Sodium Potassium Chloride Carbon Dioxide Anion Gap BUN Creatinine Est GFR (CKD-EPI)AfAm Est GFR (CKD-EPI)NonAf POC Glucometer 133 101 Random Glucose Calcium 8.9 Phosphorus Magnesium Total Bilirubin AST ALT Alkaline Phosphatase Total Protein Albumin PTH Intact 94 H PTH Intact Intraop 0 m Blood Type Antibody Screen Crossmatch 01/13/20 01/13/20 01/13/20 05:00 05:00 05:00 WBC 11.3 H RBC 2.17 L Hgb 6.9 L* Hct 21.1 L MCV 97.3 H MCH 32.0 MCHC 32.9 RDW 20.7 H Plt Count 287 MPV 7.3 L Absolute Neuts (auto) 10.6 H Neutrophils % 93.5 H Neutrophils % (Manual) 94.0 H Band Neutrophils % 1.0 Lymphocytes % 3.6 L D Lymphocytes % (Manual) 4.0 L Monocytes % 2.7 L Monocytes % (Manual) 1 L Eosinophils % 0.0 D Eosinophils % (Manual) 0.0 Basophils % 0.2 Basophils % (Manual) 0.0 Myelocytes % (Man) 0 Promyelocytes % (Man) 0 Blast Cells % (Manual) 0 Nucleated RBC % 0 Metamyelocytes 0 Hypochromia 0 Platelet Estimate Normal Polychromasia 1+ Poikilocytosis 0 Basophilic Stippling 1+ Anisocytosis 2+ Microcytosis 2+ Macrocytosis 2+ Sodium 143 Potassium 4.4 Chloride 116 H Carbon Dioxide 20 L Anion Gap 7 L BUN 74.4 H Creatinine 2.4 H Est GFR (CKD-EPI)AfAm 23.26 Est GFR (CKD-EPI)NonAf 20.07 POC Glucometer Random Glucose 109 H Calcium 9.0 Phosphorus 4.0 Magnesium 2.7 H Total Bilirubin 0.6 AST 14 L ALT 15 Alkaline Phosphatase 134 H Total Protein 6.0 L Albumin 2.0 L PTH Intact PTH Intact Intraop 0 m Blood Type B NEGATIVE Antibody Screen Negative Crossmatch See Detail 01/13/20 05:37 WBC RBC Hgb Hct MCV MCH MCHC RDW Plt Count MPV Absolute Neuts (auto) Neutrophils % Neutrophils % (Manual) Band Neutrophils % Lymphocytes % Lymphocytes % (Manual) Monocytes % Monocytes % (Manual) Eosinophils % Eosinophils % (Manual) Basophils % Basophils % (Manual) Myelocytes % (Man) Promyelocytes % (Man) Blast Cells % (Manual) Nucleated RBC % Metamyelocytes Hypochromia Platelet Estimate Polychromasia Poikilocytosis Basophilic Stippling Anisocytosis Microcytosis Macrocytosis Sodium Potassium Chloride Carbon Dioxide Anion Gap BUN Creatinine Est GFR (CKD-EPI)AfAm Est GFR (CKD-EPI)NonAf POC Glucometer 186 Random Glucose Calcium Phosphorus Magnesium Total Bilirubin AST ALT Alkaline Phosphatase Total Protein Albumin PTH Intact PTH Intact Intraop 0 m Blood Type Antibody Screen Crossmatch Microbiology 01/11/20 01:30 Gram Stain - Final Sputum - Expectorated Sputum Culture - Preliminary Serratia Marcescens Lactose Fermenting Neg Bacilli 01/11/20 01:30 Urine Culture - Final Urine - Urine - Catheterized Klebsiella Oxytoca 01/11/20 02:50 Blood Culture - Preliminary Blood - Peripheral Venous NO GROWTH OBTAINED AFTER 48 HOURS, INCUBATION TO CONTINUE FOR 3 DAYS. 01/11/20 02:50 Blood Culture - Preliminary Blood - Peripheral Venous NO GROWTH OBTAINED AFTER 48 HOURS, INCUBATION TO CONTINUE FOR 3 DAYS. Intake & Output 01/10/20 01/11/20 01/12/20 01/13/20 23:59 23:59 23:59 23:59 Intake Total 2944 2400.7 900.4 Output Total 2835 1660 600 Balance 109 740.7 300.4 Weight 161 lb 145 lb 14.4 oz 154 lb 162 lb 11.2 oz S1 S2 RRR Lungs clear Abd- soft, NT, GT/JT NO edema de la garza PPM Rt portacath PLAN Acute anemia -- check stool -- transfuse today Acute respiratory failure -- extubated -- on O2 Sepsis -- improving -- sputum cultures noted -- on Cefepime Adrenal insufficiency -- on Florinef -- stress dose steroids h/o aspiration pneumonia -- had a large hiatal hernia -- has both G and J tube -- feeding and meds through J tube and intermittent suctioning through G tube -- swallow eval for possible pleasure feeds-- very small bites just for taste only Acute renal failure -- resolved -- renal function towards baseline Problem List - Problems (1) DONIS (acute kidney injury) Code(s): N17.9 - ACUTE KIDNEY FAILURE, UNSPECIFIED (2) Acute renal failure superimposed on chronic kidney disease Code(s): N17.9 - ACUTE KIDNEY FAILURE, UNSPECIFIED; N18.9 - CHRONIC KIDNEY DISEASE, UNSPECIFIED (3) Diabetes mellitus Code(s): E11.9 - TYPE 2 DIABETES MELLITUS WITHOUT COMPLICATIONS (4) HTN (hypertension) Code(s): I10 - ESSENTIAL (PRIMARY) HYPERTENSION (5) Hyperkalemia Code(s): E87.5 - HYPERKALEMIA (6) Hypothyroidism Code(s): E03.9 - HYPOTHYROIDISM, UNSPECIFIED (7) Torsades de pointes Code(s): I47.2 - VENTRICULAR TACHYCARDIA
--- NOTE | 2020-01-13 11:53 | PN ---
Teaching Attending Note Name of Resident: China Arroyo ATTENDING PHYSICIAN STATEMENT I saw and evaluated the patient. I reviewed the resident's note and discussed the case with the resident. I agree with the resident's findings and plan as documented. SUBJECTIVE: Pt seen and examined in the ICU. Extubated yesterday without incident. Tearful this AM but states she feels fine. OBJECTIVE: Vital Signs Period Temp Pulse Resp BP Sys/Schaeffer Pulse Ox Last 24 Hr 94.8 F-98 F 75-87 10-21 105-135/49-78 95-98 Intake & Output 01/10/20 01/11/20 01/12/20 01/13/20 23:59 23:59 23:59 23:59 Intake Total 2944 2400.7 900.4 Output Total 2835 1660 600 Balance 109 740.7 300.4 Weight 73.028 kg 66.179 kg 69.853 kg 73.799 kg Gen: NAD at rest Heart: RRR Lung: decreased breath sounds at the bases Abd: soft, nontender Ext: no edema CBC, BMP 01/13/20 05:00 01/13/20 05:00 Active Medications Chlorhexidine Gluconate (Hibiclens For Decolonization -) 1 applic TP HS [facility] Last Admin: 01/12/20 22:21 Dose: 1 applic Fludrocortisone Acetate (Florinef -) 0.1 mg GT DAILY [facility] Last Admin: 01/13/20 10:29 Dose: 0.1 mg Heparin Sodium (Porcine) (Heparin -) 5,000 unit SQ BID [facility] Last Admin: 01/13/20 10:30 Dose: 5,000 unit Hydrocortisone Sodium Succinate (Solu-Cortef -) 50 mg IVPB Q8H-IV [facility] IV Flush (Joseph-Cath Flush) 10 ml IVPUSH PRN PRN PRN Reason: FLUSH Amiodarone HCl/Dextrose (Nexterone 360 Mg/200 Ml Bag) 360 mg in 200 mls @ 16.667 mls/hr IVPB ASDIR [facility]; Protocol Last Admin: 01/13/20 04:52 Dose: Not Given Cefepime HCl 1 gm/ Dextrose 100 mls @ 100 mls/hr IVPB BID [facility]; Protocol Last Admin: 01/13/20 10:30 Dose: 100 mls/hr Norepinephrine Bitartrate 8, (000 mcg/ Dextrose) 500 mls @ 18.75 mls/hr IV TITR [facility]; Protocol Last Titration: 01/12/20 15:00 Dose: 0 mcg/min, 0 mls/hr Insulin Aspart (Novolog Vial Sliding Scale -) 1 vial SQ TIDAC [facility]; Protocol Last Admin: 01/13/20 06:30 Dose: 2 units Mupirocin (Bactroban Ointment (For Decolonization) -) 1 applic NS BID [facility] Stop: 01/16/20 09:59 Last Admin: 01/13/20 10:30 Dose: 1 applic Pantoprazole Sodium (Protonix Iv) 40 mg IVPUSH BID [facility] Last Admin: 01/13/20 10:30 Dose: 40 mg Risperidone (Risperdal Oral Solution -) 2 mg GT HS [facility] Risperidone (Risperdal Oral Solution -) 3 mg GT DAILY [facility] ASSESSMENT AND PLAN: s/p Acute Respiratory Failure V Tach Hyperkalemia improving Pneumonia Septic Shock Acute on Chronic Renal Failure Hypercalcemia LV Systolic/Diastolic Dysfunction COPD HTN DM Anemia Schizophrenia h/o CVA - amiodarone per cardiology - continue antibiotics - monitor urine output, creatinine - taper stress dose steroids - resume seroquel - monitor QTc - monitor lytes - monitor H/H - transfuse PRBC - d/c central line - OOB to chair - enteral feeds - DVT/GI prophylaxis - can monitor on telemetry
--- NOTE | 2020-01-13 11:59 | PN ---
Progress Note (short form) - Note Progress Note: s: no cp sob palps dizzy Current Medications Generic Name Dose Route Start Last Admin Trade Name Freq PRN Reason Stop Dose Admin Chlorhexidine Gluconate 1 applic 01/11/20 22:00 01/12/20 22:21 Hibiclens For Decolonization - TP 1 applic HS [facility] Administration Fludrocortisone Acetate 0.1 mg 01/13/20 10:00 01/13/20 10:29 Florinef - GT 0.1 mg DAILY [facility] Administration Heparin Sodium (Porcine) 5,000 unit 01/11/20 10:00 01/13/20 10:30 Heparin - SQ 5,000 unit BID [facility] Administration Hydrocortisone Sodium Succinate 50 mg 01/13/20 11:31 Solu-Cortef - IVPB Q8H-IV [facility] IV Flush 10 ml 01/11/20 04:01 Joseph-Cath Flush IVPUSH PRN PRN FLUSH Amiodarone HCl/Dextrose 360 mg in 200 mls @ 16.667 mls/hr 01/11/20 05:00 04:52 Nexterone 360 Mg/200 Ml Bag IVPB Not Given ASDIR [facility] Protocol 0.5 MG/MIN Cefepime HCl 1 gm/ Dextrose 100 mls @ 100 mls/hr 01/11/20 10:45 01/13/20 10: 30 IVPB 100 mls/hr BID [facility] Administration Protocol Norepinephrine Bitartrate 8, 500 mls @ 18.75 mls/hr 01/12/20 07:15 01/12/20 15:00 000 mcg/ Dextrose IV 0 mcg/min TITR [facility] 0 mls/hr Titration Protocol 5 MCG/MIN Insulin Aspart 1 vial 01/11/20 11:00 01/13/20 06:30 Novolog Vial Sliding Scale - SQ 2 units TIDAC [facility] Administration Protocol Mupirocin 1 applic 01/11/20 10:00 01/13/20 10:30 Bactroban Ointment (For Decolonization) - NS 01/16/20 09:59 1 applic BID [facility] Administration Pantoprazole Sodium 40 mg 01/11/20 22:00 01/13/20 10:30 Protonix Iv IVPUSH 40 mg BID [facility] Administration Risperidone 2 mg 01/13/20 22:00 Risperdal Oral Solution - GT HS [facility]LA Risperidone 3 mg 01/14/20 10:00 Risperdal Oral Solution - GT DAILY [facility] Vital Signs Temp 97.6 F 01/13/20 10:00 Pulse 75 01/13/20 10:00 Resp 17 01/13/20 10:00 BP 129/66 01/13/20 10:00 Pulse Ox 96 01/13/20 06:00 Intake & Output 01/12/20 01/12/20 01/13/20 11:59 23:59 11:59 Intake Total 1192.7 1208 900.4 Output Total 600 1060 600 Balance 592.7 148 300.4 Weight 154 lb 14.4 oz 154 lb 162 lb 11.2 oz Intake: IV 1142.7 1108 200.4 Amiodarone 183.7 200.4 DIPRIVAN - 1,000,000 mcg 28 In 100 ml @ 5 MCG/KG/MIN 1.985 mls/hr IVPB TITR [facility] Rx#:[id number] Levophed - 8,000 Mcg In 108 D5w - 492 ml @ 5 MCG/MIN 18.75 mls/hr IV TITR [facility] Rx#:[id number] Normal Saline - 1,000 ml 875 1000 @ 125 mls/hr IV ASDIR [facility] Rx#:[id number] Pitressin - 50 Units In 28 Normal Saline - 97.5 ml @ 2 UNITS/HR 4 mls/hr IVPB ASDIR [facility] Rx#: [id number] Versed - 100 mg In Normal 28 Saline - 100 ml @ 1 MG/ HR 1 mls/hr IVPB TITR [facility] Rx#:[id number] IVPB 50 100 100 Oral 0 Tube Feeding 360 Tube Irrigant 240 Output: Gastric Drainage 100 160 Urine 500 900 600 Lozano 500 900 600 Other: Voiding Method Indwelling Catheter Indwelling Catheter Bowel Movement No No No Height 5 ft 3 in Body Mass Index (BMI) 27.3 Weight Measurement Method Built in [facility] Built in [facility] Constitutional: Yes: No Distress, Calm Eyes: Yes: Conjunctiva Clear, EOM Intact HENT: Yes: Atraumatic Neck: Yes: Supple, Trachea Midline Respiratory: cta bl nl eff Gastrointestinal: Yes: Normal Bowel Sounds, Soft Cardiovascular: Yes: Regular Rate and Rhythm JVD: No PMI: Non-Displaced Extremities: No: Cold Edema: No Integumentary: No: Jaundice Neurological: alert, appropriate Psychiatric: No: Agitated Laboratory Last Values WBC 11.3 K/mm3 (4.0-10.0) H 01/13/20 05:00 RBC 2.17 M/mm3 (3.60-5.2) L 01/13/20 05:00 Hgb 6.9 GM/dL (10.7-15.3) L* 01/13/20 05:00 Hct 21.1 % (32.4-45.2) L 01/13/20 05:00 MCV 97.3 fl (80-96) H 01/13/20 05:00 MCH 32.0 pg (25.7-33.7) 01/13/20 05:00 MCHC 32.9 g/dl (32.0-36.0) 01/13/20 05:00 RDW 20.7 % (11.6-15.6) H 01/13/20 05:00 Plt Count 287 K/MM3 (134-434) 01/13/20 05:00 MPV 7.3 fl (7.5-11.1) L 01/13/20 05:00 Absolute Neuts (auto) 10.6 K/mm3 (1.5-8.0) H 01/13/20 05:00 Neutrophils % 93.5 % (42.8-82.8) H 01/13/20 05:00 Neutrophils % (Manual) 94.0 % (42.8-82.8) H 01/13/20 05:00 Band Neutrophils % 1.0 % 01/13/20 05:00 Lymphocytes % 3.6 % (8-40) L D 01/13/20 05:00 Lymphocytes % (Manual) 4.0 % (8-40) L 01/13/20 05:00 Monocytes % 2.7 % (3.8-10.2) L 01/13/20 05:00 Monocytes % (Manual) 1 % (3.8-10.2) L 01/13/20 05:00 Eosinophils % 0.0 % (0-4.5) D 01/13/20 05:00 Eosinophils % (Manual) 0.0 % (0-4.5) 01/13/20 05:00 Basophils % 0.2 % (0-2.0) 01/13/20 05:00 Basophils % (Manual) 0.0 % (0-2.0) 01/13/20 05:00 Myelocytes % (Man) 0 % (0-2) 01/13/20 05:00 Promyelocytes % (Man) 0 % (0-2) 01/13/20 05:00 Blast Cells % (Manual) 0 % (0-0) 01/13/20 05:00 Nucleated RBC % 0 % (0-0) 01/13/20 05:00 Metamyelocytes 0 % (0-2) 01/13/20 05:00 Hypochromia 0 01/13/20 05:00 Platelet Estimate Normal 01/13/20 05:00 Polychromasia 1+ 01/13/20 05:00 Poikilocytosis 0 01/13/20 05:00 Basophilic Stippling 1+ 01/13/20 05:00 Anisocytosis 2+ 01/13/20 05:00 Microcytosis 2+ 01/13/20 05:00 Macrocytosis 2+ 01/13/20 05:00 Haptoglobin 308 mg/dL (37-355) 01/11/20 02:50 Anticoagulation Therapy No Result Required. 01/11/20 06:00 Puncture Site Right radial 01/11/20 06:00 Patient Temperature 95.3 01/11/20 03:28 ABG pH 7.31 (7.35-7.45) L 01/11/20 06:00 ABG pCO2 at Pt Temp 40.3 mmHg (35-45) 01/11/20 06:00 ABG pO2 at Pt Temp 391 mmHg (80-100) H 01/11/20 06:00 ABG HCO3 19.7 mmol/L (22-27) L 01/11/20 06:00 ABG O2 Sat (Measured) 99.8 % (95-98) H 01/11/20 06:00 ABG O2 Content 12.7 % vol 01/11/20 06:00 ABG Base Excess -5.6 meq/l (-2-2) L 01/11/20 06:00 Doug Test Positive 01/11/20 06:00 O2 Delivery Device Vent 01/11/20 06:00 Oxygen Flow Rate 100% 01/11/20 06:00 Vent Mode No Result Required. 01/11/20 06:00 Vent Rate 14 01/11/20 06:00 Mechanical Rate No Result Required. 01/11/20 06:00 PEEP 5.0 cmH2O 01/11/20 06:00 Pressure Support Vent 450 01/11/20 06:00 Sodium 143 mmol/L (136-145) 01/13/20 05:00 Potassium 4.4 mmol/L (3.5-5.1) 01/13/20 05:00 Chloride 116 mmol/L (98-107) H 01/13/20 05:00 Carbon Dioxide 20 mmol/L (21-32) L 01/13/20 05:00 Anion Gap 7 MMOL/L (8-16) L 01/13/20 05:00 BUN 74.4 mg/dL (7-18) H 01/13/20 05:00 Creatinine 2.4 mg/dL (0.55-1.3) H 01/13/20 05:00 Est GFR (CKD-EPI)AfAm 23.26 01/13/20 05:00 Est GFR (CKD-EPI)NonAf 20.07 01/13/20 05:00 POC Glucometer 186 UNITS (80-120) 01/13/20 05:37 Random Glucose 109 mg/dL (74-106) H 01/13/20 05:00 Lactic Acid 1.8 mmol/L (0.4-2.0) 01/11/20 02:50 Calcium 9.0 mg/dL (8.5-10.1) 01/13/20 05:00 Phosphorus 4.0 mg/dL (2.5-4.9) 01/13/20 05:00 Magnesium 2.7 mg/dL (1.8-2.4) H 01/13/20 05:00 Total Bilirubin 0.6 mg/dL (0.2-1) 01/13/20 05:00 AST 14 U/L (15-37) L 01/13/20 05:00 ALT 15 U/L (13-61) 01/13/20 05:00 Alkaline Phosphatase 134 U/L (45-117) H 01/13/20 05:00 LD Total 147 U/L (84-246) 01/11/20 02:50 Creatine Kinase 25 U/L (26-192) L 01/10/20 19:20 Troponin I < 0.02 ng/ml (0.00-0.05) 01/11/20 02:50 Total Protein 6.0 g/dl (6.4-8.2) L 01/13/20 05:00 Albumin 2.0 g/dl (3.4-5.0) L 01/13/20 05:00 TSH 3.89 uIU/ml (0.358-3.74) H 01/11/20 05:30 PTH Intact 94 pg/mL (15-65) H 01/12/20 05:30 PTH Intact Intraop 0 m (.) 01/12/20 05:30 Urine Color Yellow 01/11/20 02:50 Urine Appearance Cloudy 01/11/20 02:50 Urine pH 5.0 (5.0-8.0) 01/11/20 02:50 Ur Specific [place] 1.016 (1.010-1.035) 01/11/20 02:50 Urine Protein Negative (NEGATIVE) 01/11/20 02:50 Urine Glucose (UA) Negative (NEGATIVE) 01/11/20 02:50 Urine Ketones Negative (NEGATIVE) 01/11/20 02:50 Urine Blood Negative (NEGATIVE) 01/11/20 02:50 Urine Nitrite Negative (NEGATIVE) 01/11/20 02:50 Urine Bilirubin Negative (NEGATIVE) 01/11/20 02:50 Urine Urobilinogen 0.2 mg/dL (0.2-1.0) 01/11/20 02:50 Ur Leukocyte Esterase 2+ (NEGATIVE) H 01/11/20 02:50 Urine WBC (Auto) 14 /hpf (0-5) 01/11/20 02:50 Urine RBC (Auto) 2 /hpf (0-4) 01/11/20 02:50 Urine Casts (Auto) 19 /lpf (0-8) 01/11/20 02:50 U Pathogenic Cast Auto None /lpf (NEGATIVE) 01/11/20 02:50 U Epithel Cells (Auto) 11.8 /HPF (0-5/HPF) 01/11/20 02:50 U Sm Round Cell (Auto) None 01/11/20 02:50 Urine Bacteria (Auto) 97.4 /hpf (NEGATIVE) 01/11/20 02:50 Ur Random Creatinine 56.0 mg/dL (30-150) 01/11/20 02:50 Ur Random Sodium 49 MMOL/L (40-220) 01/11/20 02:50 Ur Random Potassium 50.0 MMOL/L (25-125) 01/11/20 02:50 Random Vancomycin 16.7 ug/ml (5-26) 01/12/20 05:30 Blood Type B NEGATIVE 01/13/20 05:00 Antibody Screen Negative 01/13/20 05:00 Crossmatch See Detail 01/13/20 05:00 Assessment/Plan EKG: sinus, LVH, no ischemic changes, QTc 439 ms tele: ap-vs, ap-svp programmatic tv echo 12/2019 severe global hypokinesis of LV, EF 35%, tr MR, tr TR, RVSP 23 mmHg cxr: improved aeration est cct 35 mins ventricular tachycardia - reportedly torsades in the ER and episode of VT while in ICU on amio gtt - likely in setting of electrolyte abnormalities, cardiomyopathy - trop neg x 3, EKG no ischemic changes, less likely ACS - cont amio gtt for now, would dc when more stable from sepsis, possibly tomorrow now that extubated and off pressors. cont tele. - agree with holding risperdal - would interrogate PPM/ICD - device nursery hand not known, had prior care at an outside chief ii dispatcher, [facility] - team attempting to obtain records septic shock, UTI - manage per primary, ID - off pressors now, extubated DONIS on CKD - renal following. cr has been improving. chronic systolic HF - EF 35% on echo here, CHF noted on chart from [place] - s/p PPM/ICD - holding home lasix, bb given septic shock CAD - per chart, details not known - anemic-->holding clopidogrel - not on statin for now DM - manage per primary schizophrenia - holding risperdal as above
--- NOTE | 2020-01-13 12:55 | PN ---
Physical Exam: SUBJECTIVE: Patient seen and examined. Pt tearing up overnight, feels emotional about no one visiting her and about wanting to get out of bed. OBJECTIVE: Vital Signs Period Temp Pulse Resp BP Sys/Schaeffer Pulse Ox Last 24 Hr 94.8 F-98 F 75-87 10-21 105-135/49-78 95-98 GENERAL: Awake and oriented x2. Emotional and crying. HEAD: Normal with no signs of trauma. EYES: PERRL, sclera anicteric, conjunctiva clear. No ptosis. ENT: Ears normal, nares patent, oropharynx clear without exudates, moist mucous membranes. On NC. NECK: Trachea midline, full range of motion, supple. LIJ in place with mild erythema. LUNGS: Breath sounds equal, clear to auscultation bilaterally, no wheezes, no crackles, no accessory muscle use. HEART: Regular rate and rhythm, S1, S2 without murmur, rub or gallop. ABDOMEN: Soft, nontender, nondistended, normoactive bowel sounds, no guarding, no rebound, no hepatosplenomegaly, no masses. J tube in place with no surrounding erythema. SKIN: Warm, dry, normal turgor, no rashes or lesions noted Laboratory Results - last 24 hr CBC, BMP 01/13/20 05:00 01/13/20 05:00 Active Medications Chlorhexidine Gluconate (Hibiclens For Decolonization -) 1 applic TP HS [facility] Last Admin: 01/12/20 22:21 Dose: 1 applic Fludrocortisone Acetate (Florinef -) 0.1 mg GT DAILY [facility] Last Admin: 01/13/20 10:29 Dose: 0.1 mg Heparin Sodium (Porcine) (Heparin -) 5,000 unit SQ BID [facility] Last Admin: 01/13/20 10:30 Dose: 5,000 unit Hydrocortisone Sodium Succinate (Solu-Cortef -) 50 mg IVPB Q8H-IV [facility] IV Flush (Joseph-Cath Flush) 10 ml IVPUSH PRN PRN PRN Reason: FLUSH Amiodarone HCl/Dextrose (Nexterone 360 Mg/200 Ml Bag) 360 mg in 200 mls @ 16.66 7 mls/hr IVPB ASDIR [facility]; Protocol Last Admin: 01/13/20 04:52 Dose: Not Given Cefepime HCl 1 gm/ Dextrose 100 mls @ 100 mls/hr IVPB BID [facility]; Protocol Last Admin: 01/13/20 10:30 Dose: 100 mls/hr Norepinephrine Bitartrate 8, (000 mcg/ Dextrose) 500 mls @ 18.75 mls/hr IV TITR [facility]; Protocol Last Titration: 01/12/20 15:00 Dose: 0 mcg/min, 0 mls/hr Insulin Aspart (Novolog Vial Sliding Scale -) 1 vial SQ TIDAC [facility]; Protocol Last Admin: 01/13/20 06:30 Dose: 2 units Mupirocin (Bactroban Ointment (For Decolonization) -) 1 applic NS BID [facility] Stop: 01/16/20 09:59 Last Admin: 01/13/20 10:30 Dose: 1 applic Pantoprazole Sodium (Protonix Iv) 40 mg IVPUSH BID [facility] Last Admin: 01/13/20 10:30 Dose: 40 mg Risperidone (Risperdal Oral Solution -) 2 mg GT HS [facility] Risperidone (Risperdal Oral Solution -) 3 mg GT DAILY [facility] ASSESSMENT/PLAN: Patient is a 69 year old female with PMH of CHF, schizophrenia, DM, CKD stage 3, hypothyroidism, GERD, previous cerebral infarct presents to the ED from [facility] with elevated potassium and change in mental status. Neuro -Extubated and off sedation yesterday -Hx of schizophrenia and previous cerebral infarct -Baseline mental status is unclear -Can cont risperidone w/close cardiac monitoring and f/u daily EKG Cardiovascular -Hx of CHF, HTN, CAD -Underwent Vtach and few episodes of torsades, received 4gm Mg and started on amiodarone gtt -Echo (01/11): LVEF: 35%, severe global hypokinesis of LV, trace MR and TR, mild aortic valve thickening -Weaned off pressors, cont to monitor -D/c amiodarone gtt -D/c fluids -Hold antihypertensive medications in light of hypotension -Cont tele monitoring -Cardio consulted (Dr. Broussard) Contact pt's private inquiry agent Dr. Saab. Pacemaker has [employer] pacemaker, last interrogated in Jul 2019 and was unremarkable. Pulmonary -Acute respiratory failure, resolving -Extubated overnight, satting on NC -CXR: new infiltrate and atelectasis in BL upper lobes -Cont IV abx empirically -Maintain O2 >90 -Pt placed on stress dose steroids as pt on chronic hydrocortisone at home -Cont fludrocortisone 0.1mg daily and taper hydrocortisone to 50mg Q8H Renal -Hx of CKD -Hyperkalemia 7.3-->5.0 s/p lokelma x1, calcium gluconate x2, 2L NS -Cr: 4.7-->3.7-->2.4, cont to monitor -Nephro following (Dr. Blount): no need for emergent HD at this time, will cont to assess daily -Monitor urine output and strict I's & O's (475cc from catheter overnight) -D/c fluids -Renal/bladder US: no hydronephrosis, masses, or calculus. L renal atrophy ID -Septic shock likely 2/2 PNA vs UTI -Cont IV cefepime 1gm BID (Day 3), d/c vanc 1gm -ID following (Dr. Cummings) -Sputum cx: nonlactose fermenting GNR -Urine cx: lact fermenting GNR -Blood cx: NGTD GI -Hx of GERD -Pt has J tube in place, monitor output -Will cont with tube feeds Endo -Hx of TIIDM -ISS and BGM TIDAC Heme -Hgb: 13.2 --> 8.4 --> 7.1 -Transfuse 1unit PRB, f/u CBC -F/u FOBT -Haptoglobin 308 (normal) and LDH 147 (normal): unlikely hemolysis Psych -Hx of schizophrenia -Restart home risperidone DVT ppx -Heparin SQ FEN -No standing fluids -Monitor for hyperkalemia and DONIS -Tube feeding Dispo: -Stable for transfer to [facility] [place] -Full code, sister is HCP Visit type - Emergency Visit Emergency Visit: No - New Patient This patient is new to me today: No - Critical Care Critical Care patient: Yes Total Critical Care Time (in minutes): 45 Critical Care Statement: The care of this patient involved high complexity decision making to prevent further life threatening deterioration of the patient's condition and/or to evaluate & treat vital organ system(s) failure or risk of failure. ATTENDING PHYSICIAN STATEMENT I saw and evaluated the patient. I reviewed the resident's note and discussed the case with the resident. I agree with the resident's findings and plan as documented. SUBJECTIVE: OBJECTIVE: ASSESSMENT AND PLAN:
--- NOTE | 2020-01-13 14:12 | EKG ---
Test Reason : Blood Pressure : / mmHG Vent. Rate : 075 BPM Atrial Rate : 075 BPM P-R Int : 224 ms QRS Dur : 104 ms QT Int : 398 ms P-R-T Axes : 045 -17 -03 degrees QTc Int : 444 ms Atrial-paced rhythm with prolonged AV conduction ABNORMAL ECG WHEN COMPARED WITH ECG OF 10-JAN-2020 18:38, ELECTRONIC ATRIAL PACEMAKER HAS REPLACED SINUS RHYTHM NONSPECIFIC T WAVE ABNORMALITY NOW EVIDENT IN INFERIOR LEADS NONSPECIFIC T WAVE ABNORMALITY NOW EVIDENT IN ANTERIOR LEADS T WAVE INVERSION NO LONGER EVIDENT IN LATERAL LEADS Confirmed by ADRIEN LARA MD ([id number]) on 01/13/2020 2:12:27 PM [facility] Confirmed By:ADRIEN LARA MD
[2020-01-13] MEDS: NOREPINEPHRINE BITARTRATE 8,000 MCG in DEXTROSE 5%-WATER - 492 ML IV SCH (14:23)
--- NOTE | 2020-01-13 14:44 | CONSULT ---
Admitting History and Physical - Primary Care Physician PCP: Shelbi Wood - Admission History of Present Illness: 69F h/o CHF, schizophrenia, DM, CKD, hypothyroidism, GERD [facility].Central line placed, had episode of monomorphic VT with pulse and was intubated 01/11 and extubated 01/12. Pt on g/j tube. Jtube feeds started yesterday. Asked to assess for po trials. Reportedly, pt receives pleasure feeds at NH? Tf orders in transfer papers only. No speech tx or po orders noted. Pt cries frequently but denies crying/sadness when approached "I'm alright" Emotional lability? 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 Cardiovascular: Yes: CHF, HTN Pulmonary: Yes: COPD Renal/: Yes: Renal Failure Endocrine: Yes: Diabetes Mellitus, Hypothyroidism - Past Surgical History Additional Past Surgical History: Jejunostomy - Advance Directives Advance Directives: Yes: Health Care Proxy - Smoking History Smoking history: Unknown if ever smoked Have you smoked in the past 12 months: No - Alcohol/Substance Use Hx Alcohol Use: No History of Substance Use: reports: None - Social History ADL: Support Services History of Recent Travel: No History - Admission Reason For Visit: ACUTE KIDNEY INJURY,CHRONIC KIDNEY DISEASE,HYPERKA - Diagnostics X-ray: Report Reviewed - General Mental Status: Alert and Oriented (hospital, December,,), Awake and Alert, Able to Follow Commands, Forgetful, Vague, Intermittently Confused Attention: Intact Ability to Follow Directions: Good Head/Neck Control: Fair - Hearing Hearing: Functional Hearing: Impaired Hearing Aide: No With Patient: No Speech Evaluation - Communication Primary Language: KHMER Communication: Yes: Simple Responses, Dysarthria - Speech Production Intelligibility: Yes: Mildly Impaired - Speech Characteristics Voice Loudness: Normal Voice Pitch: Yes: Normal Voice Phonatory-based Quality: Yes: Hoarse, Dysphonia Speech Clarity: < 75% Articulation: Yes: Imprecise - Language/Auditory Comprehension Follows: Yes: 1 Stage Simple Commands - Swallow Evaluation/Bedside Assessment Current Nutritional Intake: NPO, J Tube Dentition: Yes: Adequate, Missing Teeth Facial Symmetry at Rest: Symmetrical Facial Symmetry on Retraction: Symmetrical Against Resistance Opening: Weak Against Resistance Closing: Weak Pucker Lips: Weak Smile: Weak Lingual Movement: Symmetric Lingual Speed of Movement: Reduced Lingual Movement Strgth Against Opposition: Reduced Laryngeal Elevation: Impaired Laryngeal Movement: Reduced Excursion, Labored,delay initiation, Reduced Velocity Rate of Intake: WFL Labial Seal: WFL Oral Prep Time: WFL A-P Transit: WFL Pocketing: None Timing of Swallow: Delayed Coughing/Throat Clear: Yes (water) Recommendations - Speech Evaluation, Impression/Plan Impression: Verbal, intermittently oriented, dysarthria, Cries, emotional lability.r/o Tardive dyskinesia with frequent jaw/tongue movements. Pt aware of hospital, Dec, 2019, knows she has a GT. Pt wants to eat. Feels they don't feed her "because they dont like her!". Swallow delayed,reduced excursion, aspiration on liquid. Stasis/aspiration on puree? - Disposition Discharge to: Half-Way Facility - Dysphagia Impressions/Plan Swallowing Skills: Impaired Dysphagia Impressions: Moderate Impairment, Ongoing Evaluation, Suspect Aspiration *Silent aspiration: cannot be R/O at bedside Recommendations: MBS w Esophagus, Other (JT feeds until MBS) - Recommendations Diet Consistency: NPO Liquids: NPO
--- NOTE | 2020-01-13 15:54 | PN ---
Progress Note, Physician History of Present Illness: Pt seen and examined at bedside. She is awake and responds to questions. - Current Medication List Current Medications: Active Medications Chlorhexidine Gluconate (Hibiclens For Decolonization -) 1 applic TP HS [facility] Last Admin: 01/12/20 22:21 Dose: 1 applic Fludrocortisone Acetate (Florinef -) 0.1 mg GT DAILY [facility] Last Admin: 01/13/20 10:29 Dose: 0.1 mg Heparin Sodium (Porcine) (Heparin -) 5,000 unit SQ BID [facility] Last Admin: 01/13/20 10:30 Dose: 5,000 unit Hydrocortisone Sodium Succinate (Solu-Cortef -) 50 mg IVPB Q8H-IV [facility] IV Flush (Joseph-Cath Flush) 10 ml IVPUSH PRN PRN PRN Reason: FLUSH Cefepime HCl 1 gm/ Dextrose 100 mls @ 100 mls/hr IVPB BID [facility]; Protocol Last Admin: 01/13/20 10:30 Dose: 100 mls/hr Norepinephrine Bitartrate 8, (000 mcg/ Dextrose) 500 mls @ 18.75 mls/hr IV TITR [facility]; Protocol Last Admin: 01/13/20 14:23 Dose: Not Given Insulin Aspart (Novolog Vial Sliding Scale -) 1 vial SQ TIDAC [facility]; Protocol Last Admin: 01/13/20 12:00 Dose: Not Given Mupirocin (Bactroban Ointment (For Decolonization) -) 1 applic NS BID [facility] Stop: 01/16/20 09:59 Last Admin: 01/13/20 10:30 Dose: 1 applic Pantoprazole Sodium (Protonix Iv) 40 mg IVPUSH BID [facility] Last Admin: 01/13/20 10:30 Dose: 40 mg Risperidone (Risperdal Oral Solution -) 2 mg GT HS [facility] Risperidone (Risperdal Oral Solution -) 3 mg GT DAILY [facility] - Objective Vital Signs: Vital Signs Temperature 97.9 F 01/13/20 14:00 Pulse Rate 87 01/13/20 14:00 Respiratory Rate 23 H 01/13/20 14:00 Blood Pressure 115/78 01/13/20 14:00 O2 Sat by Pulse Oximetry (%) 96 01/13/20 06:00 Constitutional: Yes: Calm Eyes: Yes: Conjunctiva Clear HENT: Yes: Atraumatic Cardiovascular: Yes: S1, S2 Respiratory: Yes: On Nasal O2 Gastrointestinal: Yes: Soft Genitourinary: Yes: [place] Present Musculoskeletal: Yes: WNL Edema: No Neurological: Yes: Oriented Labs: CBC, BMP 01/13/20 05:00 01/13/20 05:00 Problem List - Problems (1) DONIS (acute kidney injury) Code(s): N17.9 - ACUTE KIDNEY FAILURE, UNSPECIFIED (2) Hyperkalemia Code(s): E87.5 - HYPERKALEMIA (3) CAD (coronary artery disease) Code(s): I25.10 - ATHSCL HEART DISEASE OF [place] CORONARY ARTERY W/O ANG PCTRS (4) CHF (congestive heart failure) Code(s): I50.9 - HEART FAILURE, UNSPECIFIED Assessment/Plan Current Medications Generic Name Dose Route Start Last Admin Trade Name Freq PRN Reason Stop Dose Admin Chlorhexidine Gluconate 1 applic 01/11/20 22:00 01/12/20 22:21 Hibiclens For Decolonization - TP 1 applic HS [facility] Administration Fludrocortisone Acetate 0.1 mg 01/13/20 10:00 01/13/20 10:29 Florinef - GT 0.1 mg DAILY [facility] Administration Heparin Sodium (Porcine) 5,000 unit 01/11/20 10:00 01/13/20 10:30 Heparin - SQ 5,000 unit BID [facility] Administration Hydrocortisone Sodium Succinate 50 mg 01/13/20 11:31 Solu-Cortef - IVPB Q8H-IV [facility] IV Flush 10 ml 01/11/20 04:01 Joseph-Cath Flush IVPUSH PRN PRN FLUSH Cefepime HCl 1 gm/ Dextrose 100 mls @ 100 mls/hr 01/11/20 10:45 01/13/20 10: 30 IVPB 100 mls/hr BID [facility] Administration Protocol Norepinephrine Bitartrate 8, 500 mls @ 18.75 mls/hr 01/12/20 07:15 01/13/20 14:23 000 mcg/ Dextrose IV Not Given TITR [facility] Protocol 5 MCG/MIN Insulin Aspart 1 vial 01/11/20 11:00 01/13/20 12:00 Novolog Vial Sliding Scale - SQ Not Given TIDAC [facility] Protocol Mupirocin 1 applic 01/11/20 10:00 01/13/20 10:30 Bactroban Ointment (For Decolonization) - NS 01/16/20 09:59 1 applic BID [facility] Administration Pantoprazole Sodium 40 mg 01/11/20 22:00 01/13/20 10:30 Protonix Iv IVPUSH 40 mg BID [facility] Administration Risperidone 2 mg 01/13/20 22:00 Risperdal Oral Solution - GT HS [facility] Risperidone 3 mg 01/14/20 10:00 Risperdal Oral Solution - GT DAILY [facility] Impression 1. DONIS 2. hyperkalemia 3. hypercalcemia 4. hx cva 5. hx htn 6. dm 7. resp failure requiring intubation Plan - renal function is improving - repeat labs in am - monitor bp closely, avoid hypotension - monitor urine output - discussed with ICU team
[2020-01-13] MEDS ORDERED: NOREPINEPHRINE BITARTRATE 8,000 MCG in DEXTROSE 5%-WATER - 492 ML IV SCH (17:32)
[2020-01-13] MEDS ORDERED: PORTA CATH FLUSH 10 ML IVPUSH PRN (17:32)
[2020-01-13 20:21] LABS: HEMATOCRIT 27.4 % (32.4-45.2); HEMOGLOBIN 8.8 GM/dL (10.7-15.3); MCHC 32.3 g/dl (32.0-36.0); MEAN PLT VOLUME 7.6 fl (7.5-11.1); PLATELET COUNT 277 K/MM3 (134-434); RBC 2.85 M/mm3 (3.60-5.2); RDW 20.9 % (11.6-15.6); WHITE BLOOD COUNT 10.1 K/mm3 (4.0-10.0)
[2020-01-13] MEDS ORDERED: PT OWN MED DRAWER 7, Y5N ONE (21:00)
[2020-01-13] MEDS: CHLORHEXIDINE GLUCONATE 4% CLEANSER FOR DECOLONIZATION TP SCH (22:43)
[2020-01-13] MEDS: risperiDONE 1 MG/1 ML ML - 30 ML BOTTLE GT SCH (22:50)
[2020-01-14] MEDS: HYDROCORTISONE SOD SUCCINATE 100 MG/2 ML VIAL IVPB SCH ×3 (01:38→16:50)
[2020-01-14] MEDS: INSULIN SLIDING SCALE (NOVOLOG) 1 VIAL SQ SCH ×3 (06:56→16:49)
[2020-01-14 07:31] LABS: BASO % 0.2 % (0-2.0); HEMATOCRIT 28.4 % (32.4-45.2); HEMOGLOBIN 9.4 GM/dL (10.7-15.3); LYMPH % 7.4 % (8-40); MCH 31.4 pg (25.7-33.7); MCHC 33.2 g/dl (32.0-36.0); MEAN CELL VOLUME 94.5 fl (80-96); MEAN PLT VOLUME 7.3 fl (7.5-11.1); MONO % 3.9 % (3.8-10.2); NEUT % 88.5 % (42.8-82.8); PLATELET COUNT 279 K/MM3 (134-434); RDW 20.8 % (11.6-15.6); WHITE BLOOD COUNT 9.6 K/mm3 (4.0-10.0)
[2020-01-14 08:03] LABS: ALBUMIN 2.2 g/dl (3.4-5.0); BILIRUBIN,TOTAL 0.3 mg/dL (0.2-1); BLOOD UREA NITROGEN 64.7 mg/dL (7-18); CALCIUM 8.9 mg/dL (8.5-10.1); CREATININE 2.4 mg/dL (0.55-1.3); MAGNESIUM 2.7 mg/dL (1.8-2.4); PHOSPHOROUS 3.9 mg/dL (2.5-4.9); TOT PROT 6.3 g/dl (6.4-8.2)
[2020-01-14] MEDS ORDERED: CEFEPIME HCL 1 GM VIAL (RESTRICTED TO ID) ONE (08:54)
[2020-01-14] MEDS ORDERED: PT OWN MED DRAWER 7, Y5N ONE ×3 (08:54→21:03)
[2020-01-14] MEDS ORDERED: DEXTROSE 5%-WATER 100 ML IVPB ONE (08:54)
--- NOTE | 2020-01-14 09:10 | PN ---
Progress Note, Physician Chief Complaint: seen, examined. Denies CP, SOB, palps. TELE: Paced, artifact - Current Medication List Current Medications: Active Medications Chlorhexidine Gluconate (Hibiclens For Decolonization -) 1 applic TP HS [facility] Last Admin: 01/13/20 22:43 Dose: Not Given Fludrocortisone Acetate (Florinef -) 0.1 mg GT DAILY [facility] Heparin Sodium (Porcine) (Heparin -) 5,000 unit SQ BID [facility] Last Admin: 01/13/20 22:58 Dose: 5,000 unit Hydrocortisone Sodium Succinate (Solu-Cortef -) 50 mg IVPB Q8H-IV [facility] Last Admin: 01/14/20 01:38 Dose: 50 mg IV Flush (Joseph-Cath Flush) 10 ml IVPUSH PRN PRN PRN Reason: FLUSH Cefepime HCl 1 gm/ Dextrose 100 mls @ 100 mls/hr IVPB BID [facility]; Protocol Last Admin: 01/13/20 22:59 Dose: 100 mls/hr Norepinephrine Bitartrate 8, (000 mcg/ Dextrose) 500 mls @ 18.75 mls/hr IV TITR [facility]; Protocol Last Admin: 01/13/20 18:12 Dose: Not Given Insulin Aspart (Novolog Vial Sliding Scale -) 1 vial SQ TIDAC [facility]; Protocol Last Admin: 01/14/20 06:56 Dose: Not Given Mupirocin (Bactroban Ointment (For Decolonization) -) 1 applic NS BID [facility] Stop: 01/16/20 09:59 Last Admin: 01/13/20 22:42 Dose: Not Given Pantoprazole Sodium (Protonix Iv) 40 mg IVPUSH BID [facility] Last Admin: 01/13/20 23:01 Dose: 40 mg Risperidone (Risperdal Oral Solution -) 2 mg GT HS [facility] Last Admin: 01/13/20 22:50 Dose: 2 mg Risperidone (Risperdal Oral Solution -) 3 mg GT DAILY [facility] - Objective Vital Signs: Vital Signs Temperature 97.8 F 01/14/20 04:00 Pulse Rate 77 01/14/20 04:00 Respiratory Rate 20 01/14/20 04:00 Blood Pressure 141/74 01/14/20 04:00 O2 Sat by Pulse Oximetry (%) 95 01/13/20 21:00 Constitutional: Yes: No Distress Cardiovascular: Yes: Regular Rate and Rhythm Respiratory: Yes: CTA Bilaterally Gastrointestinal: Yes: Soft (NT) Edema: No Neurological: Yes: Alert Labs: CBC, BMP 01/14/20 07:13 01/14/20 07:13 Microbiology 01/11/20 01:30 Urine - Urine - Catheterized Urine Culture - Final Klebsiella Oxytoca 01/11/20 02:50 Blood - Peripheral Venous Blood Culture - Preliminary NO GROWTH OBTAINED AFTER 72 HOURS, INCUBATION TO CONTINUE FOR 2 DAYS. 01/11/20 02:50 Blood - Peripheral Venous Blood Culture - Preliminary NO GROWTH OBTAINED AFTER 72 HOURS, INCUBATION TO CONTINUE FOR 2 DAYS. Assessment/Plan echo 12/2019 severe global hypokinesis of LV, EF 35%, tr MR, tr TR, RVSP 23 mmHg Ventricular tachycardia: - reportedly torsades in the ER and episode of VT while in ICU on amio gtt - likely in setting of electrolyte abnormalities, cardiomyopathy - trop neg x 3, EKG no ischemic changes, less likely ACS - cont tele. 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 Renal fx improved. chronic systolic HF: - EF 35% on echo here, CHF noted on chart from [place] - s/p PPM/ICD - holding home lasix, bb given septic shock; would try to resume low dose BB ( was on Coreg) in next 24 hours- on 01/15. Would start with 3.125mg BID and titrate. CAD: - per chart, details not known - anemic-->holding clopidogrel . Check stool for occult blood. - not on statin for now DM: - manage per primary schizophrenia: - Risperdal initially held do to VT, now resumed while patient remains on tele. Keep K/Mg normalized.
[2020-01-14] MEDS: MUPIROCIN 2% TOPICAL OINTMENT FOR DECOLONIZATION NS SCH ×2 (09:23→21:50)
[2020-01-14] MEDS: PANTOPRAZOLE SODIUM 40 MG VIAL IVPUSH SCH ×2 (09:25→21:27)
[2020-01-14] MEDS: CEFEPIME 1 GM in DEXTROSE 5%-WATER 100 ML IVPB SCH (09:29)
[2020-01-14] MEDS: HEPARIN NA (PORCINE) 5,000 UNITS/ML 1ML VIAL SQ SCH ×2 (09:29→21:27)
[2020-01-14] MEDS ORDERED: FLUDROCORTISONE ACETATE 0.1 MG TABLET (FP) GT SCH ×2 (10:00)
[2020-01-14 10:08] LABS: ANTIGLOMERULAR BASEMENT MEN.AB 3 units (0-20)
--- NOTE | 2020-01-14 10:11 | PN ---
Progress Note (short form) - Note Progress Note: Pt seen/ examined chart is reviewed awake/ comfortable no distress Vital Signs Temp 97.8 F 01/14/20 04:00 Pulse 77 01/14/20 04:00 Resp 20 01/14/20 04:00 BP 141/74 01/14/20 04:00 Pulse Ox 95 01/13/20 21:00 Intake & Output 01/13/20 01/13/20 01/14/20 11:59 23:59 11:59 Intake Total 1000.4 50 Output Total 760 300 Balance 240.4 -250 Weight 162 lb 11.2 oz Intake: IV 200.4 Amiodarone 200.4 IVPB 200 50 Oral 0 Tube Feeding 360 Tube Irrigant 240 Output: Gastric Drainage 160 Urine 600 300 De [place]za 600 300 Other: Voiding Method Incontinent # Unmeasured Voids [place] 1 Bowel Movement Yes Yes # Bowel Movements 2 1 Weight Measurement Method [facility] Active Medications Chlorhexidine Gluconate (Hibiclens For Decolonization -) 1 applic TP HS [facility] Last Admin: 01/13/20 22:43 Dose: Not Given Fludrocortisone Acetate (Florinef -) 0.1 mg GT DAILY [facility] Heparin Sodium (Porcine) (Heparin -) 5,000 unit SQ BID [facility] Last Admin: 01/14/20 09:29 Dose: 5,000 unit Hydrocortisone Sodium Succinate (Solu-Cortef -) 50 mg IVPB Q8H-IV [facility] Last Admin: 01/14/20 09:27 Dose: 50 mg IV Flush (Joseph-Cath Flush) 10 ml IVPUSH PRN PRN PRN Reason: FLUSH Cefepime HCl 1 gm/ Dextrose 100 mls @ 100 mls/hr IVPB BID [facility]; Protocol Last Admin: 01/14/20 09:29 Dose: 100 mls/hr Insulin Aspart (Novolog Vial Sliding Scale -) 1 vial SQ TIDAC [facility]; Protocol Last Admin: 01/14/20 06:56 Dose: Not Given Mupirocin (Bactroban Ointment (For Decolonization) -) 1 applic NS BID [facility] Stop: 01/16/20 09:59 Last Admin: 01/14/20 09:23 Dose: Not Given Pantoprazole Sodium (Protonix Iv) 40 mg IVPUSH BID [facility] Last Admin: 01/14/20 09:25 Dose: 40 mg Risperidone (Risperdal Oral Solution -) 2 mg GT HS [facility] Last Admin: 01/13/20 22:50 Dose: 2 mg Risperidone (Risperdal Oral Solution -) 3 mg GT DAILY [facility] CBC, BMP 01/14/20 07:13 01/14/20 07:13 Physical S1 S2 RRR Lungs clear Abd- soft, NT, GT/JT NO edema de la garza PPM Rt portacath PLAN Acute anemia -- better - Monitor - check stool Acute respiratory failure -- extubated -- on O2 Sepsis -- Better -- sputum cultures noted -- on Cefepime Adrenal insufficiency -- on Florinef -- stress dose steroids h/o aspiration pneumonia -- had a large hiatal hernia -- has both G and J tube -- feeding and meds through J tube and intermittent suctioning through G tube -- swallow eval noted Acute renal failure -- resolving -- renal function towards baseline Monitor bgm will follow Problem List - Problems (1) DONIS (acute kidney injury) Code(s): N17.9 - ACUTE KIDNEY FAILURE, UNSPECIFIED (2) Acute renal failure superimposed on chronic kidney disease Code(s): N17.9 - ACUTE KIDNEY FAILURE, UNSPECIFIED; N18.9 - CHRONIC KIDNEY DISEASE, UNSPECIFIED (3) Diabetes mellitus Code(s): E11.9 - TYPE 2 DIABETES MELLITUS WITHOUT COMPLICATIONS (4) HTN (hypertension) Code(s): I10 - ESSENTIAL (PRIMARY) HYPERTENSION (5) Hyperkalemia Code(s): E87.5 - HYPERKALEMIA (6) Hypothyroidism Code(s): E03.9 - HYPOTHYROIDISM, UNSPECIFIED (7) Torsades de pointes Code(s): I47.2 - VENTRICULAR TACHYCARDIA
[2020-01-14 10:22] LABS: ANISOCYTOSIS 2+; MACROCYTOSIS 0; PLATELET ESTIMATE NORMAL
--- NOTE | 2020-01-14 10:47 | PN ---
Progress Note, Physician History of Present Illness: pulmonary alert,comfortable,-resp distress - Current Medication List Current Medications: Active Medications Chlorhexidine Gluconate (Hibiclens For Decolonization -) 1 applic TP HS [facility] Last Admin: 01/13/20 22:43 Dose: Not Given Fludrocortisone Acetate (Florinef -) 0.1 mg GT DAILY [facility] Heparin Sodium (Porcine) (Heparin -) 5,000 unit SQ BID [facility] Last Admin: 01/14/20 09:29 Dose: 5,000 unit Hydrocortisone Sodium Succinate (Solu-Cortef -) 50 mg IVPB Q8H-IV [facility] Last Admin: 01/14/20 09:27 Dose: 50 mg IV Flush (Joseph-Cath Flush) 10 ml IVPUSH PRN PRN PRN Reason: FLUSH Cefepime HCl 1 gm/ Dextrose 100 mls @ 100 mls/hr IVPB BID [facility]; Protocol Last Admin: 01/14/20 09:29 Dose: 100 mls/hr Insulin Aspart (Novolog Vial Sliding Scale -) 1 vial SQ TIDAC [facility]; Protocol Last Admin: 01/14/20 06:56 Dose: Not Given Mupirocin (Bactroban Ointment (For Decolonization) -) 1 applic NS BID [facility] Stop: 01/16/20 09:59 Last Admin: 01/14/20 09:23 Dose: Not Given Pantoprazole Sodium (Protonix Iv) 40 mg IVPUSH BID [facility] Last Admin: 01/14/20 09:25 Dose: 40 mg Risperidone (Risperdal Oral Solution -) 2 mg GT [facility] Last Admin: 01/13/20 22:50 Dose: 2 mg Risperidone (Risperdal Oral Solution -) 3 mg GT DAILY [facility] - Objective Vital Signs: Vital Signs Temperature 97.8 F 01/14/20 04:00 Pulse Rate 77 01/14/20 04:00 Respiratory Rate 20 01/14/20 04:00 Blood Pressure 141/74 01/14/20 04:00 O2 Sat by Pulse Oximetry (%) 95 01/13/20 21:00 Constitutional: Yes: Well Nourished, Calm Eyes: Yes: WNL HENT: Yes: WNL Neck: Yes: WNL Cardiovascular: Yes: Regular Rate and Rhythm, S1, S2 Respiratory: Yes: Diminished Gastrointestinal: Yes: Normal Bowel Sounds, Soft Extremities: Yes: WNL Edema: No Labs: CBC, BMP 01/14/20 07:13 01/14/20 07:13 Problem List - Problems (1) DONIS (acute kidney injury) Code(s): N17.9 - ACUTE KIDNEY FAILURE, UNSPECIFIED (2) Diabetes mellitus Code(s): E11.9 - TYPE 2 DIABETES MELLITUS WITHOUT COMPLICATIONS (3) H/O cerebral infarction Code(s): Z86.73 - PRSNL HX OF TIA (TIA), AND CEREB INFRC W/O RESID DEFICITS (4) HTN (hypertension) Code(s): I10 - ESSENTIAL (PRIMARY) HYPERTENSION (5) Hyperkalemia Code(s): E87.5 - HYPERKALEMIA (6) Hypothyroidism Code(s): E03.9 - HYPOTHYROIDISM, UNSPECIFIED (7) Torsades de pointes Code(s): I47.2 - VENTRICULAR TACHYCARDIA (8) Ventricular tachycardia seen on campus monitor Code(s): I47.2 - VENTRICULAR TACHYCARDIA (9) CAD (coronary artery disease) Code(s): I25.10 - ATHSCL HEART DISEASE OF [place] CORONARY ARTERY W/O ANG PCTRS (10) CHF (congestive heart failure) Code(s): I50.9 - HEART FAILURE, UNSPECIFIED (11) Acute respiratory failure Code(s): J96.00 - ACUTE RESPIRATORY FAILURE, UNSP W HYPOXIA OR HYPERCAPNIA (12) Acute respiratory failure Code(s): J96.00 - ACUTE RESPIRATORY FAILURE, UNSP W HYPOXIA OR HYPERCAPNIA Assessment/Plan ASSESSMENT AND PLAN: s/p Acute Respiratory Failure V Tach Hyperkalemia improved Pneumonia Septic Shock Acute on Chronic Renal Failure Hypercalcemia LV Systolic/Diastolic Dysfunction COPD HTN DM Anemia Schizophrenia h/o CVA - antibiotics - monitor urine output, creatinine - taper stress dose steroids - monitor QTc - monitor lytes - monitor H/H - normal transfusion threshold - OOB to chair - enteral feeds - DVT/GI prophylaxis DR ATKINS
[2020-01-14] MEDS: risperiDONE 1 MG/1 ML ML - 30 ML BOTTLE GT SCH ×2 (13:00→21:51)
--- NOTE | 2020-01-14 16:21 | PN ---
Progress Note, Physician History of Present Illness: Pt seen and examined at bedside. She is awake and appears comfortable. - Current Medication List Current Medications: Active Medications Chlorhexidine Gluconate (Hibiclens For Decolonization -) 1 applic TP HS [facility] Last Admin: 01/13/20 22:43 Dose: Not Given Fludrocortisone Acetate (Florinef -) 0.1 mg GT DAILY [facility] Heparin Sodium (Porcine) (Heparin -) 5,000 unit SQ BID [facility] Last Admin: 01/14/20 09:29 Dose: 5,000 unit Hydrocortisone Sodium Succinate (Solu-Cortef -) 50 mg IVPB Q8H-IV [facility] Last Admin: 01/14/20 09:27 Dose: 50 mg IV Flush (Joseph-Cath Flush) 10 ml IVPUSH PRN PRN PRN Reason: FLUSH Cefepime HCl 1 gm/ Dextrose 100 mls @ 100 mls/hr IVPB BID [facility]; Protocol Last Admin: 01/14/20 09:29 Dose: 100 mls/hr Insulin Aspart (Novolog Vial Sliding Scale -) 1 vial SQ TIDAC [facility]; Protocol Last Admin: 01/14/20 11:42 Dose: Not Given Mupirocin (Bactroban Ointment (For Decolonization) -) 1 applic NS BID [facility] Stop: 01/16/20 09:59 Last Admin: 01/14/20 09:23 Dose: Not Given Pantoprazole Sodium (Protonix Iv) 40 mg IVPUSH BID [facility] Last Admin: 01/14/20 09:25 Dose: 40 mg Risperidone (Risperdal Oral Solution -) 2 mg GT HS [facility] Last Admin: 01/13/20 22:50 Dose: 2 mg Risperidone (Risperdal Oral Solution -) 3 mg GT DAILY [facility] - Objective Vital Signs: Vital Signs Temperature 98.2 F 01/14/20 14:10 Pulse Rate 69 01/14/20 14:10 Respiratory Rate 20 01/14/20 14:10 Blood Pressure 147/72 01/14/20 14:10 O2 Sat by Pulse Oximetry (%) 95 01/13/20 21:00 Constitutional: Yes: Calm Eyes: Yes: Conjunctiva Clear HENT: Yes: Atraumatic Neck: Yes: Supple Cardiovascular: Yes: S1, S2 Respiratory: Yes: CTA Bilaterally Gastrointestinal: Yes: Soft, Other (j tube) Genitourinary: Yes: Incontinence Musculoskeletal: Yes: WNL Edema: No Neurological: Yes: Oriented Labs: CBC, BMP 01/14/20 07:13 01/14/20 07:13 Problem List - Problems (1) DONIS (acute kidney injury) Code(s): N17.9 - ACUTE KIDNEY FAILURE, UNSPECIFIED (2) Hyperkalemia Code(s): E87.5 - HYPERKALEMIA (3) CAD (coronary artery disease) Code(s): I25.10 - ATHSCL HEART DISEASE OF [place] CORONARY ARTERY W/O ANG PCTRS (4) CHF (congestive heart failure) Code(s): I50.9 - HEART FAILURE, UNSPECIFIED Assessment/Plan Current Medications Generic Name Dose Route Start Last Admin Trade Name Freq PRN Reason Stop Dose Admin Chlorhexidine Gluconate 1 applic 01/13/20 22:00 01/13/20 22:43 Hibiclens For Decolonization - TP Not Given HS [facility] Fludrocortisone Acetate 0.1 mg 01/14/20 10:00 Florinef - GT DAILY [facility] Heparin Sodium (Porcine) 5,000 unit 01/13/20 22:00 01/14/20 09:29 Heparin - SQ 5,000 unit BID [facility] Administration Hydrocortisone Sodium Succinate 50 mg 01/13/20 11:31 01/14/20 09:27 Solu-Cortef - IVPB 50 mg Q8H-IV [facility] Administration IV Flush 10 ml 01/13/20 17:32 Joseph-Cath Flush IVPUSH PRN PRN FLUSH Cefepime HCl 1 gm/ Dextrose 100 mls @ 100 mls/hr 01/13/20 22:00 01/14/20 09: 29 IVPB 100 mls/hr BID [facility] Administration Protocol Insulin Aspart 1 vial 01/14/20 07:00 01/14/20 11:42 Novolog Vial Sliding Scale - SQ Not Given TIDAC [facility] Protocol Mupirocin 1 applic 01/13/20 22:00 01/14/20 09:23 Bactroban Ointment (For Decolonization) - NS 01/16/20 09:59 Not Given BID [facility] Pantoprazole Sodium 40 mg 01/13/20 22:00 01/14/20 09:25 Protonix Iv IVPUSH 40 mg BID [facility] Administration Risperidone 2 mg 01/13/20 22:00 01/13/20 22:50 Risperdal Oral Solution - GT 2 mg HS [facility] Administration Risperidone 3 mg 01/14/20 10:00 Risperdal Oral Solution - GT DAILY [facility] Impression 1. DONIS 2. hyperkalemia 3. hypercalcemia 4. hx cva 5. hx htn 6. dm 7. resp failure requiring intubation 8. hypernatremia Plan - add free water to feeds - repeat labs in am - pt now in medical echols - of she does not tolerated feeds then start d5w - monitor bp closely, avoid hypotension
[2020-01-14 17:08] LABS: ATYPICAL pANCA <1:20 titer (Neg:<1:20); C-ANCA <1:20 titer (Neg:<1:20)
--- NOTE | 2020-01-14 18:39 | PN ---
Progress Note, Physician Chief Complaint: ON TELEMETRY CONFUSED AFEBRILE BREATHING NON-LABORED - Current Medication List Current Medications: Active Medications Chlorhexidine Gluconate (Hibiclens For Decolonization -) 1 applic TP HS [facility] Last Admin: 01/13/20 22:43 Dose: Not Given Fludrocortisone Acetate (Florinef -) 0.1 mg GT DAILY [facility] Heparin Sodium (Porcine) (Heparin -) 5,000 unit SQ BID [facility] Last Admin: 01/14/20 09:29 Dose: 5,000 unit Hydrocortisone Sodium Succinate (Solu-Cortef -) 50 mg IVPB Q8H-IV [facility] Last Admin: 01/14/20 16:50 Dose: 50 mg IV Flush (Joseph-Cath Flush) 10 ml IVPUSH PRN PRN PRN Reason: FLUSH Cefepime HCl 1 gm/ Dextrose 100 mls @ 100 mls/hr IVPB BID [facility]; Protocol Last Admin: 01/14/20 09:29 Dose: 100 mls/hr Insulin Aspart (Novolog Vial Sliding Scale -) 1 vial SQ TIDAC [facility]; Protocol Last Admin: 01/14/20 16:49 Dose: Not Given Mupirocin (Bactroban Ointment (For Decolonization) -) 1 applic NS BID [facility] Stop: 01/16/20 09:59 Last Admin: 01/14/20 09:23 Dose: Not Given Pantoprazole Sodium (Protonix Iv) 40 mg IVPUSH BID [facility] Last Admin: 01/14/20 09:25 Dose: 40 mg Risperidone (Risperdal Oral Solution -) 2 mg GT HS [facility] Last Admin: 01/13/20 22:50 Dose: 2 mg Risperidone (Risperdal Oral Solution -) 3 mg GT DAILY [facility] Last Admin: 01/14/20 13:00 Dose: 3 mg - Objective Vital Signs: Vital Signs Temperature 98.2 F 01/14/20 14:10 Pulse Rate 73 01/14/20 18:00 Respiratory Rate 20 01/14/20 18:00 Blood Pressure 141/81 01/14/20 18:00 O2 Sat by Pulse Oximetry (%) 95 01/13/20 21:00 Constitutional: Yes: No Distress Cardiovascular: Yes: Regular Rate and Rhythm, S1, S2 Respiratory: Yes: CTA Bilaterally Gastrointestinal: Yes: Normal Bowel Sounds, Soft. No: Tenderness Edema: Yes Labs: CBC, BMP 01/14/20 07:13 01/14/20 07:13 Assessment/Plan RESPIRATORY FAILURE S/P EXTUBATION UTI R/O SEPSIS SECONDARY TO UTI S/P TORSADES ANTIBIOTIC ALLERGIES SUBSTITUTE CETRIAXONE QD
[2020-01-14] MEDS: CHLORHEXIDINE GLUCONATE 4% CLEANSER FOR DECOLONIZATION TP SCH (21:50)
[2020-01-15] MEDS: HYDROCORTISONE SOD SUCCINATE 100 MG/2 ML VIAL IVPB SCH ×4 (04:58→22:16)
[2020-01-15] MEDS: INSULIN SLIDING SCALE (NOVOLOG) 1 VIAL SQ SCH ×3 (06:25→16:51)
[2020-01-15 07:45] LABS: BASO % 0.2 % (0-2.0); EOS % 0.4 % (0-4.5); HEMATOCRIT 30.1 % (32.4-45.2); LYMPH % 12.3 % (8-40); MCH 31.7 pg (25.7-33.7); MCHC 33.1 g/dl (32.0-36.0); MEAN CELL VOLUME 95.6 fl (80-96); MEAN PLT VOLUME 7.6 fl (7.5-11.1); MONO % 7.2 % (3.8-10.2); NEUT % 79.9 % (42.8-82.8); PLATELET COUNT 274 K/MM3 (134-434); RBC 3.15 M/mm3 (3.60-5.2); WHITE BLOOD COUNT 8.5 K/mm3 (4.0-10.0)
[2020-01-15 07:55] LABS: ALBUMIN 2.1 g/dl (3.4-5.0); BILIRUBIN,TOTAL 0.3 mg/dL (0.2-1); BLOOD UREA NITROGEN 53.4 mg/dL (7-18); CALCIUM 9.2 mg/dL (8.5-10.1); CREATININE 2.1 mg/dL (0.55-1.3); POTASSIUM 3.2 mmol/L (3.5-5.1); TOT PROT 6.4 g/dl (6.4-8.2)
[2020-01-15] MEDS ORDERED: PT OWN MED DRAWER 7, Y5N ONE ×3 (09:10→22:12)
[2020-01-15] MEDS ORDERED: DEXTROSE 5%-WATER - 50 ML IVPB ONE (09:10)
[2020-01-15] MEDS ORDERED: cefTRIAXone SODIUM 1 GM VIAL ONE (09:10)
[2020-01-15] MEDS: CEFTRIAXONE 1 GM in DEXTROSE 5%-WATER - 50 ML IVPB SCH (09:26)
[2020-01-15] MEDS: PANTOPRAZOLE SODIUM 40 MG VIAL IVPUSH SCH (09:29)
[2020-01-15] MEDS: HEPARIN NA (PORCINE) 5,000 UNITS/ML 1ML VIAL SQ SCH ×2 (09:32→22:16)
[2020-01-15] MEDS: MUPIROCIN 2% TOPICAL OINTMENT FOR DECOLONIZATION NS SCH ×2 (09:36→22:16)
[2020-01-15] MEDS: CARVEDILOL 3.125 MG TABLET (FP) PO SCH ×2 (09:53→22:17)
[2020-01-15] MEDS: risperiDONE 1 MG/1 ML ML - 30 ML BOTTLE GT SCH ×2 (09:55→22:16)
--- NOTE | 2020-01-15 09:57 | PN ---
Progress Note (short form) - Note Progress Note: s: no cp sob palps dizzy TELE: Paced, artifact - Current Medications Generic Name Dose Route Start Last Admin Trade Name Freq PRN Reason Stop Dose Admin Carvedilol 3.125 mg 01/15/20 10:00 Coreg - PO BID [facility] Chlorhexidine Gluconate 1 applic 01/13/20 22:00 01/14/20 21:50 Hibiclens For Decolonization - TP Not Given HS [facility] Fludrocortisone Acetate 0.1 mg 01/14/20 10:00 Florinef - GT DAILY [facility] Heparin Sodium (Porcine) 5,000 unit 01/13/20 22:00 01/15/20 09:32 Heparin - SQ 5,000 unit BID [facility] Administration Hydrocortisone Sodium Succinate 50 mg 01/13/20 11:31 01/15/20 09:36 Solu-Cortef - IVPB 50 mg Q8H-IV [facility] Administration IV Flush 10 ml 01/13/20 17:32 Joseph-Cath Flush IVPUSH PRN PRN FLUSH Ceftriaxone Sodium 1 gm/ 50 mls @ 100 mls/hr 01/15/20 10:00 01/15/20 09:26 Dextrose IVPB 100 mls/hr DAILY [facility] Administration Protocol Insulin Aspart 1 vial 01/14/20 07:00 01/15/20 06:25 Novolog Vial Sliding Scale - SQ Not Given TIDAC [facility] Protocol Mupirocin 1 applic 01/13/20 22:00 01/15/20 09:36 Bactroban Ointment (For Decolonization) - NS 01/16/20 09:59 Not Given BID [facility] Pantoprazole Sodium 40 mg 01/13/20 22:00 01/15/20 09:29 Protonix Iv IVPUSH 40 mg BID [facility] Administration Risperidone 2 mg 01/13/20 22:00 01/14/20 21:51 Risperdal Oral Solution - GT 2 mg HS [facility] Administration Risperidone 3 mg 01/14/20 10:00 01/14/20 13:00 Risperdal Oral Solution - GT 3 mg DAILY [facility] Administration Vital Signs Period Temp Pulse Resp BP Sys/Schaeffer Pulse Ox Last 24 Hr 97.8 F-98.5 F 69-84 20-20 123-169/72-88 95-100 Constitutional: Yes: No Distress Cardiovascular: Yes: Regular Rate and Rhythm Respiratory: Yes: CTA Bilaterally Gastrointestinal: Yes: Soft (NT) Edema: No Neurological: Yes: Alert no jaundiec diaphoresis Labs: CBC, BMP 01/15/20 06:50 01/15/20 06:50 Assessment/Plan echo 12/2019 severe global hypokinesis of LV, EF 35%, tr MR, tr TR, RVSP 23 mmHg Ventricular tachycardia: - reportedly torsades in the ER and episode of VT while in ICU on amio gtt - likely in setting of electrolyte abnormalities, cardiomyopathy, amio now dc as sepsis, lytes have improved - trop neg x 3, EKG no ischemic changes, less likely ACS - cont tele. 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 Renal fx improved. chronic systolic HF: - EF 35% on echo here, CHF noted on chart from [place] - s/p PPM/ICD -will resume coreg, low dose to start -holding home lasix for now CAD: - per chart, details not known - anemic-->holding clopidogrel . - not on statin for now DM: - manage per primary schizophrenia: - Risperdal initially held do to VT, now resumed while patient remains on tele. Keep K/Mg normalized.
--- NOTE | 2020-01-15 10:01 | PN ---
Progress Note, Physician History of Present Illness: PULMONARY AWAKE,COMFORTABLE,-RESP DISTRESS - Current Medication List Current Medications: Active Medications Carvedilol (Coreg -) 3.125 mg PO BID [facility] Last Admin: 01/15/20 09:53 Dose: 3.125 mg Chlorhexidine Gluconate (Hibiclens For Decolonization -) 1 applic TP HS [facility] Last Admin: 01/14/20 21:50 Dose: Not Given Fludrocortisone Acetate (Florinef -) 0.1 mg GT DAILY [facility] Heparin Sodium (Porcine) (Heparin -) 5,000 unit SQ BID [facility] Last Admin: 01/15/20 09:32 Dose: 5,000 unit Hydrocortisone Sodium Succinate (Solu-Cortef -) 50 mg IVPB Q8H-IV [facility] Last Admin: 01/15/20 09:36 Dose: 50 mg IV Flush (Joseph-Cath Flush) 10 ml IVPUSH PRN PRN PRN Reason: FLUSH Ceftriaxone Sodium 1 gm/ (Dextrose) 50 mls @ 100 mls/hr IVPB DAILY [facility]; Protocol Last Admin: 01/15/20 09:26 Dose: 100 mls/hr Insulin Aspart (Novolog Vial Sliding Scale -) 1 vial SQ [facility]; Protocol Last Admin: 01/15/20 06:25 Dose: Not Given Mupirocin (Bactroban Ointment (For Decolonization) -) 1 applic NS BID [facility] Stop: 01/16/20 09:59 Last Admin: 01/15/20 09:36 Dose: Not Given Pantoprazole Sodium (Protonix Iv) 40 mg IVPUSH BID [facility] Last Admin: 01/15/20 09:29 Dose: 40 mg Risperidone (Risperdal Oral Solution -) 2 mg GT HS [facility] Last Admin: 01/14/20 21:51 Dose: 2 mg Risperidone (Risperdal Oral Solution -) 3 mg GT DAILY [facility] Last Admin: 01/15/20 09:55 Dose: 3 mg - Objective Vital Signs: Vital Signs Temperature 98 F 01/15/20 07:45 Pulse Rate 76 01/15/20 07:45 Respiratory Rate 20 01/15/20 07:47 Blood Pressure 123/77 01/15/20 07:45 O2 Sat by Pulse Oximetry (%) 100 01/15/20 07:47 Constitutional: Yes: No Distress, Calm Eyes: Yes: WNL HENT: Yes: WNL Neck: Yes: WNL Cardiovascular: Yes: Regular Rate and Rhythm, S1, S2 Respiratory: Yes: Diminished (POOR INSPIRATORY EFFORT) Gastrointestinal: Yes: Normal Bowel Sounds, Soft, Abdomen, Obese Extremities: Yes: WNL Edema: No Labs: CBC, BMP 01/15/20 06:50 01/15/20 06:50 Problem List - Problems (1) DONIS (acute kidney injury) Code(s): N17.9 - ACUTE KIDNEY FAILURE, UNSPECIFIED (2) Diabetes mellitus Code(s): E11.9 - TYPE 2 DIABETES MELLITUS WITHOUT COMPLICATIONS (3) H/O cerebral infarction Code(s): Z86.73 - PRSNL HX OF TIA (TIA), AND CEREB INFRC W/O RESID DEFICITS (4) HTN (hypertension) Code(s): I10 - ESSENTIAL (PRIMARY) HYPERTENSION (5) Hyperkalemia Code(s): E87.5 - HYPERKALEMIA (6) Hypothyroidism Code(s): E03.9 - HYPOTHYROIDISM, UNSPECIFIED (7) Torsades de pointes Code(s): I47.2 - VENTRICULAR TACHYCARDIA (8) Ventricular tachycardia seen on octave board racker Code(s): I47.2 - VENTRICULAR TACHYCARDIA (9) CAD (coronary artery disease) Code(s): I25.10 - ATHSCL HEART DISEASE OF [place] CORONARY ARTERY W/O ANG PCTRS (10) CHF (congestive heart failure) Code(s): I50.9 - HEART FAILURE, UNSPECIFIED (11) Acute respiratory failure Code(s): J96.00 - ACUTE RESPIRATORY FAILURE, UNSP W HYPOXIA OR HYPERCAPNIA (12) Acute respiratory failure Code(s): J96.00 - ACUTE RESPIRATORY FAILURE, UNSP W HYPOXIA OR HYPERCAPNIA Assessment/Plan ASSESSMENT AND PLAN: s/p Acute Respiratory Failure V Tach Hyperkalemia improved Pneumonia Septic Shock Acute on Chronic Renal Failure Hypercalcemia LV Systolic/Diastolic Dysfunction COPD HTN DM Anemia Schizophrenia h/o CVA - antibiotics - monitor urine output, creatinine - taper stress dose steroids - monitor QTc - monitor H/H - normal transfusion threshold - OOB to chair - enteral feeds - DVT/GI prophylaxis - Monitor lytes,renal function DR ATKINS
[2020-01-15 10:29] LABS: ANISOCYTOSIS 1+; MACROCYTOSIS 0; OVALOCYTE 1+; PLATELET ESTIMATE NORMAL
--- NOTE | 2020-01-15 11:32 | PN ---
Progress Note (short form) - Note Progress Note: Pt seen/ examined awake/ comfortable no distress all f/u noted started on feeding afebrile denies pain poor historian Vital Signs Temp 98 F 01/15/20 07:45 Pulse 76 01/15/20 07:45 Resp 20 01/15/20 07:47 BP 123/77 01/15/20 07:45 Pulse Ox 100 01/15/20 07:47 Intake & Output 01/14/20 01/14/20 01/15/20 11:59 23:59 11:59 Intake Total 200 400 Balance 200 400 Intake: Oral 200 Tube Feeding 200 Tube Irrigant 200 Other: Voiding Method Incontinent Incontinent Incontinent # Unmeasured Voids Void 3 Bowel Movement Yes Active Medications Carvedilol (Coreg -) 3.125 mg PO BID [facility] Last Admin: 01/15/20 09:53 Dose: 3.125 mg Chlorhexidine Gluconate (Hibiclens For Decolonization -) 1 applic TP HS [facility] Last Admin: 01/14/20 21:50 Dose: Not Given Fludrocortisone Acetate (Florinef -) 0.1 mg GT DAILY [facility] Heparin Sodium (Porcine) (Heparin -) 5,000 unit SQ BID [facility] Last Admin: 01/15/20 09:32 Dose: 5,000 unit Hydrocortisone Sodium Succinate (Solu-Cortef -) 50 mg IVPB BID [facility] IV Flush (Joseph-Cath Flush) 10 ml IVPUSH PRN PRN PRN Reason: FLUSH Ceftriaxone Sodium 1 gm/ (Dextrose) 50 mls @ 100 mls/hr IVPB DAILY [facility]; Protocol Last Admin: 01/15/20 09:26 Dose: 100 mls/hr Potassium Chloride (Potassium Chloride 10 Meq Premix Ivpb -) 10 meq in 100 mls @ 100 mls/hr IVPB Q60M [facility] Stop: 01/15/20 14:29 Insulin Aspart (Novolog Vial Sliding Scale -) 1 vial SQ TIDAC [facility]; Protocol Last Admin: 01/15/20 11:29 Dose: Not Given Mupirocin (Bactroban Ointment (For Decolonization) -) 1 applic NS BID [facility] Stop: 01/16/20 09:59 Last Admin: 01/15/20 09:36 Dose: Not Given Pantoprazole Sodium (Protonix Iv) 40 mg IVPUSH DAILY [facility] Risperidone (Risperdal Oral Solution -) 2 mg GT HS [facility] Last Admin: 01/14/20 21:51 Dose: 2 mg Risperidone (Risperdal Oral Solution -) 3 mg GT DAILY [facility] Last Admin: 01/15/20 09:55 Dose: 3 mg CBC, BMP 01/15/20 06:50 01/15/20 06:50 Physical awake S1 S2 RRR Lungs clear Abd- soft, NT, GT/JT NO edema de la garza PPM Rt portacath A/P s/p Acute Respiratory Failure V Tach Electrolyte Imbalance Pneumonia Septic Shock Acute on Chronic Renal Failure CHf COPD HTN DM Anemia Schizophrenia h/o CVA s/p g/j tube Abx started on feeding k supplement monitor on tele continue same meds will follow d/w Rn also Problem List - Problems (1) DONIS (acute kidney injury) Code(s): N17.9 - ACUTE KIDNEY FAILURE, UNSPECIFIED (2) Acute renal failure superimposed on chronic kidney disease Code(s): N17.9 - ACUTE KIDNEY FAILURE, UNSPECIFIED; N18.9 - CHRONIC KIDNEY DISEASE, UNSPECIFIED (3) Diabetes mellitus Code(s): E11.9 - TYPE 2 DIABETES MELLITUS WITHOUT COMPLICATIONS (4) HTN (hypertension) Code(s): I10 - ESSENTIAL (PRIMARY) HYPERTENSION (5) Hyperkalemia Code(s): E87.5 - HYPERKALEMIA (6) Hypothyroidism Code(s): E03.9 - HYPOTHYROIDISM, UNSPECIFIED (7) Torsades de pointes Code(s): I47.2 - VENTRICULAR TACHYCARDIA
[2020-01-15] MEDS: KCL 10 MEQ IVPB 10 MEQ/100 ML INFUS.BAG IVPB SCH ×3 (13:11→21:00)
[2020-01-15] MEDS: CHLORHEXIDINE GLUCONATE 4% CLEANSER FOR DECOLONIZATION TP SCH (22:17)
--- NOTE | 2020-01-15 22:28 | PN ---
Progress Note (short form) - Note Progress Note: covering dr eduardo Problems 1. DONIS 2. hyperkalemia 3. hypercalcemia 4. hx cva 5. hx htn 6. dm 7. resp failure requiring intubation 8. hypernatremia Current Medications Carvedilol (Coreg -) 3.125 mg PO BID [facility] Last Admin: 01/15/20 22:17 Dose: 3.125 mg Chlorhexidine Gluconate (Hibiclens For Decolonization -) 1 applic TP HS [facility] Last Admin: 01/15/20 22:17 Dose: 1 applic Heparin Sodium (Porcine) (Heparin -) 5,000 unit SQ BID [facility] Last Admin: 01/15/20 22:16 Dose: 5,000 unit Hydrocortisone Sodium Succinate (Solu-Cortef -) 50 mg IVPB BID [facility] Last Admin: 01/15/20 22:16 Dose: 50 mg IV Flush (Joseph-Cath Flush) 10 ml IVPUSH PRN PRN PRN Reason: FLUSH Ceftriaxone Sodium 1 gm/ (Dextrose) 50 mls @ 100 mls/hr IVPB DAILY [facility]; Protocol Last Admin: 01/15/20 09:26 Dose: 100 mls/hr Insulin Aspart (Novolog Vial Sliding Scale -) 1 vial SQ TIDAC [facility]; Protocol Last Admin: 01/15/20 16:51 Dose: Not Given Mupirocin (Bactroban Ointment (For Decolonization) -) 1 applic NS BID [facility] Stop: 01/16/20 09:59 Last Admin: 01/15/20 22:16 Dose: Not Given Pantoprazole Sodium (Protonix Iv) 40 mg IVPUSH DAILY [facility] Risperidone (Risperdal Oral Solution -) 2 mg GT HS [facility] Last Admin: 01/15/20 22:16 Dose: 2 mg Risperidone (Risperdal Oral Solution -) 3 mg GT DAILY [facility] Last Admin: 01/15/20 09:55 Dose: 3 mg Last Vital Signs Temp Pulse Resp BP Pulse Ox 98 F 74 20 161/86 100 01/15/20 14:00 01/15/20 18:00 01/15/20 20:07 01/15/20 18:00 01/15/20 20:07 alert in nad sister at bedside pt asking to sit OOB in chair but RN and staff concerned about safety Lungs clear Heart reg Abd soft nontender CBC, BMP 01/15/20 06:50 01/15/20 06:50 IMP- Hypernatremia resolved Hypokalemia nutritional Cognitively impaired but able to make needs know Plan - add free water to feeds - repeat labs in am - monitor bp closely,
[2020-01-16] MEDS: INSULIN SLIDING SCALE (NOVOLOG) 1 VIAL SQ SCH ×2 (06:06→17:15)
[2020-01-16 07:35] LABS: ALBUMIN 2.1 g/dl (3.4-5.0); BILIRUBIN,TOTAL 0.3 mg/dL (0.2-1); BLOOD UREA NITROGEN 50.1 mg/dL (7-18); CALCIUM 9.1 mg/dL (8.5-10.1); CREATININE 2.1 mg/dL (0.55-1.3); MAGNESIUM 2.2 mg/dL (1.8-2.4); TOT PROT 6.2 g/dl (6.4-8.2)
[2020-01-16 08:01] LABS: BASO % 0.3 % (0-2.0); EOS % 0.1 % (0-4.5); HEMATOCRIT 32.2 % (32.4-45.2); HEMOGLOBIN 10.5 GM/dL (10.7-15.3); LYMPH % 11.9 % (8-40); MCH 31.2 pg (25.7-33.7); MCHC 32.6 g/dl (32.0-36.0); MEAN CELL VOLUME 95.8 fl (80-96); MONO % 4.7 % (3.8-10.2); PLATELET COUNT 278 K/MM3 (134-434); RBC 3.36 M/mm3 (3.60-5.2); RDW 20.9 % (11.6-15.6); WHITE BLOOD COUNT 7.9 K/mm3 (4.0-10.0)
[2020-01-16] MEDS ORDERED: DEXTROSE 5%-WATER - 50 ML IVPB ONE (09:18)
[2020-01-16] MEDS ORDERED: cefTRIAXone SODIUM 1 GM VIAL ONE (09:18)
--- NOTE | 2020-01-16 09:35 | PN ---
Progress Note (short form) - Note Progress Note: s: no cp sob palps dizzy TELE: Paced, artifact - Current Medications Generic Name Dose Route Start Last Admin Trade Name Freq PRN Reason Stop Dose Admin Carvedilol 3.125 mg 01/15/20 10:00 01/15/20 22:17 Coreg - PO 3.125 mg BID [facility] Administration Chlorhexidine Gluconate 1 applic 01/13/20 22:00 01/15/20 22:17 Hibiclens For Decolonization - TP 1 applic HS [facility] Administration Heparin Sodium (Porcine) 5,000 unit 01/13/20 22:00 01/15/20 22:16 Heparin - SQ 5,000 unit BID [facility] Administration Hydrocortisone Sodium Succinate 50 mg 01/15/20 11:00 01/15/20 22:16 Solu-Cortef - IVPB 50 mg BID [facility] Administration IV Flush 10 ml 01/13/20 17:32 Joseph-Cath Flush IVPUSH PRN PRN FLUSH Ceftriaxone Sodium 1 gm/ 50 mls @ 100 mls/hr 01/15/20 10:00 01/15/20 09:26 Dextrose IVPB 100 mls/hr DAILY [facility] Administration Protocol Insulin Aspart 1 vial 01/14/20 07:00 01/16/20 06:06 Novolog Vial Sliding Scale - SQ Not Given [facility] Protocol Mupirocin 1 applic 01/13/20 22:00 01/15/20 22:16 Bactroban Ointment (For Decolonization) - NS 01/16/20 09:59 Not Given BID [facility] Pantoprazole Sodium 40 mg 01/16/20 10:00 Protonix Iv IVPUSH DAILY [facility] Risperidone 2 mg 01/13/20 22:00 01/15/20 22:16 Risperdal Oral Solution - GT 2 mg HS [facility] Administration Risperidone 3 mg 01/14/20 10:00 01/15/20 09:55 Risperdal Oral Solution - GT 3 mg DAILY [facility] Administration Vital Signs Period Temp Pulse Resp BP Sys/Schaeffer Pulse Ox Last 24 Hr 96.7 F-98 F 74-77 20-20 90-162/71-86 100-100 Constitutional: Yes: No Distress Cardiovascular: Yes: Regular Rate and Rhythm Respiratory: Yes: CTA Bilaterally Gastrointestinal: Yes: Soft (NT) Edema: No Neurological: Yes: Alert no jaundiec diaphoresis Labs: CBC, BMP 01/16/20 06:15 01/16/20 06:15 Assessment/Plan echo 12/2019 severe global hypokinesis of LV, EF 35%, tr MR, tr TR, RVSP 23 mmHg Ventricular tachycardia: - reportedly torsades in the ER and episode of VT while in ICU on amio gtt - likely in setting of electrolyte abnormalities, cardiomyopathy, amio now dc as sepsis, lytes have improved - trop neg x 3, EKG no ischemic changes, less likely ACS - cont tele. 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 Renal fx improved. chronic systolic HF: - EF 35% on echo here, CHF noted on chart from [place] - s/p PPM/ICD -will resume coreg, low dose to start -holding home lasix for now CAD: - per chart, details not known - anemic-->holding clopidogrel . - not on statin for now DM: - manage per primary schizophrenia: - Risperdal initially held do to VT, now resumed while patient remains on tele. Keep K/Mg normalized.
[2020-01-16] MEDS: CEFTRIAXONE 1 GM in DEXTROSE 5%-WATER - 50 ML IVPB SCH (09:38)
[2020-01-16] MEDS: HYDROCORTISONE SOD SUCCINATE 100 MG/2 ML VIAL IVPB SCH ×2 (09:38→21:46)
[2020-01-16] MEDS: CARVEDILOL 3.125 MG TABLET (FP) PO SCH ×2 (09:39→21:47)
[2020-01-16] MEDS: HEPARIN NA (PORCINE) 5,000 UNITS/ML 1ML VIAL SQ SCH ×2 (09:39→21:47)
[2020-01-16] MEDS: PANTOPRAZOLE SODIUM 40 MG VIAL IVPUSH SCH (09:39)
[2020-01-16] MEDS ORDERED: PT OWN MED DRAWER 7, Y5N ONE ×2 (09:50→11:50)
[2020-01-16] MEDS: risperiDONE 1 MG/1 ML ML - 30 ML BOTTLE GT SCH ×2 (09:54→21:47)
--- NOTE | 2020-01-16 10:29 | PN ---
Progress Note, Physician History of Present Illness: PULMONARY AWAKE,COMFORTABLE,-RESP DISTRESS - Current Medication List Current Medications: Active Medications Carvedilol (Coreg -) 3.125 mg PO BID [facility] Last Admin: 01/16/20 09:39 Dose: 3.125 mg Chlorhexidine Gluconate (Hibiclens For Decolonization -) 1 applic TP HS [facility] Last Admin: 01/15/20 22:17 Dose: 1 applic Heparin Sodium (Porcine) (Heparin -) 5,000 unit SQ BID [facility] Last Admin: 01/16/20 09:39 Dose: 5,000 unit Hydrocortisone Sodium Succinate (Solu-Cortef -) 50 mg IVPB BID [facility] Last Admin: 01/16/20 09:38 Dose: 50 mg IV Flush (Joseph-Cath Flush) 10 ml IVPUSH PRN PRN PRN Reason: FLUSH Ceftriaxone Sodium 1 gm/ (Dextrose) 50 mls @ 100 mls/hr IVPB DAILY [facility]; Protocol Last Admin: 01/16/20 09:38 Dose: 100 mls/hr Insulin Aspart (Novolog Vial Sliding Scale -) 1 vial SQ TIDAC [facility]; Protocol Last Admin: 01/16/20 06:06 Dose: Not Given Pantoprazole Sodium (Protonix Iv) 40 mg IVPUSH DAILY [facility] Last Admin: 01/16/20 09:39 Dose: 40 mg Risperidone (Risperdal Oral Solution -) 2 mg GT HS [facility] Last Admin: 01/15/20 22:16 Dose: 2 mg Risperidone (Risperdal Oral Solution -) 3 mg GT DAILY [facility] Last Admin: 01/16/20 09:54 Dose: 3 mg - Objective Vital Signs: Vital Signs Temperature 98 F 01/16/20 08:24 Pulse Rate 75 01/16/20 08:24 Respiratory Rate 20 01/16/20 08:24 Blood Pressure 139/76 01/16/20 08:24 O2 Sat by Pulse Oximetry (%) 100 01/16/20 08:22 Constitutional: Yes: Well Nourished, Calm Eyes: Yes: WNL HENT: Yes: WNL Neck: Yes: WNL Cardiovascular: Yes: Regular Rate and Rhythm, S1, S2 Respiratory: Yes: Diminished Gastrointestinal: Yes: Normal Bowel Sounds, Soft Extremities: Yes: WNL Edema: No Labs: CBC, BMP 01/16/20 06:15 01/16/20 06:15 Problem List - Problems (1) DONIS (acute kidney injury) Code(s): N17.9 - ACUTE KIDNEY FAILURE, UNSPECIFIED (2) Diabetes mellitus Code(s): E11.9 - TYPE 2 DIABETES MELLITUS WITHOUT COMPLICATIONS (3) H/O cerebral infarction Code(s): Z86.73 - PRSNL HX OF TIA (TIA), AND CEREB INFRC W/O RESID DEFICITS (4) HTN (hypertension) Code(s): I10 - ESSENTIAL (PRIMARY) HYPERTENSION (5) Hyperkalemia Code(s): E87.5 - HYPERKALEMIA (6) Hypothyroidism Code(s): E03.9 - HYPOTHYROIDISM, UNSPECIFIED (7) Torsades de pointes Code(s): I47.2 - VENTRICULAR TACHYCARDIA (8) Ventricular tachycardia seen on revenue agent Code(s): I47.2 - VENTRICULAR TACHYCARDIA (9) CAD (coronary artery disease) Code(s): I25.10 - ATHSCL HEART DISEASE OF [place] CORONARY ARTERY W/O ANG PCTRS (10) CHF (congestive heart failure) Code(s): I50.9 - HEART FAILURE, UNSPECIFIED (11) Acute respiratory failure Code(s): J96.00 - ACUTE RESPIRATORY FAILURE, UNSP W HYPOXIA OR HYPERCAPNIA (12) Acute respiratory failure Code(s): J96.00 - ACUTE RESPIRATORY FAILURE, UNSP W HYPOXIA OR HYPERCAPNIA Assessment/Plan ASSESSMENT AND PLAN: s/p Acute Respiratory Failure V Tach Hyperkalemia improved Pneumonia Septic Shock Acute on Chronic Renal Failure Hypercalcemia LV Systolic/Diastolic Dysfunction COPD HTN DM Anemia Schizophrenia h/o CVA - antibiotics - monitor urine output, creatinine - taper stress dose steroids - monitor QTc - monitor H/H - normal transfusion threshold - OOB to chair - enteral feeds - DVT/GI prophylaxis - Monitor lytes,renal function DR ATKINS
--- NOTE | 2020-01-16 11:25 | PN ---
Progress Note (short form) - Note Progress Note: Pt seen/ examined awake/ comfortable no distress all f/u noted started on feeding afebrile Vital Signs Temp 98 F 01/16/20 08:24 Pulse 75 01/16/20 08:24 Resp 20 01/16/20 08:24 BP 139/76 01/16/20 08:24 Pulse Ox 100 01/16/20 08:22 Intake & Output 01/15/20 01/15/20 01/16/20 11:59 23:59 11:59 Intake Total 400 790 720 Balance 400 790 720 Intake: IV 40 saline lock 40 IVPB 300 100 Oral 450 100 Tube Feeding 200 320 Tube Irrigant 200 200 Other: Voiding Method Incontinent Incontinent Incontinent # Unmeasured Voids Void 3 2 2 Bowel Movement Yes Yes # Bowel Movements 3 1 Active Medications Carvedilol (Coreg -) 3.125 mg PO BID [facility] Last Admin: 01/15/20 09:53 Dose: 3.125 mg Chlorhexidine Gluconate (Hibiclens For Decolonization -) 1 applic TP HS [facility] Last Admin: 01/14/20 21:50 Dose: Not Given Fludrocortisone Acetate (Florinef -) 0.1 mg GT DAILY [facility] Heparin Sodium (Porcine) (Heparin -) 5,000 unit SQ BID [facility] Last Admin: 01/15/20 09:32 Dose: 5,000 unit Hydrocortisone Sodium Succinate (Solu-Cortef -) 50 mg IVPB BID [facility] IV Flush (Joseph-Cath Flush) 10 ml IVPUSH PRN PRN PRN Reason: FLUSH Ceftriaxone Sodium 1 gm/ (Dextrose) 50 mls @ 100 mls/hr IVPB DAILY [facility]; Protocol Last Admin: 01/15/20 09:26 Dose: 100 mls/hr Potassium Chloride (Potassium Chloride 10 Meq Premix Ivpb -) 10 meq in 100 mls @ 100 mls/hr IVPB Q60M [facility] Stop: 01/15/20 14:29 Insulin Aspart (Novolog Vial Sliding Scale -) 1 vial SQ TIDAC [facility]; Protocol Last Admin: 01/15/20 11:29 Dose: Not Given Mupirocin (Bactroban Ointment (For Decolonization) -) 1 applic NS BID [facility] Stop: 01/16/20 09:59 Last Admin: 01/15/20 09:36 Dose: Not Given Pantoprazole Sodium (Protonix Iv) 40 mg IVPUSH DAILY [facility] Risperidone (Risperdal Oral Solution -) 2 mg GT HS [facility] Last Admin: 01/14/20 21:51 Dose: 2 mg Risperidone (Risperdal Oral Solution -) 3 mg GT DAILY [facility] Last Admin: 01/15/20 09:55 Dose: 3 mg CBC, BMP 01/16/20 06:15 01/16/20 06:15 Physical awake S1 S2 RRR Lungs clear Abd- soft, NT, GT/JT NO edema de la garza PPM Rt portacath A/P s/p Acute Respiratory Failure V Tach Electrolyte Imbalance Pneumonia Septic Shock Acute on Chronic Renal Failure CHf COPD HTN DM Anemia Schizophrenia h/o CVA s/p g/j tube Abx started on feeding k supplement as needed monitor on tele continue same meds will follow Problem List - Problems (1) DONIS (acute kidney injury) Code(s): N17.9 - ACUTE KIDNEY FAILURE, UNSPECIFIED (2) Acute renal failure superimposed on chronic kidney disease Code(s): N17.9 - ACUTE KIDNEY FAILURE, UNSPECIFIED; N18.9 - CHRONIC KIDNEY DISEASE, UNSPECIFIED (3) Diabetes mellitus Code(s): E11.9 - TYPE 2 DIABETES MELLITUS WITHOUT COMPLICATIONS (4) HTN (hypertension) Code(s): I10 - ESSENTIAL (PRIMARY) HYPERTENSION (5) Hyperkalemia Code(s): E87.5 - HYPERKALEMIA (6) Hypothyroidism Code(s): E03.9 - HYPOTHYROIDISM, UNSPECIFIED (7) Torsades de pointes Code(s): I47.2 - VENTRICULAR TACHYCARDIA
[2020-01-16 12:23] LABS: ANISOCYTOSIS 2+; MACROCYTOSIS 1+; PLATELET ESTIMATE NORMAL
[2020-01-16 13:24] VITALS: BMI 28.7
--- NOTE | 2020-01-16 19:26 | PN ---
Progress Note (short form) - Note Progress Note: covering dr eduardo Problems 1. DONIS 2. hyperkalemia 3. hypercalcemia 4. hx cva 5. hx htn 6. dm 7. resp failure requiring intubation 8. hypernatremia Active Medications Carvedilol (Coreg -) 3.125 mg PO BID [facility] Last Admin: 01/16/20 09:39 Dose: 3.125 mg Chlorhexidine Gluconate (Hibiclens For Decolonization -) 1 applic TP HS [facility] Last Admin: 01/15/20 22:17 Dose: 1 applic Heparin Sodium (Porcine) (Heparin -) 5,000 unit SQ BID [facility] Last Admin: 01/16/20 09:39 Dose: 5,000 unit Hydrocortisone Sodium Succinate (Solu-Cortef -) 50 mg IVPB BID [facility] Last Admin: 01/16/20 09:38 Dose: 50 mg IV Flush (Joseph-Cath Flush) 10 ml IVPUSH PRN PRN PRN Reason: FLUSH Ceftriaxone Sodium 1 gm/ (Dextrose) 50 mls @ 100 mls/hr IVPB DAILY [facility]; Protocol Last Admin: 01/16/20 09:38 Dose: 100 mls/hr Insulin Aspart (Novolog Vial Sliding Scale -) 1 vial SQ TIDAC [facility]; Protocol Last Admin: 01/16/20 17:15 Dose: Not Given Pantoprazole Sodium (Protonix Iv) 40 mg IVPUSH DAILY [facility] Last Admin: 01/16/20 09:39 Dose: 40 mg Risperidone (Risperdal Oral Solution -) 2 mg GT HS [facility] Last Admin: 01/15/20 22:16 Dose: 2 mg Risperidone (Risperdal Oral Solution -) 3 mg GT DAILY [facility] Last Admin: 01/16/20 09:54 Dose: 3 mg Last Vital Signs Temp Pulse Resp BP Pulse Ox 98 F 75 20 131/89 100 01/16/20 14:00 01/16/20 14:00 01/16/20 14:00 01/16/20 14:00 01/16/20 08:22 alert in nad Lungs clear Heart reg Abd soft nontender CBC, BMP 01/16/20 06:15 01/16/20 06:15 CBC, BMP 01/15/20 06:50 01/15/20 06:50 IMP- Hypernatremia resolved Hypokalemia nutritional Cognitively impaired but able to make needs know Plan - add free water to feeds - repeat labs in am - monitor bp closely,
[2020-01-16] MEDS: CHLORHEXIDINE GLUCONATE 4% CLEANSER FOR DECOLONIZATION TP SCH (21:47)
[2020-01-17] MEDS: INSULIN SLIDING SCALE (NOVOLOG) 1 VIAL SQ SCH ×2 (06:25→12:07)
[2020-01-17] MEDS ORDERED: DEXTROSE 5%-WATER - 50 ML IVPB ONE (08:21)
[2020-01-17] MEDS ORDERED: cefTRIAXone SODIUM 1 GM VIAL ONE (08:21)
[2020-01-17] MEDS: HYDROCORTISONE SOD SUCCINATE 100 MG/2 ML VIAL IVPB SCH ×3 (09:20→21:22)
[2020-01-17] MEDS: CEFTRIAXONE 1 GM in DEXTROSE 5%-WATER - 50 ML IVPB SCH (09:21)
[2020-01-17] MEDS: CARVEDILOL 3.125 MG TABLET (FP) PO SCH ×2 (09:21→21:16)
[2020-01-17] MEDS: risperiDONE 1 MG/1 ML ML - 30 ML BOTTLE GT SCH ×2 (09:22→21:22)
[2020-01-17] MEDS: PANTOPRAZOLE SODIUM 40 MG VIAL IVPUSH SCH (09:22)
[2020-01-17] MEDS: HEPARIN NA (PORCINE) 5,000 UNITS/ML 1ML VIAL SQ SCH ×2 (09:22→21:21)
--- NOTE | 2020-01-17 09:50 | PN ---
Progress Note (short form) - Note Progress Note: Pt seen/ examined awake/ comfortable no distress all f/u noted started on feeding afebrile Vital Signs Temp 97.0 F L 01/17/20 07:41 Pulse 73 01/17/20 07:41 Resp 20 01/17/20 07:44 BP 119/68 01/17/20 07:41 Pulse Ox 100 01/17/20 07:44 Intake & Output 01/16/20 01/16/20 01/17/20 11:59 23:59 11:59 Intake Total 720 220 650 Balance 720 220 650 Weight 162 lb 11.2 oz Intake: IV 20 saline lock 20 IVPB 100 50 Oral 100 150 150 Tube Feeding 320 300 Tube Irrigant 200 200 Other: Voiding Method Incontinent Diaper Incontinent # Unmeasured Voids Void 2 3 3 Bowel Movement Yes # Bowel Movements 1 Body Mass Index (BMI) 28.7 [facility] Active Medications Carvedilol (Coreg -) 3.125 mg PO BID [facility] Last Admin: 01/17/20 09:21 Dose: 3.125 mg Chlorhexidine Gluconate (Hibiclens For Decolonization -) 1 applic TP HS [facility] Last Admin: 01/16/20 21:47 Dose: 1 applic Heparin Sodium (Porcine) (Heparin -) 5,000 unit SQ BID [facility] Last Admin: 01/17/20 09:22 Dose: 5,000 unit Hydrocortisone Sodium Succinate (Solu-Cortef -) 25 mg IVPB BID [facility] IV Flush (Joseph-Cath Flush) 10 ml IVPUSH PRN PRN PRN Reason: FLUSH Last Admin: 01/16/20 21:48 Dose: 10 ml Ceftriaxone Sodium 1 gm/ (Dextrose) 50 mls @ 100 mls/hr IVPB DAILY [facility]; Protocol Last Admin: 01/17/20 09:21 Dose: 100 mls/hr Insulin Aspart (Novolog Vial Sliding Scale -) 1 vial SQ [facility]IDAC [facility]; Protocol Last Admin: 01/17/20 06:25 Dose: Not Given Pantoprazole Sodium (Protonix Iv) 40 mg IVPUSH DAILY [facility] Last Admin: 01/17/20 09:22 Dose: 40 mg Risperidone (Risperdal Oral Solution -) 2 mg GT HS [facility] Last Admin: 01/16/20 21:47 Dose: 2 mg Risperidone (Risperdal Oral Solution -) 3 mg GT DAILY [facility] Last Admin: 01/17/20 09:22 Dose: 1 ml CBC, BMP 01/16/20 06:15 01/16/20 06:15 Physical awake S1 S2 RRR Lungs clear Abd- soft, NT, GT/JT NO edema de la garza PPM Rt portacath A/P s/p Acute Respiratory Failure V Tach Electrolyte Imbalance Pneumonia Septic Shock Acute on Chronic Renal Failure CHf COPD HTN DM Anemia Schizophrenia h/o CVA s/p g/j tube Abx started on feeding k supplement as needed monitor on tele continue same meds-- taper solumedrol Monitor labs - cr improving will follow Problem List - Problems (1) DONIS (acute kidney injury) Code(s): N17.9 - ACUTE KIDNEY FAILURE, UNSPECIFIED (2) Acute renal failure superimposed on chronic kidney disease Code(s): N17.9 - ACUTE KIDNEY FAILURE, UNSPECIFIED; N18.9 - CHRONIC KIDNEY DISEASE, UNSPECIFIED (3) Diabetes mellitus Code(s): E11.9 - TYPE 2 DIABETES MELLITUS WITHOUT COMPLICATIONS (4) HTN (hypertension) Code(s): I10 - ESSENTIAL (PRIMARY) HYPERTENSION (5) Hyperkalemia Code(s): E87.5 - HYPERKALEMIA (6) Hypothyroidism Code(s): E03.9 - HYPOTHYROIDISM, UNSPECIFIED (7) Torsades de pointes Code(s): I47.2 - VENTRICULAR TACHYCARDIA
--- NOTE | 2020-01-17 10:18 | PN ---
Progress Note, Physician History of Present Illness: denies palp, sob, cp, syncope - Current Medication List Current Medications: Active Medications Carvedilol (Coreg -) 3.125 mg PO BID [facility] Last Admin: 01/17/20 09:21 Dose: 3.125 mg Chlorhexidine Gluconate (Hibiclens For Decolonization -) 1 applic TP HS [facility] Last Admin: 01/16/20 21:47 Dose: 1 applic Heparin Sodium (Porcine) (Heparin -) 5,000 unit SQ BID [facility] Last Admin: 01/17/20 09:22 Dose: 5,000 unit Hydrocortisone Sodium Succinate (Solu-Cortef -) 25 mg IVPB BID [facility] Last Admin: 01/17/20 10:11 Dose: Not Given IV Flush (Joseph-Cath Flush) 10 ml IVPUSH PRN PRN PRN Reason: FLUSH Last Admin: 01/16/20 21:48 Dose: 10 ml Ceftriaxone Sodium 1 gm/ (Dextrose) 50 mls @ 100 mls/hr IVPB DAILY [facility]; Protocol Last Admin: 01/17/20 09:21 Dose: 100 mls/hr Insulin Aspart (Novolog Vial Sliding Scale -) 1 vial SQ TIDAC [facility]; Protocol Last Admin: 01/17/20 06:25 Dose: Not Given Pantoprazole Sodium (Protonix Iv) 40 mg IVPUSH DAILY [facility] Last Admin: 01/17/20 09:22 Dose: 40 mg Risperidone (Risperdal Oral Solution -) 2 mg GT HS [facility] Last Admin: 01/16/20 21:47 Dose: 2 mg Risperidone (Risperdal Oral Solution -) 3 mg GT DAILY [facility] Last Admin: 01/17/20 09:22 Dose: 1 ml - Objective Vital Signs: Vital Signs Temperature 97.0 F L 01/17/20 07:41 Pulse Rate 73 01/17/20 07:41 Respiratory Rate 20 01/17/20 07:44 Blood Pressure 119/68 01/17/20 07:41 O2 Sat by Pulse Oximetry (%) 100 01/17/20 07:44 Constitutional: Yes: Well Nourished, No Distress, Calm Cardiovascular: Yes: Regular Rate and Rhythm, Murmur (2/6 ELBA lusb), S1, S2. No : Gallop Respiratory: Yes: Regular, CTA Bilaterally. No: Accessory Muscle Use, Rales ( tds (leo)) Extremities: No: Cold Edema: No Neurological: Yes: Alert. No: Seizure Psychiatric: No: Agitated Labs: CBC, BMP 01/16/20 06:15 01/16/20 06:15 Assessment/Plan echo 12/2019 severe global hypokinesis of LV, EF 35%. nl RV. valves WNL. 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 low threshold to stop this if QT 500+ - accelerated junctional rhythm is stable rhythm, requires no specific intervention (has pacing capacity from icd) septic shock, UTI: - manage per primary, ID - off pressors now, extubated DONIS on CKD: - renal following. Renal fx improved. chronic systolic HF: - EF 35% on echo here, CHF [facility] - s/p PPM/ICD - home carvedilol 12.5 held initially--resumed at 3.125. bp stable--incr to 6.25 --aim to titrate up as bp tolerates - not on ZAYRA/ARB per admit med list, h/o "allergy" to lisinopril--defer to outpt cardio - holding home lasix for now CAD: - per chart, details not known - anemic-->holding clopidogrel--the level of indication for this should be decided on by her outpt professor of environmental engineering within 2 wks of hosp discharge - not on statin for now - no angina or signs of ACS here DM: - manage per primary schizophrenia: - Risperdal initially held do to VT, now resumed since QT normalized--as above
--- NOTE | 2020-01-17 12:05 | PN ---
Progress Note, RUBBER TRIMMER - Note Progress Note: Selected Entries 01/15/20 01/16/20 01/16/20 18:00 02:00 05:16 Breakfast Supper 25% Temperature 96.7 F L 97 F L 01/16/20 01/16/20 01/16/20 08:24 14:00 18:00 Breakfast Supper 25% Temperature 98 F 98 F 97.2 F L 01/16/20 01/17/20 01/17/20 22:00 02:00 06:00 Breakfast Supper Temperature 97.7 F 97 F L 96.2 F L 01/17/20 01/17/20 07:41 10:03 Breakfast 25% Supper Temperature 94.6 F L Laboratory Tests 01/16/20 06:[address] recommended Nepro via Jtube from 6 pm to 10 am (16 hours) @ 55 cc/hr total volume 880 ml to provide: 1584 cals; 71 gm protein and 640 ml water with 30 cc H20 flush/hr of feed to total 1600 cc water Recommend Trial of Ensure pudding @ L and D Pt taking only 25% of puree. Suggest RD f/u to calculate if pt is receiving sufficient calories/hydration via nocturnal feedings with limited PO acceptance.
--- NOTE | 2020-01-17 12:11 | EKG ---
Test Reason : Blood Pressure : / mmHG Vent. Rate : 075 BPM Atrial Rate : 075 BPM P-R Int : 202 ms QRS Dur : 094 ms QT Int : 422 ms P-R-T Axes : 012 -31 -31 degrees QTc Int : 471 ms Atrial-paced rhythm LEFT AXIS DEVIATION PROLONGED QT ABNORMAL ECG WHEN COMPARED WITH ECG OF 13-JAN-2020 08:47, T WAVE INVERSION NOW EVIDENT IN ANTERIOR LEADS Confirmed by Ace Farrar ([id number]) on 01/17/2020 12:10:47 PM Referred By: JENNA CAM DR Confirmed By:Ace Farrar
--- NOTE | 2020-01-17 12:28 | PN ---
Progress Note (short form) - Note Progress Note: PULMONARY Denies shortness of breath or chest pain. Wants to eat. Vital Signs Period Temp Pulse Resp BP Sys/Schaeffer Pulse Ox Last 24 Hr 94.6 F-98 F 73-90 20-20 100-150/60-93 100-100 Gen: NAD at rest Heart: RRR Lung: decreased breath sounds at the bases Abd: soft, nontender Ext: no edema CBC, BMP 01/16/20 06:15 01/16/20 06:15 Active Medications Carvedilol (Coreg -) 6.25 mg PO BID [facility] Chlorhexidine Gluconate (Hibiclens For Decolonization -) 1 applic TP HS [facility] Last Admin: 01/16/20 21:47 Dose: 1 applic Heparin Sodium (Porcine) (Heparin -) 5,000 unit SQ BID [facility] Last Admin: 01/17/20 09:22 Dose: 5,000 unit Hydrocortisone Sodium Succinate (Solu-Cortef -) 25 mg IVPB BID [facility] Last Admin: 01/17/20 10:11 Dose: Not Given IV Flush (Joseph-Cath Flush) 10 ml IVPUSH PRN PRN PRN Reason: FLUSH Last Admin: 01/16/20 21:48 Dose: 10 ml Ceftriaxone Sodium 1 gm/ (Dextrose) 50 mls @ 100 mls/hr IVPB DAILY [facility]; Protocol Last Admin: 01/17/20 09:21 Dose: 100 mls/hr Insulin Aspart (Novolog Vial Sliding Scale -) 1 vial SQ TIDAC [facility]; Protocol Last Admin: 01/17/20 12:07 Dose: Not Given Pantoprazole Sodium (Protonix Iv) 40 mg IVPUSH DAILY [facility] Last Admin: 01/17/20 09:22 Dose: 40 mg Risperidone (Risperdal Oral Solution -) 2 mg GT HS [facility] Last Admin: 01/16/20 21:47 Dose: 2 mg Risperidone (Risperdal Oral Solution -) 3 mg GT DAILY [facility] Last Admin: 01/17/20 09:22 Dose: 1 ml A/P s/p Acute Respiratory Failure V Tach Hyperkalemia improved Pneumonia Septic Shock resolving Acute on Chronic Renal Failure Hypercalcemia LV Systolic/Diastolic Dysfunction COPD HTN DM Anemia Schizophrenia h/o CVA - complete antibiotics - monitor urine output, creatinine - taper stress dose steroids to home dose - monitor QTc - monitor H/H - OOB to chair - enteral feeds - DVT/GI prophylaxis
--- NOTE | 2020-01-17 13:34 | PN ---
Progress Note, Physician History of Present Illness: Pt seen and examined at bedside. SHe is awake and appears comfortable. - Current Medication List Current Medications: Active Medications Carvedilol (Coreg -) 6.25 mg PO BID [facility] Chlorhexidine Gluconate (Hibiclens For Decolonization -) 1 applic TP HS [facility] Last Admin: 01/16/20 21:47 Dose: 1 applic Heparin Sodium (Porcine) (Heparin -) 5,000 unit SQ BID [facility] Last Admin: 01/17/20 09:22 Dose: 5,000 unit Hydrocortisone Sodium Succinate (Solu-Cortef -) 25 mg IVPB BID [facility] Last Admin: 01/17/20 10:11 Dose: Not Given IV Flush (Joseph-Cath Flush) 10 ml IVPUSH PRN PRN PRN Reason: FLUSH Last Admin: 01/16/20 21:48 Dose: 10 ml Ceftriaxone Sodium 1 gm/ (Dextrose) 50 mls @ 100 mls/hr IVPB DAILY [facility]; Protocol Last Admin: 01/17/20 09:21 Dose: 100 mls/hr Insulin Aspart (Novolog Vial Sliding Scale -) 1 vial SQ TIDAC [facility]; Protocol Last Admin: 01/17/20 12:07 Dose: Not Given Pantoprazole Sodium (Protonix Iv) 40 mg IVPUSH DAILY [facility] Last Admin: 01/17/20 09:22 Dose: 40 mg Risperidone (Risperdal Oral Solution -) 2 mg GT HS [facility] Last Admin: 01/16/20 21:47 Dose: 2 mg Risperidone (Risperdal Oral Solution -) 3 mg GT DAILY [facility] Last Admin: 01/17/20 09:22 Dose: 1 ml - Objective Vital Signs: Vital Signs Temperature 94.6 F L 01/17/20 07:41 Pulse Rate 73 01/17/20 07:41 Respiratory Rate 20 01/17/20 07:44 Blood Pressure 100/63 01/17/20 07:41 O2 Sat by Pulse Oximetry (%) 100 01/17/20 07:44 Constitutional: Yes: Calm Eyes: Yes: Conjunctiva Clear HENT: Yes: Atraumatic Neck: Yes: Supple Cardiovascular: Yes: S1, S2 Respiratory: Yes: CTA Bilaterally Gastrointestinal: Yes: Soft Genitourinary: Yes: WNL Musculoskeletal: Yes: WNL Edema: No Integumentary: Yes: WNL Neurological: Yes: Confusion Labs: CBC, BMP 02/23/20 06:15 01/16/20 06:15 Problem List - Problems (1) DONIS (acute kidney injury) Code(s): N17.9 - ACUTE KIDNEY FAILURE, UNSPECIFIED (2) Hyperkalemia Code(s): E87.5 - HYPERKALEMIA (3) CAD (coronary artery disease) Code(s): I25.10 - ATHSCL HEART DISEASE OF [place] CORONARY ARTERY W/O ANG PCTRS (4) CHF (congestive heart failure) Code(s): I50.9 - HEART FAILURE, UNSPECIFIED Assessment/Plan Current Medications Generic Name Dose Route Start Last Admin Trade Name Freq PRN Reason Stop Dose Admin Carvedilol 6.25 mg 01/17/20 22:00 Coreg - PO BID [facility] Chlorhexidine Gluconate 1 applic 01/13/20 22:00 01/16/20 21:47 Hibiclens For Decolonization - TP 1 applic HS [facility] Administration Heparin Sodium (Porcine) 5,000 unit 01/13/20 22:00 01/17/20 09:22 Heparin - SQ 5,000 unit BID [facility] Administration Hydrocortisone Sodium Succinate 25 mg 01/17/20 09:48 01/17/20 10:11 Solu-Cortef - IVPB Not Given BID [facility] IV Flush 10 ml 01/13/20 17:32 01/16/20 21:48 Joseph-Cath Flush IVPUSH 10 ml PRN PRN Administration FLUSH Ceftriaxone Sodium 1 gm/ 50 mls @ 100 mls/hr 01/15/20 10:00 01/17/20 09:21 Dextrose IVPB 100 mls/hr DAILY [facility] Administration Protocol Insulin Aspart 1 vial 01/14/20 07:00 01/17/20 12:07 Novolog Vial Sliding Scale - SQ Not Given TIDAC [facility] Protocol Pantoprazole Sodium 40 mg 01/16/20 10:00 01/17/20 09:22 Protonix Iv IVPUSH 40 mg DAILY [facility] Administration Risperidone 2 mg 01/13/20 22:00 01/16/20 21:47 Risperdal Oral Solution - GT 2 mg HS [facility] Administration Risperidone 3 mg 01/14/20 10:00 01/17/20 09:22 Risperdal Oral Solution - GT 1 ml DAILY [facility] Administration Impression 1. DONIS 2. hyperkalemia 3. hypercalcemia 4. hx cva 5. hx htn 6. dm 7. resp failure requiring intubation 8. hypernatremia Plan - renal function improving - repeat labs in am - encourage po intake - avoid nsaids - monitor bp closely, avoid hypotension
[2020-01-17] MEDS ORDERED: PT OWN MED DRAWER 7, Y5N ONE (20:59)
[2020-01-17] MEDS: CHLORHEXIDINE GLUCONATE 4% CLEANSER FOR DECOLONIZATION TP SCH (21:21)
[2020-01-18] MEDS ORDERED: cefTRIAXone SODIUM 1 GM VIAL ONE (09:04)
[2020-01-18] MEDS ORDERED: DEXTROSE 5%-WATER - 50 ML IVPB ONE (09:04)
[2020-01-18] MEDS ORDERED: PT OWN MED DRAWER 7, Y5N ONE ×3 (09:04→21:54)
[2020-01-18] MEDS: INSULIN SLIDING SCALE (NOVOLOG) 1 VIAL SQ SCH ×3 (09:54→16:28)
[2020-01-18] MEDS: HEPARIN NA (PORCINE) 5,000 UNITS/ML 1ML VIAL SQ SCH ×2 (09:55→23:28)
[2020-01-18] MEDS: CARVEDILOL 3.125 MG TABLET (FP) PO SCH ×2 (09:55→23:28)
[2020-01-18] MEDS: CEFTRIAXONE 1 GM in DEXTROSE 5%-WATER - 50 ML IVPB SCH (09:55)
[2020-01-18] MEDS: risperiDONE 1 MG/1 ML ML - 30 ML BOTTLE GT SCH ×2 (09:55→23:29)
[2020-01-18] MEDS: PANTOPRAZOLE SODIUM 40 MG VIAL IVPUSH SCH (09:55)
[2020-01-18] MEDS: HYDROCORTISONE SOD SUCCINATE 100 MG/2 ML VIAL IVPB SCH (09:57)
--- NOTE | 2020-01-18 10:28 | PN ---
Progress Note, Physician History of Present Illness: pulmonary alert,no distress,-dyspnea - Current Medication List Current Medications: Active Medications Carvedilol (Coreg -) 6.25 mg PO BID [facility] Last Admin: 01/18/20 09:55 Dose: 6.25 mg Chlorhexidine Gluconate (Hibiclens For Decolonization -) 1 applic TP HS [facility] Last Admin: 01/17/20 21:21 Dose: Not Given Heparin Sodium (Porcine) (Heparin -) 5,000 unit SQ BID [facility] Last Admin: 01/18/20 09:55 Dose: 5,000 unit Hydrocortisone Sodium Succinate (Solu-Cortef -) 25 mg IVPB BID [facility] Last Admin: 01/18/20 09:57 Dose: 25 mg IV Flush (Joseph-Cath Flush) 10 ml IVPUSH PRN PRN PRN Reason: FLUSH Last Admin: 01/16/20 21:48 Dose: 10 ml Ceftriaxone Sodium 1 gm/ (Dextrose) 50 mls @ 100 mls/hr IVPB DAILY [facility]; Protocol Last Admin: 01/18/20 09:55 Dose: 100 mls/hr Insulin Aspart (Novolog Vial Sliding Scale -) 1 vial SQ TIDAC [facility]; Protocol Last Admin: 01/18/20 09:54 Dose: Not Given Pantoprazole Sodium (Protonix Iv) 40 mg IVPUSH DAILY [facility] Last Admin: 01/18/20 09:55 Dose: 40 mg Risperidone (Risperdal Oral Solution -) 2 mg GT HS [facility] Last Admin: 01/17/20 21:22 Dose: 2 mg Risperidone (Risperdal Oral Solution -) 3 mg GT DAILY [facility] Last Admin: 01/18/20 09:55 Dose: 3 ml - Objective Vital Signs: Vital Signs Temperature 98.2 F 01/18/20 06:00 Pulse Rate 75 01/18/20 06:00 Respiratory Rate 18 01/18/20 06:00 Blood Pressure 135/69 01/18/20 06:00 O2 Sat by Pulse Oximetry (%) 97 01/17/20 20:27 Constitutional: Yes: Well Nourished, Calm Eyes: Yes: WNL HENT: Yes: WNL Neck: Yes: WNL Cardiovascular: Yes: Regular Rate and Rhythm, S1, S2 Respiratory: Yes: Diminished (poor inspiratory) Gastrointestinal: Yes: Normal Bowel Sounds, Soft Extremities: Yes: WNL Edema: No Labs: Problem List - Problems (1) DONIS (acute kidney injury) Code(s): N17.9 - ACUTE KIDNEY FAILURE, UNSPECIFIED (2) Diabetes mellitus Code(s): E11.9 - TYPE 2 DIABETES MELLITUS WITHOUT COMPLICATIONS (3) H/O cerebral infarction Code(s): Z86.73 - PRSNL HX OF TIA (TIA), AND CEREB INFRC W/O RESID DEFICITS (4) HTN (hypertension) Code(s): I10 - ESSENTIAL (PRIMARY) HYPERTENSION (5) Hyperkalemia Code(s): E87.5 - HYPERKALEMIA (6) Hypothyroidism Code(s): E03.9 - HYPOTHYROIDISM, UNSPECIFIED (7) Torsades de pointes Code(s): I47.2 - VENTRICULAR TACHYCARDIA (8) Ventricular tachycardia seen on director of outside sales Code(s): I47.2 - VENTRICULAR TACHYCARDIA (9) CAD (coronary artery disease) Code(s): I25.10 - ATHSCL HEART DISEASE OF [place] CORONARY ARTERY W/O ANG PCTRS (10) CHF (congestive heart failure) Code(s): I50.9 - HEART FAILURE, UNSPECIFIED (11) Acute respiratory failure Code(s): J96.00 - ACUTE RESPIRATORY FAILURE, UNSP W HYPOXIA OR HYPERCAPNIA (12) Acute respiratory failure Code(s): J96.00 - ACUTE RESPIRATORY FAILURE, UNSP W HYPOXIA OR HYPERCAPNIA Assessment/Plan ASSESSMENT AND PLAN: s/p Acute Respiratory Failure V Tach Hyperkalemia improved Pneumonia Septic Shock Acute on Chronic Renal Failure Hypercalcemia LV Systolic/Diastolic Dysfunction COPD HTN DM Anemia Schizophrenia h/o CVA - antibiotics - monitor urine output, creatinine - monitor QTc - monitor H/H - normal transfusion threshold - OOB to chair - enteral feeds - DVT/GI prophylaxis - Monitor lytes,renal function - taper steroids DR ATKINS
--- NOTE | 2020-01-18 11:36 | PN ---
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 NO LIQUIDS Case reviewed with nursing/RD
--- NOTE | 2020-01-18 11:42 | PN ---
Progress Note (short form) - Note Progress Note: s: lethargic, not answering questions no cigs Current Medications Carvedilol (Coreg -) 6.25 mg PO BID [facility] Last Admin: 01/18/20 09:55 Dose: 6.25 mg Chlorhexidine Gluconate (Hibiclens For Decolonization -) 1 applic TP HS [facility] Last Admin: 01/17/20 21:21 Dose: Not Given Heparin Sodium (Porcine) (Heparin -) 5,000 unit SQ BID [facility] Last Admin: 01/18/20 09:55 Dose: 5,000 unit Hydrocortisone Sodium Succinate (Solu-Cortef -) 25 mg IVPB BID [facility] Last Admin: 01/18/20 09:57 Dose: 25 mg IV Flush (Joseph-Cath Flush) 10 ml IVPUSH PRN PRN PRN Reason: FLUSH Last Admin: 01/16/20 21:48 Dose: 10 ml Ceftriaxone Sodium 1 gm/ (Dextrose) 50 mls @ 100 mls/hr IVPB DAILY [facility]; Protocol Last Admin: 01/18/20 09:55 Dose: 100 mls/hr Insulin Aspart (Novolog Vial Sliding Scale -) 1 vial SQ TIDAC [facility]; Protocol Last Admin: 01/18/20 09:54 Dose: Not Given Pantoprazole Sodium (Protonix Iv) 40 mg IVPUSH DAILY [facility] Last Admin: 01/18/20 09:55 Dose: 40 mg Risperidone (Risperdal Oral Solution -) 2 mg GT HS [facility] Last Admin: 01/17/20 21:22 Dose: 2 mg Risperidone (Risperdal Oral Solution -) 3 mg GT DAILY [facility] Last Admin: 01/18/20 09:55 Dose: 3 ml Vital Signs Period Temp Pulse Resp BP Sys/Schaeffer Pulse Ox Last 24 Hr 95.0 F-98.2 F 75-80 18-72 99-154/54-89 90-97 Constitutional: Yes: Well Nourished, No Distress, Calm Cardiovascular: Yes: Regular Rate and Rhythm, Murmur (2/6 ELBA lusb), S1, S2. No : Gallop Respiratory: Yes: Regular, CTA Bilaterally. No: Accessory Muscle Use, Rales ( tds (leo)) Extremities: No: Cold Edema: No Neurological: Yes: Alert. No: Seizure Psychiatric: No: Agitated no jaundice, diaphoresis Assessment/Plan echo 12/2019 severe global hypokinesis of LV, EF 35%. nl RV. valves WNL. 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 - no VT or VF noted including during ER and ICU - QT normal 01/13--risperidone resumed--repeat ecg 01/17 QT remains stable. low threshold to stop this if QT 500+ afib - EGM from 11/11 showing approx 1 min afib; longest atrial hi rate episode (no EGM) 02/2019 approx 1 hour, max A rate measured close to 600 bpm 3) atrial rate histograms during mode switching showing the majority of rates in the >300 bpm range - not definitive but suspicious for afib - this is an old device which does not store EGM so data is limited - d/w patient's niece/HCP- no known hx afib but was not involved much in her care until now, lived in [place] up until 2-3 weeks ago - has history of blood transfusions, not sure why, and has had falls although not recently - if true significant PAF burden, CHADS VASC 4-5 (? CAD history), however given above will defer AC for now, pending PT eval and rehab as well as obtaining more information from prior doctors, which nimatthieu has been looking into. She agrees with plan to defer AC - will consider outpatient event monitor following dc s/p PPM - [employer] device - 6 months battery life left - needs close outpatient follow up - discussed with niece/HCP - was not aware of ppm septic shock, UTI: - manage per primary, ID - off pressors now, extubated DONIS on CKD: - renal following. Renal fx improved. chronic systolic HF: - EF 35% on echo here, CHF noted on chart from [place] - s/p PPM/ICD - home carvedilol 12.5 held initially--resumed at 3.125. 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
--- NOTE | 2020-01-18 12:40 | PN ---
Progress Note (short form) - Note Progress Note: Pt examined awake non labored breathing taking puree food along with J tube feeds Vital Signs - 24 hr 01/18/20 01/18/20 01/18/20 02:00 06:00 09:00 Temperature 97.4 F L 98.2 F Pulse Rate 76 75 Respiratory 20 18 18 Rate Blood Pressure 99/57 L 135/69 O2 Sat by Pulse 90 L Oximetry (%) 01/18/20 01/18/20 01/18/20 10:00 15:00 17:00 Temperature 97.3 F L 97.4 F L 97.4 F L Pulse Rate 75 75 75 Respiratory 18 18 20 Rate Blood Pressure 122/54 L 128/70 134/58 L O2 Sat by Pulse Oximetry (%) 01/18/20 20:30 Temperature 97.9 F Pulse Rate 80 Respiratory 20 Rate Blood Pressure 126/56 L O2 Sat by Pulse 94 L Oximetry (%) Current Medications Generic Name Dose Route Start Last Admin Trade Name Freq PRN Reason Stop Dose Admin Carvedilol 6.25 mg 01/17/20 22:00 01/18/20 09:55 Coreg - PO 6.25 mg BID [facility] Administration Chlorhexidine Gluconate 1 applic 01/13/20 22:00 01/17/20 21:21 Hibiclens For Decolonization - TP Not Given HS [facility] Heparin Sodium (Porcine) 5,000 unit 01/13/20 22:00 01/18/20 09:55 Heparin - SQ 5,000 unit BID [facility] Administration Hydrocortisone Sodium Succinate 25 mg 01/19/20 10:00 Solu-Cortef - IVPB DAILY [facility] IV Flush 10 ml 01/13/20 17:32 01/16/20 21:48 Joseph-Cath Flush IVPUSH 10 ml PRN PRN Administration FLUSH Ceftriaxone Sodium 1 gm/ 50 mls @ 100 mls/hr 01/15/20 10:00 01/18/20 09:55 Dextrose IVPB 100 mls/hr DAILY [facility] Administration Protocol Insulin Aspart 1 vial 01/14/20 07:00 01/18/20 16:28 Novolog Vial Sliding Scale - SQ Not Given TIDAC [facility] Protocol Pantoprazole Sodium 40 mg 01/16/20 10:00 01/18/20 09:55 Protonix Iv IVPUSH 40 mg DAILY [facility] Administration Risperidone 2 mg 01/13/20 22:00 02/24/20 21:22 Risperdal Oral Solution - GT 2 mg HS [facility] Administration Risperidone 3 mg 01/14/20 10:00 01/18/20 09:55 Risperdal Oral Solution - GT 3 ml DAILY [facility] Administration Laboratory Results - last 24 hr 01/18/20 01/18/20 01/18/20 08:43 11:54 16:18 POC Glucometer 86 92 105 s1 S2 RRR Lungs decreased Abd- soft, Jtube+ no edema A/P Septic shock Adrenal crisis Respiratory failure S/p V tach and Torsades Hyperkalemia--> resolved -- feeding as tolerated -- renal function at baseline -- iv antibiotics for UTI -- taper solu cortef -- clinically better -- dc planning -- continue with meds Problem List - Problems (1) DONIS (acute kidney injury) Code(s): N17.9 - ACUTE KIDNEY FAILURE, UNSPECIFIED (2) Acute renal failure superimposed on chronic kidney disease Code(s): N17.9 - ACUTE KIDNEY FAILURE, UNSPECIFIED; N18.9 - CHRONIC KIDNEY DISEASE, UNSPECIFIED (3) Diabetes mellitus Code(s): E11.9 - TYPE 2 DIABETES MELLITUS WITHOUT COMPLICATIONS (4) H/O cerebral infarction Code(s): Z86.73 - PRSNL HX OF TIA (TIA), AND CEREB INFRC W/O RESID DEFICITS (5) HTN (hypertension) Code(s): I10 - ESSENTIAL (PRIMARY) HYPERTENSION (6) Hyperkalemia Code(s): E87.5 - HYPERKALEMIA (7) Hypothyroidism Code(s): E03.9 - HYPOTHYROIDISM, UNSPECIFIED (8) Torsades de pointes Code(s): I47.2 - VENTRICULAR TACHYCARDIA (9) Adrenal insufficiency Code(s): E27.40 - UNSPECIFIED ADRENOCORTICAL INSUFFICIENCY (10) CAD (coronary artery disease) Code(s): I25.10 - ATHSCL HEART DISEASE OF [place] CORONARY ARTERY W/O ANG PCTRS
[2020-01-18] MEDS ORDERED: LORazepam 2 MG/ML SDV VIAL IVPUSH PRN (13:09)
--- NOTE | 2020-01-18 15:07 | PN ---
Progress Note, Physician History of Present Illness: Pt seen and examined at bedside. She is awake and appears comfortable. She is tolerating tube feeds. - Current Medication List Current Medications: Active Medications Carvedilol (Coreg -) 6.25 mg PO BID [facility] Last Admin: 01/18/20 09:55 Dose: 6.25 mg Chlorhexidine Gluconate (Hibiclens For Decolonization -) 1 applic TP HS [facility] Last Admin: 01/17/20 21:21 Dose: Not Given Heparin Sodium (Porcine) (Heparin -) 5,000 unit SQ BID [facility] Last Admin: 01/18/20 09:55 Dose: 5,000 unit Hydrocortisone Sodium Succinate (Solu-Cortef -) 25 mg IVPB DAILY [facility] IV Flush (Joseph-Cath Flush) 10 ml IVPUSH PRN PRN PRN Reason: FLUSH Last Admin: 01/16/20 21:48 Dose: 10 ml Ceftriaxone Sodium 1 gm/ (Dextrose) 50 mls @ 100 mls/hr IVPB DAILY [facility]; Protocol Last Admin: 01/18/20 09:55 Dose: 100 mls/hr Insulin Aspart (Novolog Vial Sliding Scale -) 1 vial SQ TIDAC [facility]; Protocol Last Admin: 01/18/20 13:09 Dose: Not Given Pantoprazole Sodium (Protonix Iv) 40 mg IVPUSH DAILY [facility] Last Admin: 01/18/20 09:55 Dose: 40 mg Risperidone (Risperdal Oral Solution -) 2 mg GT HS [facility] Last Admin: 01/17/20 21:22 Dose: 2 mg Risperidone (Risperdal Oral Solution -) 3 mg GT DAILY [facility] Last Admin: 01/18/20 09:55 Dose: 3 ml - Objective Vital Signs: Vital Signs Temperature 97.3 F L 01/18/20 10:00 Pulse Rate 75 01/18/20 10:00 Respiratory Rate 18 01/18/20 10:00 Blood Pressure 122/54 L 01/18/20 10:00 O2 Sat by Pulse Oximetry (%) 90 L 01/18/20 09:00 Constitutional: Yes: Calm Eyes: Yes: Conjunctiva Clear HENT: Yes: Atraumatic Neck: Yes: Supple Cardiovascular: Yes: S1, S2 Respiratory: Yes: CTA Bilaterally Gastrointestinal: Yes: Soft Genitourinary: Yes: Incontinence Musculoskeletal: Yes: WNL Edema: No Neurological: Yes: Confusion Labs: CBC, BMP 01/16/20 06:15 01/16/20 06:15 Problem List - Problems (1) DONIS (acute kidney injury) Code(s): N17.9 - ACUTE KIDNEY FAILURE, UNSPECIFIED (2) Hyperkalemia Code(s): E87.5 - HYPERKALEMIA (3) CAD (coronary artery disease) Code(s): I25.10 - ATHSCL HEART DISEASE OF [place] CORONARY ARTERY W/O ANG PCTRS (4) CHF (congestive heart failure) Code(s): I50.9 - HEART FAILURE, UNSPECIFIED Assessment/Plan Current Medications Generic Name Dose Route Start Last Admin Trade Name Freq PRN Reason Stop Dose Admin Carvedilol 6.25 mg 01/17/20 22:00 01/18/20 09:55 Coreg - PO 6.25 mg BID I[facility] Administration Chlorhexidine Gluconate 1 applic 01/13/20 22:00 01/17/20 21:21 Hibiclens For Decolonization - TP Not Given HS ISELA Heparin Sodium (Porcine) 5,000 unit 01/13/20 22:00 01/18/20 09:55 Heparin - SQ 5,000 unit BID I[facility] Administration Hydrocortisone Sodium Succinate 25 mg 01/19/20 10:00 Solu-Cortef - IVPB DAILY I[facility] IV Flush 10 ml 01/13/20 17:32 01/16/20 21:48 Joseph-Cath Flush IVPUSH 10 ml PRN PRN Administration FLUSH Ceftriaxone Sodium 1 gm/ 50 mls @ 100 mls/hr 01/15/20 10:00 01/18/20 09:55 Dextrose IVPB 100 mls/hr DAILY I[facility] Administration Protocol Insulin Aspart 1 vial 01/14/20 07:00 01/18/20 13:09 Novolog Vial Sliding Scale - SQ Not Given TIDAC [facility] Protocol Pantoprazole Sodium 40 mg 01/16/20 10:00 01/18/20 09:55 Protonix Iv IVPUSH 40 mg DAILY [facility] Administration Risperidone 2 mg 01/13/20 22:00 01/17/20 21:22 Risperdal Oral Solution - GT 2 mg HS [facility] Administration Risperidone 3 mg 01/14/20 10:00 01/18/20 09:55 Risperdal Oral Solution - GT 3 ml DAILY [facility] Administration Impression 1. DONIS 2. hyperkalemia 3. hypercalcemia 4. hx cva 5. hx htn 6. dm 7. resp failure requiring intubation 8. hypernatremia Plan - check cmp in am - renal function had been improving - avoid nsaids and nephrotoxins - pt tolerating feeds - monitor bp closely, avoid hypotension
--- NOTE | 2020-01-18 18:20 | PN ---
Progress Note, Physician Chief Complaint: AWAKE CONFUSED AFEBRILE BREATHING NON-LABORED - Current Medication List Current Medications: Active Medications Carvedilol (Coreg -) 6.25 mg PO BID [facility] Last Admin: 01/18/20 09:55 Dose: 6.25 mg Chlorhexidine Gluconate (Hibiclens For Decolonization -) 1 applic TP HS [facility] Last Admin: 01/17/20 21:21 Dose: Not Given Heparin Sodium (Porcine) (Heparin -) 5,000 unit SQ BID [facility] Last Admin: 01/18/20 09:55 Dose: 5,000 unit Hydrocortisone Sodium Succinate (Solu-Cortef -) 25 mg IVPB DAILY [facility] IV Flush (Joseph-Cath Flush) 10 ml IVPUSH PRN PRN PRN Reason: FLUSH Last Admin: 01/16/20 21:48 Dose: 10 ml Ceftriaxone Sodium 1 gm/ (Dextrose) 50 mls @ 100 mls/hr IVPB DAILY [facility]; Protocol Last Admin: 01/18/20 09:55 Dose: 100 mls/hr Insulin Aspart (Novolog Vial Sliding Scale -) 1 vial SQ TIDAC [facility]; Protocol Last Admin: 01/18/20 16:28 Dose: Not Given Pantoprazole Sodium (Protonix Iv) 40 mg IVPUSH DAILY [facility] Last Admin: 01/18/20 09:55 Dose: 40 mg Risperidone (Risperdal Oral Solution -) 2 mg GT HS [facility] Last Admin: 01/17/20 21:22 Dose: 2 mg Risperidone (Risperdal Oral Solution -) 3 mg GT DAILY [facility] Last Admin: 01/18/20 09:55 Dose: 3 ml - Objective Vital Signs: Vital Signs Temperature 97.4 F L 01/18/20 15:00 Pulse Rate 75 01/18/20 15:00 Respiratory Rate 18 01/18/20 15:00 Blood Pressure 128/70 01/18/20 15:00 O2 Sat by Pulse Oximetry (%) 90 L 01/18/20 09:00 Constitutional: Yes: No Distress, Obese Cardiovascular: Yes: Regular Rate and Rhythm, S1, S2 Respiratory: Yes: Diminished Gastrointestinal: Yes: Normal Bowel Sounds, Soft, Abdomen, Obese. No: Tenderness Labs: CBC, BMP 01/16/20 06:15 01/16/20 06:15 Assessment/Plan RESPIRATORY FAILURE S/P EXTUBATION UTI R/O SEPSIS SECONDARY TO UTI S/P TORSADES ANTIBIOTIC ALLERGIES CONTINUE CETRIAXONE QD
[2020-01-18] MEDS: CHLORHEXIDINE GLUCONATE 4% CLEANSER FOR DECOLONIZATION TP SCH (23:29)
[2020-01-19 05:57] VITALS: TEMP 95.5
[2020-01-19 08:17] LABS: BILIRUBIN,TOTAL 0.7 mg/dL (0.2-1); BLOOD UREA NITROGEN 37.7 mg/dL (7-18); CALCIUM 8.1 mg/dL (8.5-10.1); CREATININE 1.9 mg/dL (0.55-1.3); POTASSIUM 3.7 mmol/L (3.5-5.1); TOT PROT 5.5 g/dl (6.4-8.2)
[2020-01-19] MEDS ORDERED: cefTRIAXone SODIUM 1 GM VIAL ONE (08:38)
[2020-01-19] MEDS ORDERED: DEXTROSE 5%-WATER - 50 ML IVPB ONE (08:38)
[2020-01-19] MEDS: CARVEDILOL 3.125 MG TABLET (FP) PO SCH (09:45)
[2020-01-19] MEDS: HEPARIN NA (PORCINE) 5,000 UNITS/ML 1ML VIAL SQ SCH (09:45)
[2020-01-19] MEDS: CEFTRIAXONE 1 GM in DEXTROSE 5%-WATER - 50 ML IVPB SCH (09:45)
[2020-01-19] MEDS: INSULIN SLIDING SCALE (NOVOLOG) 1 VIAL SQ SCH (09:45)
[2020-01-19] MEDS: PANTOPRAZOLE SODIUM 40 MG VIAL IVPUSH SCH (09:45)
[2020-01-19] MEDS ORDERED: HYDROCORTISONE SOD SUCCINATE 100 MG/2 ML VIAL IVPB SCH (10:00)
[2020-01-19] MEDS: risperiDONE 1 MG/1 ML ML - 30 ML BOTTLE GT SCH (10:15)
--- NOTE | 2020-01-19 10:30 | DS ---
Physical Examination Vital Signs: Vital Signs Temperature 95.5 F L 01/19/20 05:37 Pulse Rate 80 01/19/20 05:37 Respiratory Rate 20 01/19/20 05:37 Blood Pressure 126/62 01/19/20 05:37 O2 Sat by Pulse Oximetry (%) 94 L 01/18/20 20:30 Constitutional: Yes: No Distress, Calm Cardiovascular: Yes: Regular Rate and Rhythm Respiratory: Yes: CTA Bilaterally Gastrointestinal: Yes: Normal Bowel Sounds, Soft, Abdomen, Obese. No: Tenderness Edema: No Labs: CBC, BMP 01/16/20 06:15 01/19/20 06:55 Discharge Summary Problems reviewed: Yes Reason For Visit: ACUTE KIDNEY INJURY,CHRONIC KIDNEY DISEASE,HYPERKA Current Active Problems DONIS (acute kidney injury) (Acute) Acute renal failure superimposed on chronic kidney disease (Acute) Acute respiratory failure (Acute) Acute respiratory failure (Acute) Diabetes mellitus (Acute) H/O cerebral infarction (Acute) HTN (hypertension) (Acute) Hyperkalemia (Acute) Hypothyroidism (Acute) Torsades de pointes (Acute) Ventricular tachycardia seen on monitoring coordinator (Acute) Hospital Course: admission history - Primary Care Physician PCP: Rona Tyson - Admission Chief Complaint: Abnormal Lab Value- Hyperkalemia History of Present Illness: This is a 69-year-old woman from [facility] with a past medical history significant for Schizophrenia, COPD, CHF, HTN, DM, CKD, Hypothyroidism, Cerebral Infarct, Dysphagia,s /p jejunostomy. Who presents to the emergency department for evaluation for elevated potassium. Patient is unable to provide HPI due to her clinical condition- non-verbal. In the ED, K- 7.3, patient had 2 episodes of Vtach with Torsades. Patient was given Hyperkalemia Protocol. Repeat K 5.3, Patient was given Amiodarone bolus then started on a Amiodarone Infusion. Renal was consulted for possible emergent dialysis. Patient will be admitted to ICU. ED course was noted for: (1) K: 7.3~5.3 (Hyperkalemia Protocol given) (2) Display Screen Fabricator- Vtach x2 episodes, with Torsades on Amiodarone Infusion, Mag Sulfate given (3) Cr: 4.5~4.7 (4) Troponin I 0.02 Hospital course-- she was intubated in ICU was on pressors and solucortef, iv antibiotics found to have UTI pressors weaned pt extubated tolerating pureed diet-- small amounts and J tube feeds Assessment/Plan echo 12/2019 severe global hypokinesis of LV, EF 35%. nl RV. valves WNL. RVSP normal tele: SR, As/Bailer Tenders Supervisor, ++ artifact Ventricular tachycardia, accelerated junctional rhythm - likely was artifact vs Afib - reportedly torsades in the ER and episode of VT while in ICU on amio gtt - likely in setting of electrolyte abnormalities, cardiomyopathy, amio now dc as sepsis, lytes have improved - trop neg x 3, EKG no ischemic changes, less likely ACS - device interrogated - [employer] - no VT or VF noted including during ER and ICU - QT normal 01/13--risperidone resumed--repeat ecg 01/17 QT remains stable. low threshold to stop this if QT 500+ afib - EGM from 11/11 showing approx 1 min afib; longest atrial hi rate episode (no EGM) 02/2019 approx 1 hour, max A rate measured close to 600 bpm 3) atrial rate histograms during mode switching showing the majority of rates in the >300 bpm range - not definitive but suspicious for afib - this is an old device which does not store EGM so data is limited - d/w patient's niece/HCP- no known hx afib but was not involved much in her care until now, lived in [place] up until 2-3 weeks ago - has history of blood transfusions, not sure why, and has had falls although not recently - if true significant PAF burden, CHADS VASC 4-5 (? CAD history), however given above will defer AC for now, pending PT eval and rehab as well as obtaining more information from prior doctors, which niece has been looking into. She agrees with plan to defer AC - will consider outpatient event monitor following dc s/p PPM - [employer] device - 6 months battery life left - needs close outpatient follow up - discussed with niece/HCP - was not aware of ppm septic shock, UTI: - manage per primary, ID - off pressors now, extubated DONIS on CKD: - renal following. Renal fx improved. chronic systolic HF: - EF 35% on echo here, CHF noted on chart from [place] - s/p PPM/ICD - home carvedilol 12.5 held initially--resumed at 3.125. bp stable--incr to 6.25 --aim to titrate up as bp tolerates - not on ZAYRA/ARB per admit med list, h/o "allergy" to lisinopril--defer to outpt cardio - holding home lasix for now CAD: - per chart, details not known - anemic-->holding clopidogrel--the level of indication for this should be decided on by her outpt tub chucker within 2 wks of hosp discharge - not on statin for now - no angina or signs of ACS here DM: - manage per primary schizophrenia: - Risperdal initially held do to VT, now resumed since QT normalized--as above stable for dc to [place] Condition: Improved - Instructions Referrals: Reymundo Chapa MD [Primary Care Provider] - [facility] - Home Medications Comprehensive Discharge Medication List: Ambulatory Orders Acetaminophen Oral Solution [Tylenol Oral Solution -] 650 mg GT Q6H PRN Albuterol 2.5/Ipratropium 0.5 [Duoneb -] 1 neb IH QID 01/10/20 Carvedilol [Coreg -] 12.5 mg GT BID 01/10/20 Clopidogrel Bisulfate [Plavix -] 75 mg GT DAILY 01/10/20 Dextran 70/Hypromellose/Pf [Genteal Tears 0.1%-0.3% Drop] 1 each OU TID Fludrocortisone Acetate [Florinef -] 0.1 mg GT ASDIR 01/10/20 Furosemide Oral Solution [Lasix Oral Solution -] 20 mg GT DAILY 01/10/20 Heparin Sodium,Porcine [Heparin Sodium] 5,000 unit IJ Q12H 01/10/20 Hydrocortisone [Cortef -] 10 mg GT DAILY 01/10/20 Insulin Lispro [Humalog] 100 unit SQ TID 01/10/20 Levothyroxine Sodium [Unithroid] 100 mcg GT DAILY 01/10/20 Pantoprazole Suspension [Protonix Packets For Oral Suspension -] 40 mg GT DAILY 01/10/20 Risperidone [Risperdal Oral Soln] 2 mg GT HS 01/10/20 Risperidone [Risperdal Oral Soln] 3 mg GT DAILY 01/10/20 Sennosides [Senna] 10 ml GT DAILY PRN 01/10/20
[2020-01-19 10:31] VITALS: BP 132/72; PULSE 75
--- NOTE | 2020-01-19 10:35 | PN ---
Progress Note, Physician History of Present Illness: pulmonary awake,no distress,-sob - Current Medication List Current Medications: Active Medications Carvedilol (Coreg -) 6.25 mg PO BID [facility] Last Admin: 01/19/20 09:45 Dose: 6.25 mg Chlorhexidine Gluconate (Hibiclens For Decolonization -) 1 applic TP HS [facility] Last Admin: 01/18/20 23:29 Dose: Not Given Heparin Sodium (Porcine) (Heparin -) 5,000 unit SQ BID [facility] Last Admin: 01/19/20 09:45 Dose: 5,000 unit Hydrocortisone Sodium Succinate (Solu-Cortef -) 25 mg IVPB DAILY [facility] Last Admin: 01/19/20 09:45 Dose: 25 mg IV Flush (Joseph-Cath Flush) 10 ml IVPUSH PRN PRN PRN Reason: FLUSH Last Admin: 01/16/20 21:48 Dose: 10 ml Ceftriaxone Sodium 1 gm/ (Dextrose) 50 mls @ 100 mls/hr IVPB DAILY [facility]; Protocol Last Admin: 01/19/20 09:45 Dose: 100 mls/hr Insulin Aspart (Novolog Vial Sliding Scale -) 1 vial SQ TIDAC [facility]; Protocol Last Admin: 01/19/20 09:45 Dose: Not Given Pantoprazole Sodium (Protonix Iv) 40 mg IVPUSH DAILY [facility] Last Admin: 01/19/20 09:45 Dose: 40 mg Risperidone (Risperdal Oral Solution -) 2 mg GT HS [facility] Last Admin: 01/18/20 23:29 Dose: 2 mg Risperidone (Risperdal Oral Solution -) 3 mg GT DAILY [facility] Last Admin: 01/19/20 10:15 Dose: 3 mg - Objective Vital Signs: Vital Signs Temperature 95.5 F L 01/19/20 05:37 Pulse Rate 75 01/19/20 10:00 Respiratory Rate 20 01/19/20 10:00 Blood Pressure 132/72 01/19/20 10:00 O2 Sat by Pulse Oximetry (%) 94 L 01/18/20 20:30 Constitutional: Yes: Well Nourished, Calm Eyes: Yes: WNL HENT: Yes: WNL Neck: Yes: WNL Cardiovascular: Yes: Regular Rate and Rhythm, S1, S2 Respiratory: Yes: Diminished (poor inspiratory effort) Gastrointestinal: Yes: Normal Bowel Sounds, Soft Extremities: Yes: WNL Edema: No Labs: CBC, BMP 01/19/20 06:55 Problem List - Problems (1) DONIS (acute kidney injury) Code(s): N17.9 - ACUTE KIDNEY FAILURE, UNSPECIFIED (2) Diabetes mellitus Code(s): E11.9 - TYPE 2 DIABETES MELLITUS WITHOUT COMPLICATIONS (3) H/O cerebral infarction Code(s): Z86.73 - PRSNL HX OF TIA (TIA), AND CEREB INFRC W/O RESID DEFICITS (4) HTN (hypertension) Code(s): I10 - ESSENTIAL (PRIMARY) HYPERTENSION (5) Hyperkalemia Code(s): E87.5 - HYPERKALEMIA (6) Hypothyroidism Code(s): E03.9 - HYPOTHYROIDISM, UNSPECIFIED (7) Torsades de pointes Code(s): I47.2 - VENTRICULAR TACHYCARDIA (8) Ventricular tachycardia seen on media monitor Code(s): I47.2 - VENTRICULAR TACHYCARDIA (9) CAD (coronary artery disease) Code(s): I25.10 - ATHSCL HEART DISEASE OF [place] CORONARY ARTERY W/O ANG PCTRS (10) CHF (congestive heart failure) Code(s): I50.9 - HEART FAILURE, UNSPECIFIED (11) Acute respiratory failure Code(s): J96.00 - ACUTE RESPIRATORY FAILURE, UNSP W HYPOXIA OR HYPERCAPNIA (12) Acute respiratory failure Code(s): J96.00 - ACUTE RESPIRATORY FAILURE, UNSP W HYPOXIA OR HYPERCAPNIA Assessment/Plan ASSESSMENT AND PLAN: s/p Acute Respiratory Failure V Tach Hyperkalemia improved Pneumonia Septic Shock Acute on Chronic Renal Failure Hypercalcemia LV Systolic/Diastolic Dysfunction COPD HTN DM Anemia Schizophrenia h/o CVA - OOB to chair - enteral feeds - DVT/GI prophylaxis DR ATKINS
--- NOTE | 2020-01-19 10:57 | PN ---
Progress Note (short form) - Note Progress Note: s: awake not answering questions Current Medications Carvedilol (Coreg -) 6.25 mg PO BID [facility] Last Admin: 01/19/20 09:45 Dose: 6.25 mg Chlorhexidine Gluconate (Hibiclens For Decolonization -) 1 applic TP HS [facility] Last Admin: 01/18/20 23:29 Dose: Not Given Heparin Sodium (Porcine) (Heparin -) 5,000 unit SQ BID [facility] Last Admin: 01/19/20 09:45 Dose: 5,000 unit Hydrocortisone Sodium Succinate (Solu-Cortef -) 25 mg IVPB DAILY [facility] Last Admin: 01/19/20 09:45 Dose: 25 mg IV Flush (Joseph-Cath Flush) 10 ml IVPUSH PRN PRN PRN Reason: FLUSH Last Admin: 01/16/20 21:48 Dose: 10 ml Ceftriaxone Sodium 1 gm/ (Dextrose) 50 mls @ 100 mls/hr IVPB DAILY [facility]; Protocol Last Admin: 01/19/20 09:45 Dose: 100 mls/hr Insulin Aspart (Novolog Vial Sliding Scale -) 1 vial SQ TIDAC [facility]; Protocol Last Admin: 01/19/20 09:45 Dose: Not Given Pantoprazole Sodium (Protonix Iv) 40 mg IVPUSH DAILY [facility] Last Admin: 01/19/20 09:45 Dose: 40 mg Risperidone (Risperdal Oral Solution -) 2 mg GT HS [facility] Last Admin: 01/18/20 23:29 Dose: 2 mg Risperidone (Risperdal Oral Solution -) 3 mg GT DAILY [facility] Last Admin: 01/19/20 10:15 Dose: 3 mg Vital Signs Period Temp Pulse Resp BP Sys/Schaeffer Pulse Ox Last 24 Hr 95.5 F-97.9 F 75-80 18-20 126-134/56-72 93-94 Constitutional: Yes: Well Nourished, No Distress, Calm Cardiovascular: Yes: Regular Rate and Rhythm, Murmur (2/6 ELBA lusb), S1, S2. No : Gallop Respiratory: Yes: Regular, CTA Bilaterally. No: Accessory Muscle Use, Rales ( tds (leo)) Extremities: No: Cold Edema: No Neurological: Yes: Alert. No: Seizure Psychiatric: No: Agitated no jaundice, diaphoresis Assessment/Plan echo 12/2019 severe global hypokinesis of LV, EF 35%. nl RV. valves WNL. RVSP normal tele: sinus, AP, PVCs, artifact ?Ventricular tachycardia, accelerated junctional rhythm - likely was artifact vs Afib - reportedly torsades in the ER and episode of VT while in ICU, was on amio gtt now dc'ed - trop neg x 3, EKG no ischemic changes, less likely ACS - device interrogated - [employer] - no VT or VF noted including during ER and ICU - QT normal 01/13--risperidone resumed--repeat ecg 01/17 QT remains stable. low threshold to stop this if QT 500+ afib - EGM from 11/11 showing approx 1 min afib; longest atrial hi rate episode (no EGM) 02/2019 approx 1 hour, max A rate measured close to 600 bpm 3) atrial rate histograms during mode switching showing the majority of rates in the >300 bpm range - not definitive but suspicious for afib - this is an old device which does not store EGM so data is limited - d/w patient's niece/HCP- no known hx afib but was not involved much in her care until now, lived in [place] up until 2-3 weeks ago - has history of blood transfusions, not sure why, and has had falls although not recently - if true significant PAF burden, CHADS VASC 4-5 (? CAD history), however given above will defer AC for now, pending PT eval and rehab as well as obtaining more information from prior doctors, which niece has been looking into. She agrees with plan to defer AC - will consider outpatient event monitor following dc s/p PPM - [employer] device - 6 months battery life left - needs close outpatient follow up - discussed with niece/HCP - was not aware of ppm septic shock, UTI: - manage per primary, ID - off pressors now, extubated DONIS on CKD: - renal following. Renal fx improved. chronic systolic HF: - EF 35% on echo here, CHF noted on chart from [place] - s/p PPM/ICD - home carvedilol 12.5 held initially--resumed at 3.125. bp stable--incr to 6.25 --aim to titrate up as bp tolerates - not on ZAYRA/ARB per admit med list, h/o "allergy" to lisinopril--defer to outpt cardio - holding lasix, appears euvolemic CAD: - per chart, details not known - anemic-->holding clopidogrel--the level of indication for this should be decided on by her outpt knockdown worker within 2 wks of hosp discharge - not on statin for now - no angina or signs of ACS here DM: - manage per primary schizophrenia: - Risperdal initially held do to VT, now resumed since QT normalized--as above
--- NOTE | 2020-01-19 11:58 | PN ---
Progress Note, Physician History of Present Illness: Pt seen and examined at bedside. She is awake and alert. She denies shortness of breath. She is tolerating feeds. - Objective Vital Signs: Vital Signs Temperature 95.5 F L 01/19/20 05:37 Pulse Rate 75 01/19/20 10:00 Respiratory Rate 20 01/19/20 10:00 Blood Pressure 132/72 01/19/20 10:00 O2 Sat by Pulse Oximetry (%) 93 L 01/19/20 09:00 Constitutional: Yes: Calm Eyes: Yes: Conjunctiva Clear HENT: Yes: Atraumatic Cardiovascular: Yes: S1, S2 Respiratory: Yes: On Nasal O2 Gastrointestinal: Yes: Soft Genitourinary: Yes: Incontinence Musculoskeletal: Yes: Muscle Weakness Edema: No Integumentary: Yes: WNL Neurological: Yes: Confusion Labs: CBC, BMP 01/16/20 06:15 01/19/20 06:55 Problem List - Problems (1) DONIS (acute kidney injury) Code(s): N17.9 - ACUTE KIDNEY FAILURE, UNSPECIFIED (2) Hyperkalemia Code(s): E87.5 - HYPERKALEMIA (3) CAD (coronary artery disease) Code(s): I25.10 - ATHSCL HEART DISEASE OF [place] CORONARY ARTERY W/O ANG PCTRS (4) CHF (congestive heart failure) Code(s): I50.9 - HEART FAILURE, UNSPECIFIED Assessment/Plan Laboratory Tests 01/16/20 01/19/20 06:15 06:55 BUN 50.1 H 37.7 H Creatinine 2.1 H 1.9 H Impression 1. DONIS 2. hyperkalemia 3. hypercalcemia 4. hx cva 5. hx htn 6. dm 7. resp failure requiring intubation 8. hypernatremia Plan - renal function is improving - monitor sodium - monitor labs in rehab - pt tolerating feeds - avoid nsaids and nephrotoxins
== END 2020-01-19 11:35 | DRG 871 ==
LOC: JER 18:14 → JERBED 21:01 → JICU 01-11 00:14 → J4S 01-13 16:06 → JERBED 01-14 04:10 → J4W 01-14 04:11
PROVIDERS: ADMIT Internal Medicine; ATTEND Internal Medicine
PROC: 5A1945Z Respiratory Ventilation, 24-96 Consecutive Hours (ICD-10-PCS; principal; 2020-01-11)
PROC: 0BH17EZ Insertion of Endotracheal Airway into Trachea, Via Natural or Artificial Opening (ICD-10-PCS; 2020-01-11)
PROC: 30233N1 Transfusion of Nonautologous Red Blood Cells into Peripheral Vein, Percutaneous Approach (ICD-10-PCS; 2020-01-13)
DX: A41.50 Gram-negative sepsis, unspecified (principal); J18.9 Pneumonia, unspecified organism; J96.01 Acute respiratory failure with hypoxia; R65.21 Severe sepsis with septic shock; N17.9 Acute kidney failure, unspecified; I47.2 Ventricular tachycardia; I50.22 Chronic systolic (congestive) heart failure; J98.11 Atelectasis; I13.0 Hypertensive heart and chronic kidney disease with heart failure and stage 1 through stage 4 chronic kidney disease, or unspecified chronic kidney disease; E87.0 Hyperosmolality and hypernatremia; N39.0 Urinary tract infection, site not specified; E87.5 Hyperkalemia; I45.81 Long QT syndrome; I25.10 Atherosclerotic heart disease of native coronary artery without angina pectoris; E83.52 Hypercalcemia; F20.9 Schizophrenia, unspecified; J44.9 Chronic obstructive pulmonary disease, unspecified; D64.9 Anemia, unspecified; E11.9 Type 2 diabetes mellitus without complications; E03.9 Hypothyroidism, unspecified; I48.91 Unspecified atrial fibrillation; E87.6 Hypokalemia; N18.3 Chronic kidney disease, stage 3 (moderate); K21.9 Gastro-esophageal reflux disease without esophagitis; I95.9 Hypotension, unspecified; D72.829 Elevated white blood cell count, unspecified
CPT/HCPCS: 31500; 36415; 36430; 36600; 71045-TC-FY; 74230-TC-FY; 76775-TC; 80048; 80053; 81003; 82272; 82310; 82550; 82565; 82803; 82962; 83010; 83036; 83516; 83520; 83605; 83615; 83735; 83970; 84100; 84133; 84155; 84165; 84300; 84443; 84484; 85025; 85027; 86038; 86225; 86256; 86850; 86900; 86901; 86922; 87040; 87070; 87086; 87186; 87205; 92611-GN; 93005; 93010; 93306-TC; 94002; 97116-GP; 97161-GP; 99285-25; G0480; J0282; J1644; J2794; J7030; P9058